=== PATIENT | female | born 1945 | race Caucasian/White ===

== ENCOUNTER 2017-08-23 18:14 | Emergency (ER) | payer MEDICARE, OTHER ==
[2017-08-23 20:10] LABS: ADD MAN DIFF? NO
[2017-08-23 20:30] LABS: ALANINE AMINOTRANSFERASE 21 IU/L (13-69); ALBUMIN/GLOBULIN RATIO 1.21; ALKALINE PHOSPHATASE 58 IU/L (42-121); ANION GAP 15 (8-16); ASPARTATE AMINO TRANSFERASE 18 IU/L (15-46); BLOOD UREA NITROGEN 32 mg/dl (7-20); CALCIUM 9.4 mg/dl (8.4-10.2); CARBON DIOXIDE 24 mmol/L (21-31); CHLORIDE 105 mmol/L (97-110); CREATININE 1.07 mg/dl (0.44-1.00); GLUCOSE 113 mg/dl (70-220); LIPASE 133 U/L (23-300); POTASSIUM 5.2 mmol/L (3.5-5.1); SODIUM 139 mmol/L (135-144); TOTAL PROTEIN 7.3 g/dl (6.1-8.1)
[2017-08-23] MEDS: SOD CHLORIDE 0.9% 500 ML IV ×2 (20:30→21:55)
[2017-08-23 20:32] LABS: ADD UMIC NO; UR ASCORBIC ACID NEGATIVE (NEGATIVE); UR BILIRUBIN (Dip) NEGATIVE (NEGATIVE); UR BLOOD (Dip) NEGATIVE (NEGATIVE); UR CLARITY CLEAR (CLEAR); UR COLOR YELLOW (YELLOW); UR GLUCOSE (Dip) NEGATIVE (NEGATIVE); UR KETONES (Dip) TRACE mg/dL (NEGATIVE); UR LEUKOCYTE ESTERASE (Dip) NEGATIVE Leu/ul (NEGATIVE); UR NITRITE (Dip) NEGATIVE (NEGATIVE); UR SPECIFIC GRAVITY (Dip) 1.019 (1.003-1.030); UR TOTAL PROTEIN (Dip) NEGATIVE (NEGATIVE); UR UROBILINOGEN (Dip) NEGATIVE (NEGATIVE)
[2017-08-23 21:10] LABS: BASOPHIL # 0.1 10^3/ul (0.0-0.1); BASOPHILS % 0.9 % (0.0-2.0); EOSINOPHILS # 0.2 10^3/ul (0.0-0.5); EOSINOPHILS % 2.7 % (0.0-7.0); HEMATOCRIT 34.5 % (37.0-47.0); HEMOGLOBIN 11.1 g/dl (12.0-16.0); LYMPHOCYTES # 2.4 10^3/ul (0.8-2.9); LYMPHOCYTES % 36.3 % (15.0-51.0); MEAN CORPUSCULAR HEMOGLOBIN 29.1 pg (29.0-33.0); MEAN CORPUSCULAR HGB CONC 32.2 g/dl (32.0-37.0); MEAN CORPUSCULAR VOLUME 90.6 fl (82.0-101.0); MEAN PLATELET VOLUME 10.5 fl (7.4-10.4); MONOCYTE # 0.5 10^3/ul (0.3-0.9); MONOCYTES % 7.5 % (0.0-11.0); NEUTROPHIL # 3.4 10^3/ul (1.6-7.5); NEUTROPHILS % 52.4 % (39.0-77.0); PLATELET COUNT 253 10^3/UL (140-415); RED BLOOD COUNT 3.81 10^6/ul (4.20-5.40); RED CELL DISTRIBUTION WIDTH 13.3 % (11.5-14.5)
[2017-08-23 21:10] LABS: WHITE BLOOD COUNT 6.6 10^3/ul (4.8-10.8)
[2017-08-23] MEDS: DICYCLOMINE 20 MG INJ IM (21:34)
[2017-08-23] MEDS: morphine 4 MG/ML VIAL IV (22:35)
[2017-08-23] MEDS: metroNIDAZOLE 500 MG TAB PO (22:36)
[2017-08-23] MEDS: CIPROFLOXACIN 500 MG TAB PO (22:36)
== END 2017-08-23 23:45 | disposition home or self-care (01) ==
LOC: E/R 18:14
DX: K57.32 Diverticulitis of large intestine without perforation or abscess without bleeding (principal); R39.2 Extrarenal uremia; I10 Essential (primary) hypertension
CPT/HCPCS: 36415; 74176; 80053; 81003; 83690; 85025; 96361; 96372; 96374; 99285-25

== ENCOUNTER 2017-09-11 09:56 | Inpatient (IN) | payer MEDICARE, OTHER ==
[2017-09-11] MEDS: SOD CHLORIDE 0.9% 1,000 ML IV (10:33)
[2017-09-11 10:39] LABS: ADD MAN DIFF? NO
[2017-09-11 10:41] LABS: BASOPHIL # 0.1 10^3/ul (0.0-0.1); BASOPHILS % 1.2 % (0.0-2.0); EOSINOPHILS # 0.3 10^3/ul (0.0-0.5); EOSINOPHILS % 6.6 % (0.0-7.0); HEMATOCRIT 35.4 % (37.0-47.0); HEMOGLOBIN 11.7 g/dl (12.0-16.0); LYMPHOCYTES # 1.7 10^3/ul (0.8-2.9); LYMPHOCYTES % 41.2 % (15.0-51.0); MEAN CORPUSCULAR HEMOGLOBIN 28.6 pg (29.0-33.0); MEAN CORPUSCULAR HGB CONC 33.1 g/dl (32.0-37.0); MEAN CORPUSCULAR VOLUME 86.6 fl (82.0-101.0); MEAN PLATELET VOLUME 9.8 fl (7.4-10.4); MONOCYTE # 0.3 10^3/ul (0.3-0.9); MONOCYTES % 7.3 % (0.0-11.0); NEUTROPHIL # 1.8 10^3/ul (1.6-7.5); NEUTROPHILS % 43.2 % (39.0-77.0); PLATELET COUNT 229 10^3/UL (140-415); RED BLOOD COUNT 4.09 10^6/ul (4.20-5.40); RED CELL DISTRIBUTION WIDTH 13.7 % (11.5-14.5)
[2017-09-11 10:41] LABS: WHITE BLOOD COUNT 4.2 10^3/ul (4.8-10.8)
[2017-09-11 10:57] LABS: ALANINE AMINOTRANSFERASE 19 IU/L (13-69); ALBUMIN 4.1 g/dl (3.3-4.9); ALKALINE PHOSPHATASE 56 IU/L (42-121); ANION GAP 14 (8-16); ASPARTATE AMINO TRANSFERASE 19 IU/L (15-46); BILIRUBIN,INDIRECT 0.1 mg/dl (0-1.1); BILIRUBIN,TOTAL 0.1 mg/dl (0.2-1.3); BLOOD UREA NITROGEN 24 mg/dl (7-20); CALCIUM 9.5 mg/dl (8.4-10.2); CARBON DIOXIDE 28 mmol/L (21-31); CHLORIDE 104 mmol/L (97-110); CREATININE 0.98 mg/dl (0.44-1.00); GLUCOSE 108 mg/dl (70-220); LIPASE 101 U/L (23-300); SODIUM 142 mmol/L (135-144); TOTAL PROTEIN 7.5 g/dl (6.1-8.1)
[2017-09-11 10:59] LABS: ADD UMIC YES; UR ASCORBIC ACID NEGATIVE (NEGATIVE); UR BACTERIA FEW /HPF (NONE SEEN); UR BILIRUBIN (Dip) NEGATIVE (NEGATIVE); UR BLOOD (Dip) 1+ mg/dL (NEGATIVE); UR CLARITY SLIGHTLY CLOUDY (CLEAR); UR COLOR YELLOW (YELLOW); UR GLUCOSE (Dip) NEGATIVE (NEGATIVE); UR KETONES (Dip) NEGATIVE (NEGATIVE); UR LEUKOCYTE ESTERASE (Dip) 2+ Leu/ul (NEGATIVE); UR MUCUS MANY /HPF (NONE SEEN); UR NITRITE (Dip) NEGATIVE (NEGATIVE); UR RBC 7 /HPF (0-5); UR SPECIFIC GRAVITY (Dip) 1.024 (1.003-1.030); UR SQUAMOUS EPITHELIAL CELL FEW /HPF (FEW); UR TOTAL PROTEIN (Dip) 2+ mg/dl (NEGATIVE); UR UROBILINOGEN (Dip) 1+ mg/dL (NEGATIVE); UR WBC 13 /HPF (0-5)
[2017-09-11] MEDS: SOD CHLORIDE 0.9% 100 ML (12:03)
[2017-09-11] MEDS: IOHEXOL 300MG/ML 150 ML BTL (12:03)
[2017-09-11] MEDS: KETOROLAC 15 MG INJ IV (13:41)
[2017-09-11] MEDS: PIPER-TAZO 3.375 GM IV (PMX) 100 ML IVPB ×2 (13:41→20:07)
[2017-09-11] MEDS ORDERED: ONDANSETRON 4 MG INJ IV (14:00)
[2017-09-11] MEDS ORDERED: ACETAMINOPHEN 325 MG TAB PO (14:00)
[2017-09-11] MEDS: LOSARTAN 50 MG TAB PO (18:14)
[2017-09-11] MEDS: AMLODIPINE 5 MG TAB PO (18:14)
[2017-09-11] MEDS: DEXTROSE 5%-0.45% NACL 1,000 ML IV (18:55)
[2017-09-11] MEDS: DIVALPROEX (EC) 500 MG TAB PO (20:07)
[2017-09-12] MEDS: PANTOPRAZOLE (EC) 40 MG TAB PO (05:24)
[2017-09-12] MEDS: PIPER-TAZO 3.375 GM IV (PMX) 100 ML IVPB ×3 (05:24→12:20)
[2017-09-12 06:03] LABS: ADD MAN DIFF? NO
[2017-09-12 06:07] LABS: BASOPHIL # 0.1 10^3/ul (0.0-0.1)
[2017-09-12 06:18] LABS: EOSINOPHILS # 0.3 10^3/ul (0.0-0.5); EOSINOPHILS % 6.2 % (0.0-7.0); HEMATOCRIT 29.4 % (37.0-47.0); HEMOGLOBIN 9.9 g/dl (12.0-16.0); LYMPHOCYTES # 2.3 10^3/ul (0.8-2.9); LYMPHOCYTES % 43.7 % (15.0-51.0); MEAN CORPUSCULAR HEMOGLOBIN 29.3 pg (29.0-33.0); MEAN CORPUSCULAR HGB CONC 33.7 g/dl (32.0-37.0); MEAN PLATELET VOLUME 10.3 fl (7.4-10.4); MONOCYTE # 0.4 10^3/ul (0.3-0.9); MONOCYTES % 7.6 % (0.0-11.0); NEUTROPHIL # 2.1 10^3/ul (1.6-7.5); NEUTROPHILS % 41.3 % (39.0-77.0); PLATELET COUNT 180 10^3/UL (140-415); RED BLOOD COUNT 3.38 10^6/ul (4.20-5.40)
[2017-09-12 06:18] LABS: WHITE BLOOD COUNT 5.2 10^3/ul (4.8-10.8)
[2017-09-12 06:57] LABS: ALANINE AMINOTRANSFERASE 15 IU/L (13-69); ALBUMIN/GLOBULIN RATIO 0.93; ALKALINE PHOSPHATASE 40 IU/L (42-121); ANION GAP 10 (8-16); ASPARTATE AMINO TRANSFERASE 16 IU/L (15-46); BILIRUBIN,INDIRECT 0.1 mg/dl (0-1.1); BILIRUBIN,TOTAL 0.1 mg/dl (0.2-1.3); BLOOD UREA NITROGEN 17 mg/dl (7-20); CALCIUM 8.8 mg/dl (8.4-10.2); CARBON DIOXIDE 26 mmol/L (21-31); CHLORIDE 106 mmol/L (97-110); CREATININE 0.88 mg/dl (0.44-1.00); GLUCOSE 128 mg/dl (70-220); POTASSIUM 4.1 mmol/L (3.5-5.1); SODIUM 138 mmol/L (135-144); TOTAL PROTEIN 6.2 g/dl (6.1-8.1)
[2017-09-12] MEDS: DEXTROSE 5%-0.45% NACL 1,000 ML IV ×2 (07:20→09:16)
[2017-09-12] MEDS: AMLODIPINE 5 MG TAB PO ×2 (09:00→11:23)
[2017-09-12] MEDS: LOSARTAN 50 MG TAB PO ×2 (09:00→11:23)
[2017-09-12] MEDS: DIVALPROEX (EC) 500 MG TAB PO ×2 (09:04→12:41)
[2017-09-12] MEDS: DOCUSATE SODIUM 100 MG CAP PO (09:04)
== END 2017-09-12 16:48 | disposition home or self-care (01) | DRG 392 ==
LOC: E/R 09:56 → PP2 16:06
DX: K57.92 Diverticulitis of intestine, part unspecified, without perforation or abscess without bleeding (principal); G40.909 Epilepsy, unspecified, not intractable, without status epilepticus; I10 Essential (primary) hypertension; E78.5 Hyperlipidemia, unspecified
CPT/HCPCS: 36415; 74177; 80053; 81001; 83690; 84443; 85025; 87081; 87086; 93005; 96374; 96375; 99285-25

== ENCOUNTER 2017-10-16 19:42 | Emergency (ER) | payer MEDICARE, OTHER ==
[2017-10-16 20:17] LABS: ADD MAN DIFF? NO
[2017-10-16 20:19] LABS: BASOPHILS % 0.7 % (0.0-2.0); EOSINOPHILS # 0.2 10^3/ul (0.0-0.5); HEMATOCRIT 35.7 % (37.0-47.0); HEMOGLOBIN 11.9 g/dl (12.0-16.0); LYMPHOCYTES % 34.2 % (15.0-51.0); MEAN CORPUSCULAR HEMOGLOBIN 28.6 pg (29.0-33.0); MEAN CORPUSCULAR HGB CONC 33.3 g/dl (32.0-37.0); MEAN CORPUSCULAR VOLUME 85.8 fl (82.0-101.0); MEAN PLATELET VOLUME 9.5 fl (7.4-10.4); MONOCYTE # 0.6 10^3/ul (0.3-0.9); MONOCYTES % 10.1 % (0.0-11.0); NEUTROPHIL # 3.1 10^3/ul (1.6-7.5); NEUTROPHILS % 51.7 % (39.0-77.0); PLATELET COUNT 215 10^3/UL (140-415); RED BLOOD COUNT 4.16 10^6/ul (4.20-5.40); RED CELL DISTRIBUTION WIDTH 14.2 % (11.5-14.5)
[2017-10-16 20:40] LABS: ANION GAP 17 (8-16); BLOOD UREA NITROGEN 31 mg/dl (7-20); CALCIUM 9.4 mg/dl (8.4-10.2); CARBON DIOXIDE 27 mmol/L (21-31); CHLORIDE 105 mmol/L (97-110); CREATININE 1.33 mg/dl (0.44-1.00); GLUCOSE 123 mg/dl (70-220); POTASSIUM 4.3 mmol/L (3.5-5.1); SODIUM 145 mmol/L (135-144)
[2017-10-16] MEDS: SOD CHLORIDE 0.9% 500 ML IV (20:46)
[2017-10-16] MEDS: KETOROLAC 15 MG INJ IV (20:46)
[2017-10-16] MEDS: DICYCLOMINE 20 MG INJ IM (20:47)
== END 2017-10-16 22:16 | disposition home or self-care (01) ==
LOC: E/R 19:42
DX: R10.84 Generalized abdominal pain (principal); I10 Essential (primary) hypertension
CPT/HCPCS: 36415; 74019; 80048; 85025; 96372; 96374; 99284-25

== ENCOUNTER 2017-10-19 15:30 | Emergency (ER) | payer MEDICARE, OTHER ==
[2017-10-19] MEDS: SOD CHLORIDE 0.9% 1,000 ML IV (16:18)
[2017-10-19] MEDS: morphine 4 MG/ML VIAL IV (16:18)
[2017-10-19] MEDS: ONDANSETRON 4 MG INJ IV ×2 (16:18→18:38)
[2017-10-19 16:43] LABS: ADD MAN DIFF? NO
[2017-10-19 16:45] LABS: BASOPHILS % 0.7 % (0.0-2.0); EOSINOPHILS # 0.1 10^3/ul (0.0-0.5); EOSINOPHILS % 2.4 % (0.0-7.0); HEMATOCRIT 33.2 % (37.0-47.0); LYMPHOCYTES # 1.6 10^3/ul (0.8-2.9); LYMPHOCYTES % 29.7 % (15.0-51.0); MEAN CORPUSCULAR HEMOGLOBIN 28.7 pg (29.0-33.0); MEAN CORPUSCULAR HGB CONC 33.1 g/dl (32.0-37.0); MEAN CORPUSCULAR VOLUME 86.7 fl (82.0-101.0); MEAN PLATELET VOLUME 10.1 fl (7.4-10.4); MONOCYTE # 0.5 10^3/ul (0.3-0.9); MONOCYTES % 9.4 % (0.0-11.0); NEUTROPHIL # 3.1 10^3/ul (1.6-7.5); NEUTROPHILS % 57.4 % (39.0-77.0); PLATELET COUNT 209 10^3/UL (140-415); RED BLOOD COUNT 3.83 10^6/ul (4.20-5.40); RED CELL DISTRIBUTION WIDTH 14.3 % (11.5-14.5)
[2017-10-19 16:45] LABS: WHITE BLOOD COUNT 5.5 10^3/ul (4.8-10.8)
[2017-10-19 17:00] LABS: INR 0.91; PROTIME 12.3 Sec (11.9-14.9)
[2017-10-19 17:01] LABS: PARTIAL THROMBOPLASTIN TIME 42.1 Sec (25.0-35.0)
[2017-10-19 17:05] LABS: ALANINE AMINOTRANSFERASE 9 IU/L (13-69); ALBUMIN 3.9 g/dl (3.3-4.9); ALBUMIN/GLOBULIN RATIO 1.14; ALKALINE PHOSPHATASE 46 IU/L (42-121); AMYLASE 50 U/L (11-123); ANION GAP 18 (8-16); ASPARTATE AMINO TRANSFERASE 18 IU/L (15-46); BLOOD UREA NITROGEN 20 mg/dl (7-20); CALCIUM 9.2 mg/dl (8.4-10.2); CARBON DIOXIDE 29 mmol/L (21-31); CHLORIDE 104 mmol/L (97-110); CREATININE 0.96 mg/dl (0.44-1.00); GLUCOSE 92 mg/dl (70-220); LIPASE 66 U/L (23-300); POTASSIUM 4.4 mmol/L (3.5-5.1); SODIUM 147 mmol/L (135-144); TOTAL PROTEIN 7.3 g/dl (6.1-8.1)
[2017-10-19 17:15] LABS: ADD UMIC YES; UR ASCORBIC ACID NEGATIVE (NEGATIVE); UR BILIRUBIN (Dip) NEGATIVE (NEGATIVE); UR BLOOD (Dip) NEGATIVE (NEGATIVE); UR CLARITY SLIGHTLY CLOUDY (CLEAR); UR COLOR YELLOW (YELLOW); UR GLUCOSE (Dip) NEGATIVE (NEGATIVE); UR KETONES (Dip) TRACE mg/dL (NEGATIVE); UR LEUKOCYTE ESTERASE (Dip) TRACE Leu/ul (NEGATIVE); UR MUCUS MANY /HPF (NONE SEEN); UR NITRITE (Dip) NEGATIVE (NEGATIVE); UR RBC 2 /HPF (0-5); UR SPECIFIC GRAVITY (Dip) 1.024 (1.003-1.030); UR TOTAL PROTEIN (Dip) 2+ mg/dl (NEGATIVE); UR UROBILINOGEN (Dip) 2+ mg/dL (NEGATIVE); UR WBC 5 /HPF (0-5)
[2017-10-19 17:17] LABS: TROPONIN-I < 0.012 ng/ml (0.00-0.12)
[2017-10-19] MEDS: HYDROmorphONE 0.5 MG/0.5 ML SYG IV (18:39)
[2017-10-19] MEDS: KETOROLAC 30 MG INJ IV (18:39)
== END 2017-10-19 19:09 | disposition home or self-care (01) ==
LOC: E/R 15:30
DX: K57.90 Diverticulosis of intestine, part unspecified, without perforation or abscess without bleeding (principal); I10 Essential (primary) hypertension
CPT/HCPCS: 80053; 81001; 82150; 83690; 84484; 85025; 85610; 85730; 87086; 93005; 96374; 96375; 96376; 99284-25

== ENCOUNTER 2017-10-20 20:50 | Emergency (ER) | payer MEDICARE, OTHER ==
[2017-10-20] MEDS: ONDANSETRON 4 MG INJ IV (22:04)
[2017-10-20] MEDS: morphine 4 MG/ML VIAL IV (22:07)
[2017-10-20 22:09] LABS: ADD MAN DIFF? NO
[2017-10-20 22:11] LABS: BASOPHILS % 0.6 % (0.0-2.0); EOSINOPHILS # 0.2 10^3/ul (0.0-0.5); EOSINOPHILS % 3.3 % (0.0-7.0); HEMATOCRIT 33.7 % (37.0-47.0); HEMOGLOBIN 10.9 g/dl (12.0-16.0); LYMPHOCYTES # 1.9 10^3/ul (0.8-2.9); LYMPHOCYTES % 38.8 % (15.0-51.0); MEAN CORPUSCULAR HEMOGLOBIN 28.3 pg (29.0-33.0); MEAN CORPUSCULAR HGB CONC 32.3 g/dl (32.0-37.0); MEAN CORPUSCULAR VOLUME 87.5 fl (82.0-101.0); MEAN PLATELET VOLUME 10.4 fl (7.4-10.4); MONOCYTE # 0.4 10^3/ul (0.3-0.9); NEUTROPHIL # 2.4 10^3/ul (1.6-7.5); NEUTROPHILS % 48.5 % (39.0-77.0); PLATELET COUNT 229 10^3/UL (140-415); RED BLOOD COUNT 3.85 10^6/ul (4.20-5.40); RED CELL DISTRIBUTION WIDTH 14.3 % (11.5-14.5)
[2017-10-20 22:11] LABS: WHITE BLOOD COUNT 4.9 10^3/ul (4.8-10.8)
[2017-10-20 22:46] LABS: ALANINE AMINOTRANSFERASE 18 IU/L (13-69); ALBUMIN 3.8 g/dl (3.3-4.9); ALBUMIN/GLOBULIN RATIO 1.08; ALKALINE PHOSPHATASE 101 IU/L (42-121); ANION GAP 11 (8-16); ASPARTATE AMINO TRANSFERASE 25 IU/L (15-46); BILIRUBIN,INDIRECT 0.1 mg/dl (0-1.1); BILIRUBIN,TOTAL 0.1 mg/dl (0.2-1.3); BLOOD UREA NITROGEN 25 mg/dl (7-20); CALCIUM 9.1 mg/dl (8.4-10.2); CARBON DIOXIDE 29 mmol/L (21-31); CHLORIDE 106 mmol/L (97-110); CREATININE 1.03 mg/dl (0.44-1.00); GLUCOSE 98 mg/dl (70-220); LIPASE 120 U/L (23-300); POTASSIUM 4.2 mmol/L (3.5-5.1); SODIUM 142 mmol/L (135-144); TOTAL PROTEIN 7.3 g/dl (6.1-8.1)
[2017-10-20 22:58] LABS: TROPONIN-I < 0.012 ng/ml (0.00-0.12)
== END 2017-10-20 23:50 | disposition home or self-care (01) ==
LOC: E/R 20:50
DX: R10.84 Generalized abdominal pain (principal); I10 Essential (primary) hypertension
CPT/HCPCS: 36415; 74176; 80053; 83690; 84484; 85025; 93005; 96374; 96375; 99285-25

== ENCOUNTER 2017-10-22 13:31 | Emergency (ER) | payer MEDICARE, OTHER ==
[2017-10-22] MEDS: metroNIDAZOLE 500 MG TAB PO (14:18)
[2017-10-22] MEDS: CIPROFLOXACIN 500 MG TAB PO (14:18)
[2017-10-22] MEDS: HYDROCODONE/APAP (10/325) TAB PO (14:19)
== END 2017-10-22 15:32 | disposition home or self-care (01) ==
LOC: E/R 13:31
DX: K57.92 Diverticulitis of intestine, part unspecified, without perforation or abscess without bleeding (principal)
CPT/HCPCS: 99284

== ENCOUNTER 2017-12-11 14:33 | Emergency (ER) | payer MEDICARE, OTHER ==
[2017-12-11] MEDS: morphine 2 MG INJ IV (17:35)
[2017-12-11] MEDS: FAMOTIDINE 20 MG TAB PO (17:35)
[2017-12-11] MEDS: ONDANSETRON 4 MG INJ IV (17:35)
[2017-12-11] MEDS: SOD CHLORIDE 0.9% 1,000 ML IV (17:35)
[2017-12-11 17:53] LABS: ADD MAN DIFF? NO
[2017-12-11 17:59] LABS: WHITE BLOOD COUNT 5.1 10^3/ul (4.8-10.8)
[2017-12-11 17:59] LABS: BASOPHILS % 0.8 % (0.0-2.0); EOSINOPHILS # 0.2 10^3/ul (0.0-0.5); EOSINOPHILS % 2.9 % (0.0-7.0); HEMATOCRIT 36.1 % (37.0-47.0); HEMOGLOBIN 11.7 g/dl (12.0-16.0); LYMPHOCYTES % 39.5 % (15.0-51.0); MEAN CORPUSCULAR HEMOGLOBIN 28.5 pg (29.0-33.0); MEAN CORPUSCULAR HGB CONC 32.4 g/dl (32.0-37.0); MEAN PLATELET VOLUME 10.4 fl (7.4-10.4); MONOCYTE # 0.4 10^3/ul (0.3-0.9); MONOCYTES % 8.4 % (0.0-11.0); NEUTROPHIL # 2.5 10^3/ul (1.6-7.5); NEUTROPHILS % 48.2 % (39.0-77.0); PLATELET COUNT 220 10^3/UL (140-415); RED CELL DISTRIBUTION WIDTH 14.2 % (11.5-14.5)
[2017-12-11 18:21] LABS: ALANINE AMINOTRANSFERASE 9 IU/L (13-69); ALBUMIN 3.7 g/dl (3.3-4.9); ALBUMIN/GLOBULIN RATIO 1.02; ALKALINE PHOSPHATASE 52 IU/L (42-121); ANION GAP 13 (8-16); ASPARTATE AMINO TRANSFERASE 25 IU/L (15-46); BLOOD UREA NITROGEN 35 mg/dl (7-20); CALCIUM 9.4 mg/dl (8.4-10.2); CARBON DIOXIDE 28 mmol/L (21-31); CHLORIDE 106 mmol/L (97-110); CREATININE 0.99 mg/dl (0.44-1.00); GLUCOSE 93 mg/dl (70-220); LIPASE 142 U/L (23-300); POTASSIUM 5.1 mmol/L (3.5-5.1); SODIUM 142 mmol/L (135-144); TOTAL PROTEIN 7.3 g/dl (6.1-8.1)
[2017-12-11 18:34] LABS: TROPONIN-I < 0.012 ng/ml (0.00-0.12)
[2017-12-11 18:38] LABS: URINE BLOOD (Dip) POC Negative (NEGATIVE); URINE GLUCOSE (Dip) POC Negative (NEGATIVE); URINE KETONES (Dip) POC 1+ (NEGATIVE); URINE LEUKOCYTE EST (Dip) POC 1+ (NEGATIVE); URINE NITRITE (Dip) POC Negative (NEGATIVE); URINE TOTAL PROTEIN POC Trace (NEGATIVE)
[2017-12-11 18:38] LABS: URINE PH (Dip) POC 5.5 (5.0-8.5)
[2017-12-11] MEDS ORDERED: PROPOFOL 200 MG INJ IV (19:00)
== END 2017-12-11 20:48 | disposition home or self-care (01) ==
LOC: E/R 14:33
DX: R10.13 Epigastric pain (principal); D64.9 Anemia, unspecified; R11.0 Nausea; I10 Essential (primary) hypertension; R40.2142 Coma scale, eyes open, spontaneous, at arrival to emergency department; R40.2252 Coma scale, best verbal response, oriented, at arrival to emergency department; R40.2362 Coma scale, best motor response, obeys commands, at arrival to emergency department
CPT/HCPCS: 74176; 76705; 80053; 81003; 83690; 84484; 85025; 93005; 96374; 96375; 99285-25

== ENCOUNTER 2018-02-02 11:54 | Inpatient (IN) | payer MEDICARE, OTHER ==
[2018-02-01] MEDS: CEFAZOLIN 2 GM/50 ML (PMX) 50 ML IVPB (16:00)
[2018-02-01] MEDS: metroNIDAZOLE 500 MG/NS (PMX) 100 ML IVPB (16:20)
[~2018-02-02 11:54] MED LIST: ACETAMINOPHEN 1000 MG/100 ML IVPB; ALBUMIN HUMAN 5% 250 ML INJ; CA CHLORIDE 10% 10 ML SYRINGE; CEFAZOLIN 1 GM INJ; DEXAMETHASONE 4 MG/ML 1 ML INJ; ONDANSETRON 4 MG INJ; SUGAMMADEX SODIUM 200 MG/2 ML VIAL IV; metroNIDAZOLE 500 MG/100 ML NS IVPB
[2018-02-02] MEDS ORDERED: FENTAnyl 50 MCG/ML VIAL (14:10)
[2018-02-02] MEDS ORDERED: MIDAZOLAM 1 MG/ML 2 ML INJ ×2 (14:13→14:17)
[2018-02-02] MEDS ORDERED: ROCURONIUM 50 MG INJ (14:13)
[2018-02-02] MEDS ORDERED: LIDOCAINE 2% (SDV) 5 ML INJ (14:13)
[2018-02-02] MEDS ORDERED: PROPOFOL 20 ML (14:13)
[2018-02-02] MEDS ORDERED: SUCCINYLCHOLINE CHLORIDE 100 MG/5 ML SYG IV (14:13)
[2018-02-02] MEDS ORDERED: ONDANSETRON 4 MG INJ (14:15)
[2018-02-02] MEDS: LIDOCAINE 1% (MPF) 30 ML INJ (16:21)
[2018-02-02] MEDS: BUPIVACAINE 0.25%/EPI (SDV) 30 ML INJ (16:21)
[2018-02-02] MEDS ORDERED: EPHEDrine 50 MG INJ (16:25)
[2018-02-02] MEDS ORDERED: ROPIVACAINE 0.5 % 30 ML VIAL (19:59)
[2018-02-02] MEDS ORDERED: HYDROmorphONE 1 MG/5 ML IV SYRINGE IV ×3 (20:25→20:30)
[2018-02-02] MEDS ORDERED: ONDANSETRON 4 MG INJ IV ×2 (20:30→23:00)
[2018-02-02] MEDS ORDERED: ACETAMINOPHEN 1000MG/100ML IV 100 ML IVPB (20:30)
[2018-02-02] MEDS ORDERED: LORAZEPAM 2 MG INJ IV (20:30)
[2018-02-02] MEDS ORDERED: HALOPERIDOL 5 MG INJ IV (20:30)
[2018-02-02] MEDS ORDERED: hydrALAzine 20 MG INJ IV (20:30)
[2018-02-02] MEDS ORDERED: FENTAnyl 50 MCG/ML VIAL IV ×2 (20:30)
[2018-02-02] MEDS ORDERED: LABETALOL HCL 20MG INJ IV (20:30)
[2018-02-02] MEDS ORDERED: MIDAZOLAM 1 MG/ML 2 ML INJ IV (20:30)
[2018-02-02] MEDS ORDERED: IPRATROPIUM (NEB) 0.5 MG/2.5 ML AMP HHN (20:30)
[2018-02-02] MEDS ORDERED: PROCHLORPERAZINE 10 MG INJ IV (20:30)
[2018-02-02] MEDS ORDERED: KETOROLAC 30 MG INJ IV (20:30)
[2018-02-02] MEDS ORDERED: DIPHENHYDRAMINE 50 MG INJ IV (20:30)
[2018-02-02] MEDS: HYDROmorphONE 1 MG/5 ML IV SYRINGE IV ×2 (20:42→21:09)
[2018-02-02 20:57] LABS: ADD MAN DIFF? NO
[2018-02-02] MEDS: ACETAMINOPHEN 1000MG/100ML IV 100 ML IVPB (20:59)
[2018-02-02 21:02] LABS: WHITE BLOOD COUNT 7.4 10^3/ul (4.8-10.8)
[2018-02-02 21:02] LABS: BASOPHILS % 0.4 % (0.0-2.0); EOSINOPHILS % 0.1 % (0.0-7.0); HEMATOCRIT 29.9 % (37.0-47.0); HEMOGLOBIN 9.9 g/dl (12.0-16.0); LYMPHOCYTES # 1.5 10^3/ul (0.8-2.9); LYMPHOCYTES % 19.8 % (15.0-51.0); MEAN CORPUSCULAR HEMOGLOBIN 29.4 pg (29.0-33.0); MEAN CORPUSCULAR HGB CONC 33.1 g/dl (32.0-37.0); MEAN CORPUSCULAR VOLUME 88.7 fl (82.0-101.0); MEAN PLATELET VOLUME 10.8 fl (7.4-10.4); MONOCYTE # 0.4 10^3/ul (0.3-0.9); NEUTROPHIL # 5.5 10^3/ul (1.6-7.5); NEUTROPHILS % 74.3 % (39.0-77.0); RED BLOOD COUNT 3.37 10^6/ul (4.20-5.40); RED CELL DISTRIBUTION WIDTH 14.7 % (11.5-14.5)
[2018-02-02 21:16] LABS: LACTIC ACID 1.9 mmol/L (0.5-2.0)
[2018-02-02 21:17] LABS: ANION GAP 17 (8-16); BLOOD UREA NITROGEN 19 mg/dl (7-20); CALCIUM 10.1 mg/dl (8.4-10.2); CARBON DIOXIDE 23 mmol/L (21-31); CHLORIDE 106 mmol/L (97-110); CREATININE 0.74 mg/dl (0.44-1.00); GLUCOSE 143 mg/dl (70-220); SODIUM 142 mmol/L (135-144)
[2018-02-02 21:19] LABS: INR 1.12; PROTIME 14.6 Sec (11.9-14.9); PT RATIO 1.1
[2018-02-02 21:23] LABS: PLATELET COUNT 104 10^3/UL (140-415); POSITIVE DIFF @See below
[2018-02-02 21:25] LABS: HOLD TRANSMISSIONS 1
[2018-02-02] MEDS ORDERED: metroNIDAZOLE 500 MG/NS (PMX) 100 ML IVPB (23:00)
[2018-02-02] MEDS ORDERED: CEFAZOLIN 3 GM in SOD CHLORIDE 0.9% 100 ML IVPB (23:00)
[2018-02-02] MEDS: morphine 2 MG INJ IV (23:12)
[2018-02-02] MEDS: CEFAZOLIN 2 GM/50 ML (PMX) 50 ML IVPB (23:20)
[2018-02-02] MEDS: D5W-0.45 NACL + KCL 20 MEQ 1,000 ML IV (23:27)
[2018-02-02] MEDS: ONDANSETRON 4 MG INJ IV (23:53)
[2018-02-02] MEDS: metroNIDAZOLE 500 MG/NS (PMX) 100 ML IVPB (23:54)
[2018-02-03] MEDS: KETOROLAC 15 MG INJ IV ×2 (00:45→14:14)
[2018-02-03] MEDS: ACETAMINOPHEN 1000MG/100ML IV 100 ML IVPB ×4 (02:12→19:46)
[2018-02-03] MEDS: CEFAZOLIN 2 GM/50 ML (PMX) 50 ML IVPB ×2 (04:52→11:33)
[2018-02-03 05:09] LABS: WHITE BLOOD COUNT 1.8 10^3/ul (4.8-10.8)
[2018-02-03 05:09] LABS: ABNORMAL IP MESSAGE 1; HEMATOCRIT 32.3 % (37.0-47.0); HEMOGLOBIN 10.5 g/dl (12.0-16.0); MEAN CORPUSCULAR HEMOGLOBIN 28.5 pg (29.0-33.0); MEAN CORPUSCULAR HGB CONC 32.5 g/dl (32.0-37.0); MEAN CORPUSCULAR VOLUME 87.8 fl (82.0-101.0); MEAN PLATELET VOLUME 10.1 fl (7.4-10.4); PLATELET COUNT 152 10^3/UL (140-415); RED BLOOD COUNT 3.68 10^6/ul (4.20-5.40); RED CELL DISTRIBUTION WIDTH 14.6 % (11.5-14.5)
[2018-02-03 05:17] LABS: POSITIVE DIFF @See below
[2018-02-03 05:18] LABS: ADD MAN DIFF? YES
[2018-02-03 05:42] LABS: ALANINE AMINOTRANSFERASE 23 IU/L (13-69); ALBUMIN 3.9 g/dl (3.3-4.9); ALBUMIN/GLOBULIN RATIO 1.44; ALKALINE PHOSPHATASE 41 IU/L (42-121); ANION GAP 16 (8-16); ASPARTATE AMINO TRANSFERASE 52 IU/L (15-46); BILIRUBIN,INDIRECT 0.3 mg/dl (0-1.1); BILIRUBIN,TOTAL 0.3 mg/dl (0.2-1.3); BLOOD UREA NITROGEN 19 mg/dl (7-20); CALCIUM 9.6 mg/dl (8.4-10.2); CARBON DIOXIDE 24 mmol/L (21-31); CHLORIDE 105 mmol/L (97-110); CREATININE 0.71 mg/dl (0.44-1.00); GLUCOSE 172 mg/dl (70-220); SODIUM 141 mmol/L (135-144); TOTAL PROTEIN 6.6 g/dl (6.1-8.1)
[2018-02-03] MEDS: PANTOPRAZOLE 40 MG INJ IV (06:13)
[2018-02-03] MEDS: metroNIDAZOLE 500 MG/NS (PMX) 100 ML IVPB ×2 (06:13→14:14)
[2018-02-03] MEDS: ENOXAPARIN 40 MG/0.4 ML SYG SC (06:20)
[2018-02-03] MEDS: morphine 2 MG INJ IV ×3 (06:22→21:00)
[2018-02-03] MEDS: HYDROmorphONE 0.5 MG/0.5 ML SYG IV ×2 (09:43→17:49)
[2018-02-03] MEDS: ONDANSETRON 4 MG INJ IV (09:43)
[2018-02-03] MEDS: D5W-0.45 NACL + KCL 20 MEQ 1,000 ML IV ×2 (12:13→17:51)
[2018-02-03 13:04] LABS: BAND NEUTROPHILS #M 0.5 10^3/ul (0.0-0.6); BAND NEUTROPHILS % (M) 32 % (0-4); EOSINOPHILS % (M) 1 % (0-7); GIANT THROMBO% (M) 2 % (0-0); LYMPHOCYTES #M 0.2 10^3/ul (0.8-2.9); LYMPHOCYTES % (M) 16 % (15-51); METAMYELOCYTES %M 3 % (0-0); MONOCYTE #M 0.1 10^3/ul (0.3-0.9); MONOCYTES % (M) 8 % (0-11); MYELOCYTES % (M) 1 % (0-0); PLATELET ESTIMATE NORMAL; PLATELET MORPHOLOGY COMMENT @See below; POIKILOCYTOSIS 1+ (0-0); PROMYELOCYTES % (M) 2 % (0-0); REACTIVE LYMPHOCYTES% (M) 4 % (0-0); SEG NEUT #M 0.6 10^3/ul (1.6-7.5); SEGMENTED NEUTROPHILS (M) % 33 % (39-77); SMUDGE%M 60 % (0-0)
[2018-02-04] MEDS: KETOROLAC 15 MG INJ IV ×2 (00:02→15:52)
[2018-02-04] MEDS: HYDROmorphONE 0.5 MG/0.5 ML SYG IV ×4 (01:39→18:30)
[2018-02-04] MEDS: ACETAMINOPHEN 1000MG/100ML IV 100 ML IVPB ×4 (01:43→20:38)
[2018-02-04 05:26] LABS: WHITE BLOOD COUNT 2.5 10^3/ul (4.8-10.8)
[2018-02-04 05:26] LABS: ABNORMAL IP MESSAGE 1; HEMATOCRIT 29.7 % (37.0-47.0); HEMOGLOBIN 9.5 g/dl (12.0-16.0); MEAN CORPUSCULAR HEMOGLOBIN 28.4 pg (29.0-33.0); MEAN CORPUSCULAR VOLUME 88.9 fl (82.0-101.0); MEAN PLATELET VOLUME 10.4 fl (7.4-10.4); PLATELET COUNT 151 10^3/UL (140-415); RED BLOOD COUNT 3.34 10^6/ul (4.20-5.40); RED CELL DISTRIBUTION WIDTH 15.4 % (11.5-14.5)
[2018-02-04 05:44] LABS: POSITIVE DIFF @See below
[2018-02-04 05:45] LABS: ADD MAN DIFF? YES
[2018-02-04 05:54] LABS: ALANINE AMINOTRANSFERASE 23 IU/L (13-69); ALBUMIN/GLOBULIN RATIO 1.11; ALKALINE PHOSPHATASE 39 IU/L (42-121); ANION GAP 13 (8-16); ASPARTATE AMINO TRANSFERASE 36 IU/L (15-46); BILIRUBIN,INDIRECT 0.4 mg/dl (0-1.1); BILIRUBIN,TOTAL 0.4 mg/dl (0.2-1.3); BLOOD UREA NITROGEN 28 mg/dl (7-20); CALCIUM 8.6 mg/dl (8.4-10.2); CARBON DIOXIDE 24 mmol/L (21-31); CHLORIDE 106 mmol/L (97-110); CREATININE 1.53 mg/dl (0.44-1.00); GLUCOSE 120 mg/dl (70-220); POTASSIUM 4.6 mmol/L (3.5-5.1); SODIUM 138 mmol/L (135-144); TOTAL PROTEIN 5.7 g/dl (6.1-8.1)
[2018-02-04] MEDS: PANTOPRAZOLE 40 MG INJ IV (06:00)
[2018-02-04] MEDS: ENOXAPARIN 40 MG/0.4 ML SYG SC (06:06)
[2018-02-04] MEDS: D5W-0.45 NACL + KCL 20 MEQ 1,000 ML IV ×3 (07:31→20:39)
[2018-02-04 09:30] LABS: UR BACTERIA FEW /HPF (NONE SEEN); UR RBC 4 /HPF (0-5); UR WBC 6 /HPF (0-5)
[2018-02-04 09:36] LABS: ADD UMIC YES; UR ASCORBIC ACID NEGATIVE (NEGATIVE); UR BILIRUBIN (Dip) NEGATIVE (NEGATIVE); UR BLOOD (Dip) NEGATIVE (NEGATIVE); UR CLARITY CLEAR (CLEAR); UR COLOR YELLOW (YELLOW); UR GLUCOSE (Dip) NEGATIVE (NEGATIVE); UR KETONES (Dip) NEGATIVE (NEGATIVE); UR LEUKOCYTE ESTERASE (Dip) TRACE Leu/ul (NEGATIVE); UR NITRITE (Dip) NEGATIVE (NEGATIVE); UR SPECIFIC GRAVITY (Dip) 1.023 (1.003-1.030); UR TOTAL PROTEIN (Dip) NEGATIVE (NEGATIVE); UR UROBILINOGEN (Dip) NEGATIVE (NEGATIVE)
[2018-02-04 10:06] LABS: BAND NEUTROPHILS #M 1.1 10^3/ul (0.0-0.6); BAND NEUTROPHILS % (M) 44 % (0-4); EOSINOPHILS % (M) 1 % (0-7); GIANT THROMBO% (M) 2 % (0-0); LYMPHOCYTES #M 0.9 10^3/ul (0.8-2.9); LYMPHOCYTES % (M) 37 % (15-51); METAMYELOCYTES %M 3 % (0-0); MONOCYTE #M 0.1 10^3/ul (0.3-0.9); MONOCYTES % (M) 6 % (0-11); MYELOCYTES % (M) 1 % (0-0); PLATELET ESTIMATE NORMAL; SEG NEUT #M 0.2 10^3/ul (1.6-7.5); SEGMENTED NEUTROPHILS (M) % 8 % (39-77); SMUDGE%M 12 % (0-0)
[2018-02-04] MEDS: DIVALPROEX (ER) 500 MG TAB PO ×2 (14:13→21:55)
[2018-02-04] MEDS: traMADol 50 MG TAB PO (23:29)
[2018-02-05] MEDS: SOD CHLORIDE 0.9% 500 ML IV (01:25)
[2018-02-05] MEDS: ACETAMINOPHEN 1000MG/100ML IV 100 ML IVPB ×4 (02:34→20:33)
[2018-02-05 05:19] LABS: WHITE BLOOD COUNT 2.4 10^3/ul (4.8-10.8)
[2018-02-05 05:19] LABS: ABNORMAL IP MESSAGE 1; HEMOGLOBIN 9.2 g/dl (12.0-16.0); MEAN CORPUSCULAR HEMOGLOBIN 29.3 pg (29.0-33.0); MEAN CORPUSCULAR HGB CONC 32.9 g/dl (32.0-37.0); MEAN CORPUSCULAR VOLUME 89.2 fl (82.0-101.0); MEAN PLATELET VOLUME 10.1 fl (7.4-10.4); PLATELET COUNT 173 10^3/UL (140-415); RED BLOOD COUNT 3.14 10^6/ul (4.20-5.40); RED CELL DISTRIBUTION WIDTH 15.9 % (11.5-14.5)
[2018-02-05 05:37] LABS: ADD MAN DIFF? YES; POSITIVE DIFF @See below
[2018-02-05 05:41] LABS: ANION GAP 16 (8-16); BLOOD UREA NITROGEN 40 mg/dl (7-20); CALCIUM 8.1 mg/dl (8.4-10.2); CARBON DIOXIDE 21 mmol/L (21-31); CHLORIDE 102 mmol/L (97-110); CREATININE 2.11 mg/dl (0.44-1.00); GLUCOSE 123 mg/dl (70-220); POTASSIUM 4.8 mmol/L (3.5-5.1); SODIUM 134 mmol/L (135-144)
[2018-02-05] MEDS: ENOXAPARIN 40 MG/0.4 ML SYG SC (06:23)
[2018-02-05] MEDS: PANTOPRAZOLE 40 MG INJ IV (06:25)
[2018-02-05] MEDS: DIVALPROEX (ER) 500 MG TAB PO ×3 (06:26→22:10)
[2018-02-05] MEDS: traMADol 50 MG TAB PO ×3 (06:26→23:36)
[2018-02-05] MEDS: D5W-0.45 NACL + KCL 20 MEQ 1,000 ML IV (08:42)
[2018-02-05 09:25] LABS: BAND NEUTROPHILS #M 1.2 10^3/ul (0.0-0.6); BAND NEUTROPHILS % (M) 51 % (0-4); BASOPHILS % (M) 2 % (0-2); LYMPHOCYTES #M 0.4 10^3/ul (0.8-2.9); LYMPHOCYTES % (M) 18 % (15-51); MONOCYTE #M 0.3 10^3/ul (0.3-0.9); MONOCYTES % (M) 15 % (0-11); PLATELET ESTIMATE NORMAL; REACTIVE LYMPHOCYTES% (M) 4 % (0-0); SEG NEUT #M 0.3 10^3/ul (1.6-7.5); SEGMENTED NEUTROPHILS (M) % 10 % (39-77); SMUDGE%M 3 % (0-0)
[2018-02-05] MEDS: morphine 2 MG INJ IV (09:54)
[2018-02-05] MEDS ORDERED: IOHEXOL 14.3 MG(I)/ML (ADULT) BTL PO (11:30)
[2018-02-05] MEDS: HYDROmorphONE 0.5 MG/0.5 ML SYG IV (11:50)
[2018-02-05] MEDS: IOHEXOL 14.3 MG(I)/ML (ADULT) BTL PO (14:00)
[2018-02-05] MEDS: PIPER-TAZO 2.25 GM (PMX) 50 ML IVPB ×2 (14:03→22:10)
[2018-02-05] MEDS: SOD CHLORIDE 0.9% 1,000 ML IV (15:01)
[2018-02-05 15:53] LABS: ADD UMIC YES; UR ASCORBIC ACID NEGATIVE (NEGATIVE); UR BACTERIA FEW /HPF (NONE SEEN); UR BILIRUBIN (Dip) NEGATIVE (NEGATIVE); UR BLOOD (Dip) NEGATIVE (NEGATIVE); UR CLARITY SLIGHTLY CLOUDY (CLEAR); UR COLOR AMBER (YELLOW); UR GLUCOSE (Dip) NEGATIVE (NEGATIVE); UR KETONES (Dip) NEGATIVE (NEGATIVE); UR LEUKOCYTE ESTERASE (Dip) TRACE Leu/ul (NEGATIVE); UR NITRITE (Dip) NEGATIVE (NEGATIVE); UR RBC 0 /HPF (0-5); UR SPECIFIC GRAVITY (Dip) 1.021 (1.003-1.030); UR SQUAMOUS EPITHELIAL CELL FEW /HPF (FEW); UR TOTAL PROTEIN (Dip) NEGATIVE (NEGATIVE); UR UROBILINOGEN (Dip) NEGATIVE (NEGATIVE); UR WBC 5 /HPF (0-5)
[2018-02-05 16:08] LABS: INR 1.38; PROTIME 17.2 Sec (11.9-14.9); PT RATIO 1.3
[2018-02-05 16:10] LABS: CREATININE,URINE RANDOM 124.56 mg/dl (20-320)
[2018-02-05 16:15] LABS: SODIUM,URINE RANDOM < 13 mmol/L (30-90)
[2018-02-05 16:21] LABS: PARTIAL THROMBOPLASTIN TIME 84.6 Sec (25.0-35.0)
[2018-02-05 16:29] LABS: D-DIMER 3181.31 ng/ml (<460)
[2018-02-05 17:02] LABS: TOTAL IRON BINDING CAPACITY 228 ug/dl (241-421)
[2018-02-05 17:04] LABS: IRON < 10 ug/dl (35-150)
[2018-02-05] MEDS: ONDANSETRON 4 MG INJ IV (23:37)
[2018-02-06] MEDS: SOD CHLORIDE 0.9% 1,000 ML IV ×2 (00:05→05:23)
[2018-02-06] MEDS: ACETAMINOPHEN 1000MG/100ML IV 100 ML IVPB ×3 (02:25→13:17)
[2018-02-06] MEDS: SOD CHLORIDE 0.9% 500 ML IV ×2 (02:50→19:52)
[2018-02-06] MEDS: HYDROmorphONE 0.5 MG/0.5 ML SYG IV ×3 (03:39→17:17)
[2018-02-06 05:13] LABS: WHITE BLOOD COUNT 2.3 10^3/ul (4.8-10.8)
[2018-02-06 05:13] LABS: ABNORMAL IP MESSAGE 1; HEMATOCRIT 27.7 % (37.0-47.0); HEMOGLOBIN 8.9 g/dl (12.0-16.0); MEAN CORPUSCULAR HEMOGLOBIN 28.6 pg (29.0-33.0); MEAN CORPUSCULAR HGB CONC 32.1 g/dl (32.0-37.0); MEAN CORPUSCULAR VOLUME 89.1 fl (82.0-101.0); PLATELET COUNT 160 10^3/UL (140-415); RED BLOOD COUNT 3.11 10^6/ul (4.20-5.40); RED CELL DISTRIBUTION WIDTH 16.4 % (11.5-14.5)
[2018-02-06 05:22] LABS: ADD MAN DIFF? YES; POSITIVE DIFF @See below
[2018-02-06 05:30] LABS: LACTIC ACID 1.4 mmol/L (0.5-2.0); PHOSPHORUS 4.9 mg/dl (2.5-4.9)
[2018-02-06 05:31] LABS: ALANINE AMINOTRANSFERASE 25 IU/L (13-69); ALBUMIN 2.3 g/dl (3.3-4.9); ALBUMIN/GLOBULIN RATIO 0.88; ALKALINE PHOSPHATASE 54 IU/L (42-121); ANION GAP 14 (8-16); ASPARTATE AMINO TRANSFERASE 25 IU/L (15-46); BILIRUBIN,INDIRECT 0.3 mg/dl (0-1.1); BILIRUBIN,TOTAL 0.3 mg/dl (0.2-1.3); BLOOD UREA NITROGEN 45 mg/dl (7-20); CALCIUM 8.1 mg/dl (8.4-10.2); CARBON DIOXIDE 20 mmol/L (21-31); CHLORIDE 104 mmol/L (97-110); CREATININE 2.93 mg/dl (0.44-1.00); GLUCOSE 75 mg/dl (70-220); POTASSIUM 5.1 mmol/L (3.5-5.1); SODIUM 133 mmol/L (135-144); TOTAL PROTEIN 4.9 g/dl (6.1-8.1)
[2018-02-06 05:39] LABS: MAGNESIUM 0.9 mg/dl (1.7-2.5)
[2018-02-06] MEDS: DIVALPROEX (ER) 500 MG TAB PO ×3 (06:00→13:17)
[2018-02-06] MEDS: PANTOPRAZOLE 40 MG INJ IV (06:18)
[2018-02-06] MEDS: PIPER-TAZO 2.25 GM (PMX) 50 ML IVPB ×2 (06:19→13:25)
[2018-02-06] MEDS: MAG SULFATE 2GM IN 50 ML IVPB ×2 (07:34→19:52)
[2018-02-06] MEDS: ENOXAPARIN 30 MG/0.3 ML SYG SC (08:41)
[2018-02-06] MEDS: morphine LIQ (10 MG/5 ML) CUP PO (10:27)
[2018-02-06 10:29] LABS: BAND NEUTROPHILS #M 0.7 10^3/ul (0.0-0.6); BAND NEUTROPHILS % (M) 34 % (0-4); EOSINOPHILS % (M) 2 % (0-7); ERYTHROBLAST% (NRBC) (M) 2 % (0-0); GIANT THROMBO% (M) 7 % (0-0); LYMPHOCYTES #M 0.5 10^3/ul (0.8-2.9); LYMPHOCYTES % (M) 24 % (15-51); MONOCYTE #M 0.2 10^3/ul (0.3-0.9); MONOCYTES % (M) 9 % (0-11); PLATELET ESTIMATE NORMAL; POIKILOCYTOSIS 3+ (0-0); PROMYELOCYTES % (M) 2 % (0-0); REACTIVE LYMPHOCYTES% (M) 2 % (0-0); SEG NEUT #M 0.7 10^3/ul (1.6-7.5); SEGMENTED NEUTROPHILS (M) % 29 % (39-77); SMUDGE%M 15 % (0-0)
[2018-02-06] MEDS: DEXTROSE 5%-0.9% NACL 1,000 ML IV ×2 (10:30→19:00)
[2018-02-06] MEDS: traMADol 50 MG TAB PO (14:36)
[2018-02-06] MEDS: SOD FERRIC GLUC COMPLX 125 MG in SOD CHLORIDE 0.9% 100 ML IVPB (17:30)
[2018-02-06] MEDS: HYDROmorphONE 1 MG/ML SYG IV (18:49)
[2018-02-06] MEDS ORDERED: ROCURONIUM 50 MG INJ ×2 (20:00→20:46)
[2018-02-06] MEDS ORDERED: MIDAZOLAM 1 MG/ML 2 ML INJ (20:46)
[2018-02-06] MEDS ORDERED: DEXAMETHASONE 4 MG/ML 1 ML INJ (20:46)
[2018-02-06] MEDS ORDERED: CEFAZOLIN 1 GM INJ (20:46)
[2018-02-06] MEDS ORDERED: ONDANSETRON 4 MG INJ (20:46)
[2018-02-06] MEDS ORDERED: GLYCOPYRROLATE 0.4 MG INJ (20:46)
[2018-02-06] MEDS ORDERED: NEOSTIGMINE 3 MG/3 ML SYRINGE (20:46)
[2018-02-06] MEDS ORDERED: PROPOFOL 20 ML (20:46)
[2018-02-06] MEDS ORDERED: NORepinephrine 4 MG INJ (20:57)
[2018-02-06] MEDS ORDERED: PHENYLephrine (100 MCG/ML) 5ML SYG (21:10)
[2018-02-06] MEDS: BUPIVACAINE 0.5%/EPI (SDV) 30 ML INJ (22:40)
[2018-02-06] MEDS: LIDOCAINE 1% (MPF) 30 ML INJ (22:41)
[2018-02-06] MEDS: PIPER-TAZO 3.375 GM IV (PMX) 100 ML (22:42)
[2018-02-06] MEDS ORDERED: FENTAnyl 50 MCG/ML VIAL (23:44)
[2018-02-07] MEDS ORDERED: FENTAnyl 50 MCG/ML VIAL (00:29)
[2018-02-07] MEDS ORDERED: HYDROmorphONE 0.5 MG/0.5 ML SYG IV (00:30)
[2018-02-07] MEDS: ACETAMINOPHEN 1000MG/100ML IV 100 ML IVPB ×2 (02:00→02:29)
[2018-02-07 02:04] LABS: WHITE BLOOD COUNT 2.1 10^3/ul (4.8-10.8)
[2018-02-07 02:04] LABS: ABNORMAL IP MESSAGE 1; HEMATOCRIT 28.7 % (37.0-47.0); HEMOGLOBIN 9.3 g/dl (12.0-16.0); MEAN CORPUSCULAR HEMOGLOBIN 29.1 pg (29.0-33.0); MEAN CORPUSCULAR HGB CONC 32.4 g/dl (32.0-37.0); MEAN CORPUSCULAR VOLUME 89.7 fl (82.0-101.0); MEAN PLATELET VOLUME 9.3 fl (7.4-10.4); PLATELET COUNT 133 10^3/UL (140-415); RED CELL DISTRIBUTION WIDTH 16.5 % (11.5-14.5)
[2018-02-07 02:05] LABS: ADD MAN DIFF? YES; POSITIVE DIFF @See below
[2018-02-07 02:28] LABS: LACTIC ACID 1.3 mmol/L (0.5-2.0)
[2018-02-07 02:29] LABS: ALANINE AMINOTRANSFERASE 24 IU/L (13-69); ALKALINE PHOSPHATASE 56 IU/L (42-121); ANION GAP 15 (8-16); ASPARTATE AMINO TRANSFERASE 32 IU/L (15-46); BILIRUBIN,INDIRECT 0.2 mg/dl (0-1.1); BILIRUBIN,TOTAL 0.2 mg/dl (0.2-1.3); BLOOD UREA NITROGEN 46 mg/dl (7-20); CALCIUM 7.8 mg/dl (8.4-10.2); CARBON DIOXIDE 16 mmol/L (21-31); CHLORIDE 111 mmol/L (97-110); CREATININE 2.44 mg/dl (0.44-1.00); GLUCOSE 82 mg/dl (70-220); POTASSIUM 4.6 mmol/L (3.5-5.1); SODIUM 137 mmol/L (135-144); TOTAL PROTEIN 4.5 g/dl (6.1-8.1)
[2018-02-07] MEDS: PIPER-TAZO 2.25 GM (PMX) 50 ML IVPB ×4 (05:00→21:20)
[2018-02-07] MEDS: PANTOPRAZOLE 40 MG INJ IV (05:41)
[2018-02-07] MEDS: DIVALPROEX (ER) 500 MG TAB PO ×4 (05:41→22:00)
[2018-02-07] MEDS: PROPOFOL 100 ML IV ×2 (07:00→12:30)
[2018-02-07 07:28] LABS: Arterial Base Excess -10.2 mmol/L (-3.0-3); Arterial Blood Gas Oxygen Sat 97.5 mmHG (95.0-100.0); Arterial COHb 0.5 % (0.0-3.0); Arterial Fraction of Oxyhgb 96.9 % (93.0-99.0); Arterial HCO3 15.9 mmol/L (22.0-26.0); Arterial MetHb 0.1 % (0.0-1.5); Arterial pCO2 35.9 mmhg (35-45); Blood Gas PS 5; MODE VENT - AC; Site A-Line
[2018-02-07] MEDS: ENOXAPARIN 30 MG/0.3 ML SYG SC (08:14)
[2018-02-07 08:21] LABS: WHITE BLOOD COUNT 2.4 10^3/ul (4.8-10.8)
[2018-02-07 08:21] LABS: ABNORMAL IP MESSAGE 1; HEMATOCRIT 28.4 % (37.0-47.0); HEMOGLOBIN 9.2 g/dl (12.0-16.0); MEAN CORPUSCULAR HEMOGLOBIN 28.4 pg (29.0-33.0); MEAN CORPUSCULAR HGB CONC 32.4 g/dl (32.0-37.0); MEAN CORPUSCULAR VOLUME 87.7 fl (82.0-101.0); MEAN PLATELET VOLUME 10.3 fl (7.4-10.4); NUCLEATED RED BLOOD CELLS% 2.1 /100WBC (0.0-0.0); PLATELET COUNT 168 10^3/UL (140-415); RED BLOOD COUNT 3.24 10^6/ul (4.20-5.40); RED CELL DISTRIBUTION WIDTH 16.5 % (11.5-14.5)
[2018-02-07] MEDS ORDERED: NA BICARBONATE 8.4% 50 ML SYG (08:22)
[2018-02-07] MEDS: NA BICARBONATE 8.4% 50 ML SYG IV (08:25)
[2018-02-07] MEDS: NORepinephrine 8MG/250 ML (PMX 250 ML IV (08:30)
[2018-02-07 08:31] LABS: ADD MAN DIFF? YES; POSITIVE DIFF @See below
[2018-02-07] MEDS: SOD CHLORIDE 0.9% 500 ML IV (08:31)
[2018-02-07 08:42] LABS: LACTIC ACID 1.4 mmol/L (0.5-2.0); MAGNESIUM 2.1 mg/dl (1.7-2.5)
[2018-02-07 08:43] LABS: ALANINE AMINOTRANSFERASE 14 IU/L (13-69); ALBUMIN 2.1 g/dl (3.3-4.9); ALKALINE PHOSPHATASE 59 IU/L (42-121); ANION GAP 11 (8-16); ASPARTATE AMINO TRANSFERASE 31 IU/L (15-46); BILIRUBIN,INDIRECT 0.1 mg/dl (0-1.1); BILIRUBIN,TOTAL 0.1 mg/dl (0.2-1.3); BLOOD UREA NITROGEN 47 mg/dl (7-20); CALCIUM 8.2 mg/dl (8.4-10.2); CARBON DIOXIDE 17 mmol/L (21-31); CHLORIDE 111 mmol/L (97-110); GLUCOSE 67 mg/dl (70-220); POTASSIUM 4.5 mmol/L (3.5-5.1); SODIUM 134 mmol/L (135-144); TOTAL PROTEIN 4.7 g/dl (6.1-8.1)
[2018-02-07 08:50] LABS: MAGNESIUM 2.1 mg/dl (1.7-2.5)
[2018-02-07 08:54] LABS: CREATININE 2.36 mg/dl (0.44-1.00)
[2018-02-07] MEDS: AZTREONAM IV ×2 (09:01→21:20)
[2018-02-07] MEDS: SOD CHLORIDE 0.9% IV ×2 (09:01→21:20)
[2018-02-07] MEDS ORDERED: DEXTROSE 50% 50 ML SYRINGE (09:05)
[2018-02-07] MEDS: DEXTROSE 50% 50 ML SYRINGE IV (09:26)
[2018-02-07] MEDS: SODIUM BICARBONATE (IV ADD) 150 MEQ in DEXTROSE 5% 1,000 ML IV ×2 (09:27→21:57)
[2018-02-07 09:51] LABS: ANISOCYTOSIS 1+ (0-0); BAND NEUTROPHILS #M 0.3 10^3/ul (0.0-0.6); BAND NEUTROPHILS % (M) 14 % (0-4); BURR CELLS 1+ (0-0); ERYTHROBLAST% (NRBC) (M) 12 % (0-0); GIANT THROMBO% (M) 16 % (0-0); LYMPHOCYTES #M 0.6 10^3/ul (0.8-2.9); LYMPHOCYTES % (M) 25 % (15-51); MONOCYTE #M 0.2 10^3/ul (0.3-0.9); MONOCYTES % (M) 11 % (0-11); PLATELET ESTIMATE NORMAL; POIKILOCYTOSIS 1+ (0-0); REACTIVE LYMPHOCYTES% (M) 2 % (0-0); SEG NEUT #M 1.2 10^3/ul (1.6-7.5); SEGMENTED NEUTROPHILS (M) % 48 % (39-77); SMUDGE%M 62 % (0-0)
[2018-02-07] MEDS: MAG SULFATE 2GM IN 50 ML IVPB (10:40)
[2018-02-07] MEDS: HYDROmorphONE 1 MG/ML SYG IV ×4 (12:10→20:30)
[2018-02-07 13:26] LABS: AADO2 Arterial 75.8 mmHg (7.0-24.0); Arterial Base Excess -6.1 mmol/L (-3.0-3); Arterial Blood Gas Oxygen Sat 96.6 mmHG (95.0-100.0); Arterial COHb 0.5 % (0.0-3.0); Arterial Fraction of Oxyhgb 95.8 % (93.0-99.0); Arterial HCO3 19.2 mmol/L (22.0-26.0); Arterial MetHb 0.3 % (0.0-1.5); Arterial Total Hemglobin 9.3 g/dl (12.0-18.0); Arterial pCO2 37.2 mmhg (35-45); MODE VENT - AC; Site A-Line
[2018-02-07] MEDS: SOD CHLORIDE 0.9% 250 ML IV ×2 (14:05→15:59)
[2018-02-07] MEDS: FENTAnyl (DRIP) 1000 mcg/100mL 100 ML IV (15:56)
[2018-02-07] MEDS: LACTATED RINGER'S 500 ML IV (16:48)
[2018-02-07] MEDS: SOD FERRIC GLUC COMPLX 125 MG in SOD CHLORIDE 0.9% 100 ML IVPB (18:18)
[2018-02-08] MEDS: PROPOFOL 100 ML IV ×2 (00:30→10:21)
[2018-02-08] MEDS: HYDROmorphONE 1 MG/ML SYG IV ×2 (01:26→04:47)
[2018-02-08] MEDS: FENTAnyl (DRIP) 1000 mcg/100mL 100 ML IV ×3 (02:28→22:40)
[2018-02-08] MEDS: PIPER-TAZO 2.25 GM (PMX) 50 ML IVPB ×3 (05:22→21:46)
[2018-02-08] MEDS: PANTOPRAZOLE 40 MG INJ IV (05:22)
[2018-02-08] MEDS: DIVALPROEX (ER) 500 MG TAB PO ×2 (05:23→14:00)
[2018-02-08 05:36] LABS: WHITE BLOOD COUNT 6.7 10^3/ul (4.8-10.8)
[2018-02-08 05:36] LABS: ABNORMAL IP MESSAGE 1; HEMOGLOBIN 8.3 g/dl (12.0-16.0); MEAN CORPUSCULAR HEMOGLOBIN 28.6 pg (29.0-33.0); MEAN CORPUSCULAR HGB CONC 33.2 g/dl (32.0-37.0); MEAN CORPUSCULAR VOLUME 86.2 fl (82.0-101.0); MEAN PLATELET VOLUME 10.8 fl (7.4-10.4); PLATELET COUNT 153 10^3/UL (140-415); RED CELL DISTRIBUTION WIDTH 16.5 % (11.5-14.5)
[2018-02-08 05:42] LABS: ADD MAN DIFF? YES; POSITIVE DIFF @See below
[2018-02-08 06:04] LABS: ALANINE AMINOTRANSFERASE 17 IU/L (13-69); ALBUMIN 1.9 g/dl (3.3-4.9); ALBUMIN/GLOBULIN RATIO 0.79; ALKALINE PHOSPHATASE 56 IU/L (42-121); ANION GAP 10 (8-16); ASPARTATE AMINO TRANSFERASE 41 IU/L (15-46); BILIRUBIN,INDIRECT 0.1 mg/dl (0-1.1); BILIRUBIN,TOTAL 0.1 mg/dl (0.2-1.3); BLOOD UREA NITROGEN 47 mg/dl (7-20); CALCIUM 7.8 mg/dl (8.4-10.2); CARBON DIOXIDE 22 mmol/L (21-31); CHLORIDE 109 mmol/L (97-110); CREATININE 2.31 mg/dl (0.44-1.00); GLUCOSE 113 mg/dl (70-220); MAGNESIUM 2.3 mg/dl (1.7-2.5); PHOSPHORUS 4.3 mg/dl (2.5-4.9); POTASSIUM 3.9 mmol/L (3.5-5.1); SODIUM 137 mmol/L (135-144); TOTAL PROTEIN 4.3 g/dl (6.1-8.1)
[2018-02-08 06:59] LABS: BAND NEUTROPHILS #M 2.4 10^3/ul (0.0-0.6); BAND NEUTROPHILS % (M) 36 % (0-4); ERYTHROBLAST% (NRBC) (M) 8 % (0-0); LYMPHOCYTES #M 0.7 10^3/ul (0.8-2.9); LYMPHOCYTES % (M) 11 % (15-51); METAMYELOCYTES #M 0.6 10^3/ul (0.0-0.0); METAMYELOCYTES %M 9 % (0-0); MONOCYTE #M 0.9 10^3/ul (0.3-0.9); MONOCYTES % (M) 14 % (0-11); PLATELET ESTIMATE NORMAL; REACTIVE LYMPHOCYTES #M 0.2 10^3/ul (0.0-0.0); REACTIVE LYMPHOCYTES% (M) 4 % (0-0); SEG NEUT #M 1.9 10^3/ul (1.6-7.5); SEGMENTED NEUTROPHILS (M) % 26 % (39-77); SMUDGE%M 16 % (0-0)
[2018-02-08] MEDS: SODIUM BICARBONATE (IV ADD) 150 MEQ in DEXTROSE 5% 1,000 ML IV (07:34)
[2018-02-08] MEDS: morphine 2 MG INJ IV (09:16)
[2018-02-08] MEDS: AZTREONAM IV ×2 (09:22→21:46)
[2018-02-08] MEDS: SOD CHLORIDE 0.9% IV ×2 (09:22→21:46)
[2018-02-08 10:10] LABS: AADO2 Arterial 83.3 mmHg (7.0-24.0); Arterial Base Excess -1.8 mmol/L (-3.0-3); Arterial Blood Gas Oxygen Sat 95.4 mmHG (95.0-100.0); Arterial COHb 0.5 % (0.0-3.0); Arterial Fraction of Oxyhgb 94.8 % (93.0-99.0); Arterial HCO3 23.3 mmol/L (22.0-26.0); Arterial MetHb 0.1 % (0.0-1.5); Arterial Total Hemglobin 8.7 g/dl (12.0-18.0); Arterial pCO2 41.1 mmhg (35-45); MODE VENT - AC; Site A-Line
[2018-02-08] MEDS: ACETAMINOPHEN 1000MG/100ML IV 100 ML IVPB ×3 (11:09→23:16)
[2018-02-08] MEDS: DEXTROSE 5%-0.9% NACL 1,000 ML IV ×3 (11:09→21:47)
[2018-02-08] MEDS: morphine 4 MG/ML VIAL IV (11:22)
[2018-02-08] MEDS: FLUCONAZOLE 200 MG (PMX) 100 ML IVPB (11:31)
[2018-02-08] MEDS: MIDAZOLAM (DRIP) 50 mg/50 mL 50 ML IV (13:12)
[2018-02-08] MEDS ORDERED: ALBUMIN HUMAN 25% 100 ML (14:39)
[2018-02-08] MEDS: ALBUMIN HUMAN 25% 100 ML IV (15:20)
[2018-02-08 16:07] LABS: CREATININE,URINE RANDOM 101.27 mg/dl (20-320)
[2018-02-08 16:17] LABS: SODIUM,URINE RANDOM < 13 mmol/L (30-90)
[2018-02-08] MEDS: SOD FERRIC GLUC COMPLX 125 MG in SOD CHLORIDE 0.9% 100 ML IVPB (18:11)
[2018-02-08] MEDS: VALPROATE INJ 500 MG in SOD CHLORIDE 0.9% 50 ML IVPB (21:47)
[2018-02-09] MEDS: PROPOFOL 100 ML IV ×3 (00:13→20:03)
[2018-02-09] MEDS: ALBUMIN HUMAN 25% 100 ML IV ×2 (00:13→08:23)
[2018-02-09 04:54] LABS: WHITE BLOOD COUNT 7.7 10^3/ul (4.8-10.8)
[2018-02-09 04:54] LABS: ABNORMAL IP MESSAGE 1; HEMATOCRIT 19.5 % (37.0-47.0); MEAN CORPUSCULAR HEMOGLOBIN 28.5 pg (29.0-33.0); MEAN CORPUSCULAR HGB CONC 33.3 g/dl (32.0-37.0); MEAN CORPUSCULAR VOLUME 85.5 fl (82.0-101.0); MEAN PLATELET VOLUME 10.4 fl (7.4-10.4); PLATELET COUNT 102 10^3/UL (140-415); RED BLOOD COUNT 2.28 10^6/ul (4.20-5.40); RED CELL DISTRIBUTION WIDTH 16.5 % (11.5-14.5)
[2018-02-09 05:28] LABS: POSITIVE DIFF @See below
[2018-02-09 05:32] LABS: HEMOGLOBIN 6.5 g/dl (12.0-16.0)
[2018-02-09 05:33] LABS: ADD MAN DIFF? YES; ALANINE AMINOTRANSFERASE 19 IU/L (13-69); ALBUMIN 2.1 g/dl (3.3-4.9); ALKALINE PHOSPHATASE 48 IU/L (42-121); ANION GAP 9 (8-16); ASPARTATE AMINO TRANSFERASE 34 IU/L (15-46); BILIRUBIN,INDIRECT 0.3 mg/dl (0-1.1); BILIRUBIN,TOTAL 0.3 mg/dl (0.2-1.3); BLOOD UREA NITROGEN 43 mg/dl (7-20); CALCIUM 8.1 mg/dl (8.4-10.2); CARBON DIOXIDE 26 mmol/L (21-31); CHLORIDE 109 mmol/L (97-110); CREATININE 1.47 mg/dl (0.44-1.00); GLUCOSE 113 mg/dl (70-220); MAGNESIUM 2.3 mg/dl (1.7-2.5); POTASSIUM 3.2 mmol/L (3.5-5.1); SODIUM 141 mmol/L (135-144); TOTAL PROTEIN 4.2 g/dl (6.1-8.1)
[2018-02-09] MEDS: PIPER-TAZO 2.25 GM (PMX) 50 ML IVPB ×3 (05:35→21:39)
[2018-02-09] MEDS: PANTOPRAZOLE 40 MG INJ IV (05:35)
[2018-02-09] MEDS: ACETAMINOPHEN 1000MG/100ML IV 100 ML IVPB ×4 (05:35→23:11)
[2018-02-09] MEDS: MIDAZOLAM (DRIP) 50 mg/50 mL 50 ML IV (05:40)
[2018-02-09] MEDS: VALPROATE INJ 500 MG in SOD CHLORIDE 0.9% 50 ML IVPB ×3 (05:42→21:38)
[2018-02-09 06:16] LABS: WHITE BLOOD COUNT 8.2 10^3/ul (4.8-10.8)
[2018-02-09 06:16] LABS: ABNORMAL IP MESSAGE 1; HEMATOCRIT 20.1 % (37.0-47.0); MEAN CORPUSCULAR HEMOGLOBIN 29.5 pg (29.0-33.0); MEAN CORPUSCULAR HGB CONC 34.3 g/dl (32.0-37.0); MEAN CORPUSCULAR VOLUME 85.9 fl (82.0-101.0); MEAN PLATELET VOLUME 9.9 fl (7.4-10.4); PLATELET COUNT 103 10^3/UL (140-415); RED BLOOD COUNT 2.34 10^6/ul (4.20-5.40); RED CELL DISTRIBUTION WIDTH 16.2 % (11.5-14.5)
[2018-02-09 06:25] LABS: INR 2.19; PROTIME 24.9 Sec (11.9-14.9); PT RATIO 1.9
[2018-02-09 06:36] LABS: POSITIVE DIFF @See below
[2018-02-09 06:38] LABS: ADD MAN DIFF? YES; HEMOGLOBIN 6.9 g/dl (12.0-16.0)
[2018-02-09 06:44] LABS: PARTIAL THROMBOPLASTIN TIME 80.2 Sec (25.0-35.0)
[2018-02-09 08:16] LABS: AADO2 Arterial 51.4 mmHg (7.0-24.0); Arterial Blood Gas Oxygen Sat 97.4 mmHG (95.0-100.0); Arterial COHb 0.8 % (0.0-3.0); Arterial Fraction of Oxyhgb 96.3 % (93.0-99.0); Arterial HCO3 22.2 mmol/L (22.0-26.0); Arterial MetHb 0.3 % (0.0-1.5); Arterial Total Hemglobin 8.3 g/dl (12.0-18.0); Arterial pCO2 35.4 mmhg (35-45); MODE VENT - AC; Site A-Line
[2018-02-09] MEDS: POTASSIUM CHLORIDE 50 ML IVPB (08:22)
[2018-02-09] MEDS: SOD CHLORIDE 0.9% 250 ML IV* (08:30)
[2018-02-09] MEDS: SOD CHLORIDE 0.9% IV ×2 (09:44→21:39)
[2018-02-09] MEDS: AZTREONAM IV ×2 (09:44→21:39)
[2018-02-09 09:52] LABS: ANISOCYTOSIS 1+ (0-0); BAND NEUTROPHILS #M 1.6 10^3/ul (0.0-0.6); BAND NEUTROPHILS % (M) 20 % (0-4); BASOPHIL #M 0.3 10^3/ul (0.0-0.0); BASOPHILS % (M) 4 % (0-2); EOSINOPHILS % (M) 3 % (0-7); ERYTHROBLAST% (NRBC) (M) 1 % (0-0); GIANT THROMBO% (M) 3 % (0-0); LYMPHOCYTES #M 1.1 10^3/ul (0.8-2.9); LYMPHOCYTES % (M) 14 % (15-51); MONOCYTE #M 0.4 10^3/ul (0.3-0.9); MONOCYTES % (M) 5 % (0-11); PLATELET ESTIMATE DECREASED; REACTIVE LYMPHOCYTES% (M) 1 % (0-0); SEG NEUT #M 4.5 10^3/ul (1.6-7.5); SEGMENTED NEUTROPHILS (M) % 53 % (39-77); SMUDGE%M 159 % (0-0); SPHEROCYTES 1+ (0-0)
[2018-02-09 09:55] LABS: BAND NEUTROPHILS #M 1.6 10^3/ul (0.0-0.6); BAND NEUTROPHILS % (M) 22 % (0-4); BASOPHIL #M 0.2 10^3/ul (0.0-0.0); BASOPHILS % (M) 3 % (0-2); EOSINOPHILS % (M) 3 % (0-7); ERYTHROBLAST% (NRBC) (M) 1 % (0-0); HYPOCHROMASIA 1+ (0-0); LYMPHOCYTES #M 0.5 10^3/ul (0.8-2.9); LYMPHOCYTES % (M) 7 % (15-51); METAMYELOCYTES %M 1 % (0-0); MONOCYTE #M 0.6 10^3/ul (0.3-0.9); MONOCYTES % (M) 8 % (0-11); MYELOCYTES % (M) 1 % (0-0); PLATELET ESTIMATE DECREASED; REACTIVE LYMPHOCYTES #M 0.1 10^3/ul (0.0-0.0); REACTIVE LYMPHOCYTES% (M) 2 % (0-0); SEG NEUT #M 4.2 10^3/ul (1.6-7.5); SEGMENTED NEUTROPHILS (M) % 53 % (39-77); SMUDGE%M 30 % (0-0); TARGET CELLS 1+ (0-0)
[2018-02-09 11:28] LABS: LACTIC ACID 2.7 mmol/L (0.5-2.0)
[2018-02-09 11:50] LABS: IMMEDIATE SPIN CROSSMATCH 1 4
[2018-02-09] MEDS: POTASSIUM CHLORIDE 100 ML IVPB (12:21)
[2018-02-09] MEDS: FLUCONAZOLE 200 MG (PMX) 100 ML IVPB (13:15)
[2018-02-09] MEDS: SOD FERRIC GLUC COMPLX 125 MG in SOD CHLORIDE 0.9% 100 ML IVPB (17:31)
[2018-02-09] MEDS: DEXTROSE 5%-0.9% NACL 1,000 ML IV (17:32)
[2018-02-09] MEDS: FENTAnyl (DRIP) 1000 mcg/100mL 100 ML IV (17:34)
[2018-02-09] MEDS: EPOETIN 10000 UNITS/ML (NON ESRD/NON ONCOLOGY) SC (18:39)
[2018-02-10] MEDS: DEXTROSE 5%-0.9% NACL 1,000 ML IV ×3 (02:47→17:35)
[2018-02-10] MEDS: FENTAnyl (DRIP) 1000 mcg/100mL 100 ML IV (03:29)
[2018-02-10 04:54] LABS: ABNORMAL IP MESSAGE 1; HEMATOCRIT 24.7 % (37.0-47.0); HEMOGLOBIN 8.5 g/dl (12.0-16.0); MEAN CORPUSCULAR HEMOGLOBIN 28.2 pg (29.0-33.0); MEAN CORPUSCULAR HGB CONC 34.4 g/dl (32.0-37.0); MEAN CORPUSCULAR VOLUME 82.1 fl (82.0-101.0); MEAN PLATELET VOLUME 10.1 fl (7.4-10.4); NUCLEATED RED BLOOD CELLS% 0.2 /100WBC (0.0-0.0); PLATELET COUNT 87 10^3/UL (140-415); RED BLOOD COUNT 3.01 10^6/ul (4.20-5.40); RED CELL DISTRIBUTION WIDTH 17.2 % (11.5-14.5); RETICULOCYTE COUNT # 0.011 X10^6 (0.020-0.110); RETICULOCYTE COUNT % 0.4 % (0.5-1.5); RETICULOCYTE RBC 3.01
[2018-02-10 04:54] LABS: WHITE BLOOD COUNT 9.2 10^3/ul (4.8-10.8)
[2018-02-10 05:10] LABS: ADD MAN DIFF? YES
[2018-02-10 05:14] LABS: ALANINE AMINOTRANSFERASE 20 IU/L (13-69); ALBUMIN 2.3 g/dl (3.3-4.9); ALBUMIN/GLOBULIN RATIO 0.92; ALKALINE PHOSPHATASE 46 IU/L (42-121); ANION GAP 15 (8-16); ASPARTATE AMINO TRANSFERASE 24 IU/L (15-46); BILIRUBIN,INDIRECT 0.5 mg/dl (0-1.1); BILIRUBIN,TOTAL 0.5 mg/dl (0.2-1.3); BLOOD UREA NITROGEN 45 mg/dl (7-20); CALCIUM 8.4 mg/dl (8.4-10.2); CARBON DIOXIDE 20 mmol/L (21-31); CHLORIDE 111 mmol/L (97-110); CREATININE 1.35 mg/dl (0.44-1.00); GLUCOSE 89 mg/dl (70-220); POTASSIUM 3.8 mmol/L (3.5-5.1); SODIUM 142 mmol/L (135-144); TOTAL PROTEIN 4.8 g/dl (6.1-8.1)
[2018-02-10 05:15] LABS: INR 2.29; PROTIME 25.8 Sec (11.9-14.9)
[2018-02-10 05:15] LABS: MAGNESIUM 2.3 mg/dl (1.7-2.5)
[2018-02-10] MEDS: PANTOPRAZOLE 40 MG INJ IV (05:16)
[2018-02-10] MEDS: PIPER-TAZO 2.25 GM (PMX) 50 ML IVPB ×3 (05:17→21:48)
[2018-02-10] MEDS: VALPROATE INJ 500 MG in SOD CHLORIDE 0.9% 50 ML IVPB ×3 (05:17→21:48)
[2018-02-10] MEDS: ACETAMINOPHEN 1000MG/100ML IV 100 ML IVPB ×4 (05:17→23:04)
[2018-02-10 05:18] LABS: VALPROATE 53 ug/ml (50-100)
[2018-02-10 06:03] LABS: PARTIAL THROMBOPLASTIN TIME 72.2 Sec (25.0-35.0)
[2018-02-10 08:37] LABS: AADO2 Arterial 50.3 mmHg (7.0-24.0); Allen Test ACCEPTAB; Arterial Base Excess -3.9 mmol/L (-3.0-3); Arterial Blood Gas Oxygen Sat 97.6 mmHG (95.0-100.0); Arterial COHb 0.6 % (0.0-3.0); Arterial Fraction of Oxyhgb 96.7 % (93.0-99.0); Arterial HCO3 20.3 mmol/L (22.0-26.0); Arterial MetHb 0.3 % (0.0-1.5); Arterial Total Hemglobin 9.3 g/dl (12.0-18.0); Arterial pCO2 33.5 mmhg (35-45); MODE VENT - AC; Site Right Radial
[2018-02-10] MEDS: SOD CHLORIDE 0.9% IV ×2 (09:16→21:19)
[2018-02-10] MEDS: AZTREONAM IV ×2 (09:16→21:19)
[2018-02-10 09:58] LABS: ANISOCYTOSIS 1+ (0-0); BAND NEUTROPHILS #M 1.1 10^3/ul (0.0-0.6); BAND NEUTROPHILS % (M) 12 % (0-4); BURR CELLS 1+ (0-0); EOSINOPHILS % (M) 1 % (0-7); ERYTHROBLAST% (NRBC) (M) 1 % (0-0); LYMPHOCYTES #M 0.8 10^3/ul (0.8-2.9); LYMPHOCYTES % (M) 9 % (15-51); METAMYELOCYTES %M 1 % (0-0); MONOCYTE #M 0.5 10^3/ul (0.3-0.9); MONOCYTES % (M) 6 % (0-11); MYELOCYTES % (M) 1 % (0-0); PLASMAC%(M) 1 % (0); PLATELET ESTIMATE DECREASED; POIKILOCYTOSIS 1+ (0-0); POLYCHROMASIA 1+ (0-0); SEG NEUT #M 6.4 10^3/ul (1.6-7.5); SEGMENTED NEUTROPHILS (M) % 69 % (39-77); SMUDGE%M 15 % (0-0); TARGET CELLS 1+ (0-0)
[2018-02-10 12:27] LABS: 50/50 PTT 1 HOUR 40.5 Sec; 50/50 PTT IMMED 39.7 Sec
[2018-02-10 12:30] LABS: PARTIAL THROMBOPLASTIN TIME 72.2 Sec (25.0-35.0)
[2018-02-10] MEDS: PROPOFOL 100 ML IV (12:30)
[2018-02-10] MEDS: FLUCONAZOLE 200 MG (PMX) 100 ML IVPB (12:44)
[2018-02-10 15:04] LABS: LACTIC ACID 2.2 mmol/L (0.5-2.0)
[2018-02-10] MEDS: SOD FERRIC GLUC COMPLX 125 MG in SOD CHLORIDE 0.9% 100 ML IVPB (17:34)
[2018-02-10] MEDS: morphine 4 MG/ML VIAL IV (19:27)
[2018-02-11] MEDS: PROPOFOL 100 ML IV ×2 (00:30→11:40)
[2018-02-11 05:19] LABS: ABNORMAL IP MESSAGE 1; HEMATOCRIT 26.2 % (37.0-47.0); HEMOGLOBIN 8.7 g/dl (12.0-16.0); MEAN CORPUSCULAR HEMOGLOBIN 28.1 pg (29.0-33.0); MEAN CORPUSCULAR HGB CONC 33.2 g/dl (32.0-37.0); MEAN CORPUSCULAR VOLUME 84.5 fl (82.0-101.0); NUCLEATED RED BLOOD CELLS% 0.4 /100WBC (0.0-0.0); PLATELET COUNT 86 10^3/UL (140-415); RED CELL DISTRIBUTION WIDTH 18.2 % (11.5-14.5)
[2018-02-11 05:19] LABS: WHITE BLOOD COUNT 7.8 10^3/ul (4.8-10.8)
[2018-02-11 05:20] LABS: POSITIVE DIFF @See below
[2018-02-11 05:21] LABS: ADD MAN DIFF? YES
[2018-02-11 06:14] LABS: ALANINE AMINOTRANSFERASE 17 IU/L (13-69); ALBUMIN 2.2 g/dl (3.3-4.9); ALBUMIN/GLOBULIN RATIO 0.84; ALKALINE PHOSPHATASE 60 IU/L (42-121); ANION GAP 15 (8-16); ASPARTATE AMINO TRANSFERASE 25 IU/L (15-46); BILIRUBIN,INDIRECT 0.3 mg/dl (0-1.1); BILIRUBIN,TOTAL 0.3 mg/dl (0.2-1.3); BLOOD UREA NITROGEN 43 mg/dl (7-20); CALCIUM 8.4 mg/dl (8.4-10.2); CARBON DIOXIDE 20 mmol/L (21-31); CHLORIDE 113 mmol/L (97-110); CREATININE 1.14 mg/dl (0.44-1.00); GLUCOSE 92 mg/dl (70-220); POTASSIUM 3.7 mmol/L (3.5-5.1); SODIUM 144 mmol/L (135-144); TOTAL PROTEIN 4.8 g/dl (6.1-8.1)
[2018-02-11] MEDS: ACETAMINOPHEN 1000MG/100ML IV 100 ML IVPB ×3 (06:21→17:56)
[2018-02-11] MEDS: PANTOPRAZOLE 40 MG INJ IV (06:21)
[2018-02-11] MEDS: VALPROATE INJ 500 MG in SOD CHLORIDE 0.9% 50 ML IVPB ×3 (06:22→22:54)
[2018-02-11] MEDS: PIPER-TAZO 2.25 GM (PMX) 50 ML IVPB ×3 (06:22→21:49)
[2018-02-11 07:40] LABS: ANISOCYTOSIS 1+ (0-0); BAND NEUTROPHILS % (M) 13 % (0-4); BURR CELLS 1+ (0-0); EOSINOPHILS % (M) 2 % (0-7); GIANT THROMBO% (M) 9 % (0-0); LYMPHOCYTES #M 1.1 10^3/ul (0.8-2.9); LYMPHOCYTES % (M) 15 % (15-51); METAMYELOCYTES #M 0.3 10^3/ul (0.0-0.0); METAMYELOCYTES %M 4 % (0-0); MONOCYTE #M 0.1 10^3/ul (0.3-0.9); MONOCYTES % (M) 2 % (0-11); MYELOCYTES % (M) 1 % (0-0); OVALOCYTES 1+ (0-0); PLASMAC%(M) 1 % (0); PLATELET MORPHOLOGY COMMENT @See below; POIKILOCYTOSIS 2+ (0-0); SEG NEUT #M 4.9 10^3/ul (1.6-7.5); SEGMENTED NEUTROPHILS (M) % 62 % (39-77); SMUDGE%M 6 % (0-0); SPHEROCYTES 1+ (0-0); TARGET CELLS 1+ (0-0)
[2018-02-11 08:46] LABS: AADO2 Arterial 74.1 mmHg (7.0-24.0); Arterial Base Excess -6.4 mmol/L (-3.0-3); Arterial COHb 0.6 % (0.0-3.0); Arterial Fraction of Oxyhgb 96.3 % (93.0-99.0); Arterial HCO3 18.1 mmol/L (22.0-26.0); Arterial MetHb 0.1 % (0.0-1.5); Arterial Total Hemglobin 9.1 g/dl (12.0-18.0); Arterial pCO2 31.9 mmhg (35-45); MODE VENT - AC; Site A-Line
[2018-02-11] MEDS: SOD CHLORIDE 0.9% IV ×2 (09:06→20:01)
[2018-02-11] MEDS: AZTREONAM IV ×2 (09:06→20:01)
[2018-02-11] MEDS: PHYTONADIONE 10 MG in DEXTROSE 5% 50 ML IVPB ×2 (09:41→21:14)
[2018-02-11] MEDS: DEXTROSE 5%-0.9% NACL 1,000 ML IV ×3 (09:41→22:53)
[2018-02-11] MEDS: FLUCONAZOLE 200 MG (PMX) 100 ML IVPB (12:16)
[2018-02-11] MEDS: FENTAnyl (DRIP) 1000 mcg/100mL 100 ML IV (15:26)
[2018-02-12] MEDS: ACETAMINOPHEN 1000MG/100ML IV 100 ML IVPB ×5 (00:02→23:13)
[2018-02-12] MEDS: PROPOFOL 100 ML IV ×2 (00:30→12:30)
[2018-02-12] MEDS: PANTOPRAZOLE 40 MG INJ IV (05:14)
[2018-02-12] MEDS: PIPER-TAZO 2.25 GM (PMX) 50 ML IVPB ×3 (05:14→21:22)
[2018-02-12 05:39] LABS: ABNORMAL IP MESSAGE 1; HEMATOCRIT 27.3 % (37.0-47.0); MEAN CORPUSCULAR HEMOGLOBIN 28.8 pg (29.0-33.0); MEAN CORPUSCULAR VOLUME 87.2 fl (82.0-101.0); MEAN PLATELET VOLUME 11.7 fl (7.4-10.4); NUCLEATED RED BLOOD CELLS% 0.4 /100WBC (0.0-0.0); PLATELET COUNT 114 10^3/UL (140-415); RED BLOOD COUNT 3.13 10^6/ul (4.20-5.40); RED CELL DISTRIBUTION WIDTH 18.7 % (11.5-14.5)
[2018-02-12 05:39] LABS: WHITE BLOOD COUNT 7.4 10^3/ul (4.8-10.8)
[2018-02-12 05:42] LABS: POSITIVE DIFF @See below
[2018-02-12 05:43] LABS: ADD MAN DIFF? YES
[2018-02-12] MEDS: VALPROATE INJ 500 MG in SOD CHLORIDE 0.9% 50 ML IVPB ×3 (05:44→22:04)
[2018-02-12 06:06] LABS: VALPROATE 29 ug/ml (50-100)
[2018-02-12 06:06] LABS: ANION GAP 9 (8-16); BLOOD UREA NITROGEN 40 mg/dl (7-20); CALCIUM 8.5 mg/dl (8.4-10.2); CARBON DIOXIDE 22 mmol/L (21-31); CHLORIDE 118 mmol/L (97-110); CREATININE 0.97 mg/dl (0.44-1.00); GLUCOSE 83 mg/dl (70-220); POTASSIUM 3.8 mmol/L (3.5-5.1); SODIUM 145 mmol/L (135-144)
[2018-02-12 07:59] LABS: ANISOCYTOSIS 1+ (0-0); BAND NEUTROPHILS #M 1.7 10^3/ul (0.0-0.6); BAND NEUTROPHILS % (M) 24 % (0-4); BASOPHILS % (M) 1 % (0-2); BURR CELLS 1+ (0-0); GIANT THROMBO% (M) 2 % (0-0); LYMPHOCYTES #M 0.5 10^3/ul (0.8-2.9); LYMPHOCYTES % (M) 8 % (15-51); METAMYELOCYTES %M 1 % (0-0); MONOCYTE #M 0.5 10^3/ul (0.3-0.9); MONOCYTES % (M) 7 % (0-11); MYELOCYTES #M 0.1 10^3/ul (0.0-0.0); MYELOCYTES % (M) 2 % (0-0); PLATELET ESTIMATE DECREASED; POIKILOCYTOSIS 2+ (0-0); REACTIVE LYMPHOCYTES #M 0.1 10^3/ul (0.0-0.0); REACTIVE LYMPHOCYTES% (M) 2 % (0-0); SEG NEUT #M 4.2 10^3/ul (1.6-7.5); SEGMENTED NEUTROPHILS (M) % 55 % (39-77); SMUDGE%M 8 % (0-0); TARGET CELLS 1+ (0-0)
[2018-02-12] MEDS ORDERED: TPN 1,000 ML IV (08:31)
[2018-02-12 08:59] LABS: AADO2 Arterial 61.5 mmHg (7.0-24.0); Arterial Base Excess -5.9 mmol/L (-3.0-3); Arterial Blood Gas Oxygen Sat 97.5 mmHG (95.0-100.0); Arterial COHb 0.4 % (0.0-3.0); Arterial HCO3 18.9 mmol/L (22.0-26.0); Arterial MetHb 0.1 % (0.0-1.5); Arterial Total Hemglobin 10.2 g/dl (12.0-18.0); Arterial pCO2 34.4 mmhg (35-45); MODE VENT - AC; Site A-Line
[2018-02-12] MEDS: ACCU-CHEK XX ×4 (09:00→21:00)
[2018-02-12 09:06] LABS: INR 1.12; PROTIME 14.6 Sec (11.9-14.9); PT RATIO 1.1
[2018-02-12 09:07] LABS: PARTIAL THROMBOPLASTIN TIME 47.1 Sec (25.0-35.0)
[2018-02-12] MEDS: morphine 2 MG INJ IV ×2 (09:44→15:04)
[2018-02-12] MEDS: SOD CHLORIDE 0.9% IV ×2 (09:51→20:05)
[2018-02-12] MEDS: AZTREONAM IV ×2 (09:51→20:05)
[2018-02-12] MEDS: PHYTONADIONE 10 MG in DEXTROSE 5% 50 ML IVPB (09:53)
[2018-02-12 11:52] LABS: LACTIC ACID 1.8 mmol/L (0.5-2.0)
[2018-02-12] MEDS: FLUCONAZOLE 200 MG (PMX) 100 ML IVPB (13:05)
[2018-02-12 14:20] LABS: PREALBUMIN 10.1 mg/dl (17.6-36.0)
[2018-02-12] MEDS: FENTAnyl (DRIP) 1000 mcg/100mL 100 ML IV (14:24)
[2018-02-12] MEDS: TPN 1,000 ML IV (16:51)
[2018-02-12] MEDS: EPOETIN 10000 UNITS/ML (NON ESRD/NON ONCOLOGY) SC (16:56)
[2018-02-12] MEDS: DEXTROSE 5%-0.9% NACL 1,000 ML IV (20:04)
[2018-02-12 23:22] LABS: ERYTHROPOIETIN 58.3 mIU/mL (2.6-18.5)
[2018-02-13] MEDS: PROPOFOL 100 ML IV ×2 (00:30→12:12)
[2018-02-13] MEDS: ACCU-CHEK XX ×4 (00:42→17:50)
[2018-02-13] MEDS: FENTAnyl (DRIP) 1000 mcg/100mL 100 ML IV ×4 (04:34→22:51)
[2018-02-13] MEDS: ACETAMINOPHEN 1000MG/100ML IV 100 ML IVPB ×4 (04:37→22:31)
[2018-02-13] MEDS: PANTOPRAZOLE 40 MG INJ IV (05:05)
[2018-02-13] MEDS: PIPER-TAZO 2.25 GM (PMX) 50 ML IVPB ×3 (05:06→21:30)
[2018-02-13 05:47] LABS: ABNORMAL IP MESSAGE 1; HEMATOCRIT 27.3 % (37.0-47.0); HEMOGLOBIN 8.9 g/dl (12.0-16.0); MEAN CORPUSCULAR HGB CONC 32.6 g/dl (32.0-37.0); MEAN CORPUSCULAR VOLUME 88.9 fl (82.0-101.0); MEAN PLATELET VOLUME 11.2 fl (7.4-10.4); NUCLEATED RED BLOOD CELLS% 0.6 /100WBC (0.0-0.0); PLATELET COUNT 156 10^3/UL (140-415); RED BLOOD COUNT 3.07 10^6/ul (4.20-5.40); RED CELL DISTRIBUTION WIDTH 19.1 % (11.5-14.5)
[2018-02-13 05:47] LABS: WHITE BLOOD COUNT 6.4 10^3/ul (4.8-10.8)
[2018-02-13] MEDS: VALPROATE INJ 500 MG in SOD CHLORIDE 0.9% 50 ML IVPB ×3 (05:53→21:30)
[2018-02-13] MEDS: DEXTROSE 5%-0.9% NACL 1,000 ML IV ×2 (06:12→20:02)
[2018-02-13 06:33] LABS: TRIGLYCERIDES 147 mg/dl (0-149)
[2018-02-13 06:40] LABS: ANION GAP 10 (8-16); BLOOD UREA NITROGEN 34 mg/dl (7-20); CALCIUM 8.6 mg/dl (8.4-10.2); CARBON DIOXIDE 23 mmol/L (21-31); CHLORIDE 119 mmol/L (97-110); CREATININE 0.82 mg/dl (0.44-1.00); GLUCOSE 110 mg/dl (70-220); MAGNESIUM 2.1 mg/dl (1.7-2.5); PHOSPHORUS 3.6 mg/dl (2.5-4.9); SODIUM 148 mmol/L (135-144)
[2018-02-13 07:05] LABS: POSITIVE DIFF @See below
[2018-02-13 07:06] LABS: ADD MAN DIFF? YES
[2018-02-13 07:34] LABS: AADO2 Arterial 60.3 mmHg (7.0-24.0); Arterial Blood Gas Oxygen Sat 97.4 mmHG (95.0-100.0); Arterial COHb 0.8 % (0.0-3.0); Arterial Fraction of Oxyhgb 96.3 % (93.0-99.0); Arterial HCO3 21.4 mmol/L (22.0-26.0); Arterial MetHb 0.3 % (0.0-1.5); Arterial Total Hemglobin 8.9 g/dl (12.0-18.0); Arterial pCO2 40.2 mmhg (35-45); MODE VENT - AC; Site Right Brachial
[2018-02-13] MEDS: SOD CHLORIDE 0.9% IV ×2 (08:00→20:34)
[2018-02-13] MEDS: AZTREONAM IV ×2 (08:00→20:34)
[2018-02-13] MEDS: FUROSEMIDE 40 MG INJ IV ×2 (08:36→17:50)
[2018-02-13] MEDS: ALBUMIN HUMAN 25% 100 ML IV ×2 (08:38→15:58)
[2018-02-13 09:50] LABS: ANISOCYTOSIS 1+ (0-0); BAND NEUTROPHILS #M 1.2 10^3/ul (0.0-0.6); BAND NEUTROPHILS % (M) 19 % (0-4); EOSINOPHILS % (M) 1 % (0-7); ERYTHROBLAST% (NRBC) (M) 1 % (0-0); GIANT THROMBO% (M) 2 % (0-0); HYPOCHROMASIA 2+ (0-0); LYMPHOCYTES % (M) 17 % (15-51); METAMYELOCYTES #M 0.3 10^3/ul (0.0-0.0); METAMYELOCYTES %M 6 % (0-0); MONOCYTE #M 0.3 10^3/ul (0.3-0.9); MONOCYTES % (M) 5 % (0-11); MYELOCYTES % (M) 1 % (0-0); PLATELET ESTIMATE DECREASED; POIKILOCYTOSIS 1+ (0-0); POLYCHROMASIA 1+ (0-0); REACTIVE LYMPHOCYTES #M 0.1 10^3/ul (0.0-0.0); REACTIVE LYMPHOCYTES% (M) 2 % (0-0); SEG NEUT #M 3.3 10^3/ul (1.6-7.5); SEGMENTED NEUTROPHILS (M) % 50 % (39-77); SMUDGE%M 27 % (0-0)
[2018-02-13] MEDS: FLUCONAZOLE 200 MG (PMX) 100 ML IVPB (11:01)
[2018-02-13] MEDS: TPN 1,000 ML IV (12:00)
[2018-02-13] MEDS: DEXMEDETOMIDINE HCL 200 MCG in SOD CHLORIDE 0.9% 48 ML IV ×3 (14:14→21:33)
[2018-02-14] MEDS: ALBUMIN HUMAN 25% 100 ML IV (00:19)
[2018-02-14] MEDS: PROPOFOL 100 ML IV (00:30)
[2018-02-14] MEDS: ACCU-CHEK XX ×5 (00:40→23:39)
[2018-02-14] MEDS: ACETAMINOPHEN 1000MG/100ML IV 100 ML IVPB ×4 (05:20→22:37)
[2018-02-14] MEDS: PANTOPRAZOLE 40 MG INJ IV (05:24)
[2018-02-14] MEDS: VALPROATE INJ 500 MG in SOD CHLORIDE 0.9% 50 ML IVPB ×3 (05:24→21:30)
[2018-02-14] MEDS: PIPER-TAZO 2.25 GM (PMX) 50 ML IVPB ×3 (05:30→21:31)
[2018-02-14 05:42] LABS: ANION GAP 15 (8-16); BLOOD UREA NITROGEN 32 mg/dl (7-20); CALCIUM 8.6 mg/dl (8.4-10.2); CARBON DIOXIDE 23 mmol/L (21-31); CHLORIDE 115 mmol/L (97-110); CREATININE 0.71 mg/dl (0.44-1.00); GLUCOSE 100 mg/dl (70-220); MAGNESIUM 1.7 mg/dl (1.7-2.5); PHOSPHORUS 3.2 mg/dl (2.5-4.9); SODIUM 149 mmol/L (135-144)
[2018-02-14] MEDS: FUROSEMIDE 40 MG INJ IV (06:22)
[2018-02-14] MEDS: DEXMEDETOMIDINE HCL 200 MCG in SOD CHLORIDE 0.9% 48 ML IV ×2 (06:23→17:19)
[2018-02-14] MEDS: TPN 1,000 ML IV (07:02)
[2018-02-14] MEDS: FENTAnyl (DRIP) 1000 mcg/100mL 100 ML IV ×2 (08:18→22:03)
[2018-02-14] MEDS: SOD CHLORIDE 0.9% IV ×2 (08:57→20:58)
[2018-02-14] MEDS: AZTREONAM IV ×2 (08:57→20:58)
[2018-02-14] MEDS: DEXTROSE 5%-0.9% NACL 1,000 ML IV (13:31)
[2018-02-14] MEDS: FLUCONAZOLE 200 MG (PMX) 100 ML IVPB (13:34)
[2018-02-14] MEDS: EPOETIN 10000 UNITS/ML (NON ESRD/NON ONCOLOGY) SC (17:24)
[2018-02-14] MEDS ORDERED: oxyCODONE 5 MG TAB (18:46)
[2018-02-14] MEDS ORDERED: NORepinephrine 8MG/250 ML (PMX 250 ML (18:47)
[2018-02-15] MEDS: DEXMEDETOMIDINE HCL 200 MCG in SOD CHLORIDE 0.9% 48 ML IV ×3 (02:37→18:18)
[2018-02-15] MEDS: TPN 1,000 ML IV ×2 (02:38→21:34)
[2018-02-15] MEDS: DEXTROSE 5%-0.9% NACL 1,000 ML IV ×2 (03:00→17:44)
[2018-02-15] MEDS: ACETAMINOPHEN 1000MG/100ML IV 100 ML IVPB ×4 (04:32→23:40)
[2018-02-15] MEDS: VALPROATE INJ 500 MG in SOD CHLORIDE 0.9% 50 ML IVPB ×3 (05:00→22:17)
[2018-02-15] MEDS: PANTOPRAZOLE 40 MG INJ IV (05:00)
[2018-02-15] MEDS: FENTAnyl (DRIP) 1000 mcg/100mL 100 ML IV ×2 (05:15→19:48)
[2018-02-15] MEDS: ACCU-CHEK XX ×3 (05:31→18:00)
[2018-02-15] MEDS: PIPER-TAZO 2.25 GM (PMX) 50 ML IVPB ×3 (05:31→22:17)
[2018-02-15 05:47] LABS: ABNORMAL IP MESSAGE 1; HEMATOCRIT 23.5 % (37.0-47.0); HEMOGLOBIN 7.3 g/dl (12.0-16.0); MEAN CORPUSCULAR HEMOGLOBIN 28.2 pg (29.0-33.0); MEAN CORPUSCULAR HGB CONC 31.1 g/dl (32.0-37.0); MEAN CORPUSCULAR VOLUME 90.7 fl (82.0-101.0); MEAN PLATELET VOLUME 11.4 fl (7.4-10.4); NUCLEATED RED BLOOD CELLS% 0.7 /100WBC (0.0-0.0); PLATELET COUNT 189 10^3/UL (140-415); RED BLOOD COUNT 2.59 10^6/ul (4.20-5.40); RED CELL DISTRIBUTION WIDTH 19.9 % (11.5-14.5)
[2018-02-15 05:47] LABS: WHITE BLOOD COUNT 6.1 10^3/ul (4.8-10.8)
[2018-02-15 05:58] LABS: ADD MAN DIFF? YES; POSITIVE DIFF @See below
[2018-02-15 06:04] LABS: PHOSPHORUS 3.3 mg/dl (2.5-4.9)
[2018-02-15 06:04] LABS: MAGNESIUM 1.6 mg/dl (1.7-2.5)
[2018-02-15 06:22] LABS: ALANINE AMINOTRANSFERASE 14 IU/L (13-69); ALBUMIN 2.5 g/dl (3.3-4.9); ALBUMIN/GLOBULIN RATIO 0.86; ALKALINE PHOSPHATASE 163 IU/L (42-121); ANION GAP 11 (8-16); ASPARTATE AMINO TRANSFERASE 27 IU/L (15-46); BILIRUBIN,INDIRECT 0.2 mg/dl (0-1.1); BILIRUBIN,TOTAL 0.2 mg/dl (0.2-1.3); BLOOD UREA NITROGEN 34 mg/dl (7-20); CALCIUM 8.7 mg/dl (8.4-10.2); CARBON DIOXIDE 23 mmol/L (21-31); CHLORIDE 117 mmol/L (97-110); CREATININE 0.72 mg/dl (0.44-1.00); GLUCOSE 111 mg/dl (70-220); POTASSIUM 4.1 mmol/L (3.5-5.1); SODIUM 147 mmol/L (135-144); TOTAL PROTEIN 5.4 g/dl (6.1-8.1)
[2018-02-15 07:11] LABS: BAND NEUTROPHILS % (M) 17 % (0-4); EOSINOPHILS % (M) 1 % (0-7); ERYTHROBLAST% (NRBC) (M) 2 % (0-0); HYPOCHROMASIA 1+ (0-0); LYMPHOCYTES #M 1.4 10^3/ul (0.8-2.9); LYMPHOCYTES % (M) 24 % (15-51); MONOCYTE #M 0.4 10^3/ul (0.3-0.9); MONOCYTES % (M) 8 % (0-11); MYELOCYTES % (M) 1 % (0-0); PLATELET ESTIMATE NORMAL; SEG NEUT #M 3.1 10^3/ul (1.6-7.5); SEGMENTED NEUTROPHILS (M) % 49 % (39-77); SMUDGE%M 9 % (0-0)
[2018-02-15] MEDS: MAGNESIUM SULFATE 1 GM/D5W 100 ML IVPB (09:33)
[2018-02-15] MEDS: AZTREONAM IV ×2 (11:59→21:23)
[2018-02-15] MEDS: SOD CHLORIDE 0.9% IV ×2 (11:59→21:23)
[2018-02-15] MEDS: FLUCONAZOLE 200 MG (PMX) 100 ML IVPB (12:23)
[2018-02-15 18:03] LABS: IMMEDIATE SPIN CROSSMATCH 1 1
[2018-02-16] MEDS: DEXMEDETOMIDINE HCL 200 MCG in SOD CHLORIDE 0.9% 48 ML IV ×4 (03:31→22:19)
[2018-02-16] MEDS: DEXTROSE 5%-0.9% NACL 1,000 ML IV ×3 (04:21→20:00)
[2018-02-16] MEDS: FENTAnyl (DRIP) 1000 mcg/100mL 100 ML IV ×3 (05:05→22:27)
[2018-02-16 05:42] LABS: ABNORMAL IP MESSAGE 1; HEMATOCRIT 25.8 % (37.0-47.0); HEMOGLOBIN 8.2 g/dl (12.0-16.0); MEAN CORPUSCULAR HGB CONC 31.8 g/dl (32.0-37.0); MEAN CORPUSCULAR VOLUME 91.2 fl (82.0-101.0); NUCLEATED RED BLOOD CELLS% 0.3 /100WBC (0.0-0.0); PLATELET COUNT 238 10^3/UL (140-415); RED BLOOD COUNT 2.83 10^6/ul (4.20-5.40); RED CELL DISTRIBUTION WIDTH 18.8 % (11.5-14.5)
[2018-02-16 05:42] LABS: WHITE BLOOD COUNT 6.4 10^3/ul (4.8-10.8)
[2018-02-16] MEDS: ACETAMINOPHEN 1000MG/100ML IV 100 ML IVPB ×4 (05:46→22:19)
[2018-02-16] MEDS: PANTOPRAZOLE 40 MG INJ IV (05:46)
[2018-02-16] MEDS: PIPER-TAZO 2.25 GM (PMX) 50 ML IVPB ×3 (05:47→21:16)
[2018-02-16] MEDS: VALPROATE INJ 500 MG in SOD CHLORIDE 0.9% 50 ML IVPB ×3 (05:47→21:15)
[2018-02-16 05:55] LABS: ADD MAN DIFF? YES; POSITIVE DIFF @See below
[2018-02-16] MEDS: ACCU-CHEK XX ×5 (06:00→23:33)
[2018-02-16 06:20] LABS: PHOSPHORUS 3.3 mg/dl (2.5-4.9)
[2018-02-16 06:20] LABS: MAGNESIUM 1.8 mg/dl (1.7-2.5)
[2018-02-16 06:26] LABS: ANION GAP 10 (8-16); BLOOD UREA NITROGEN 33 mg/dl (7-20); CALCIUM 8.8 mg/dl (8.4-10.2); CARBON DIOXIDE 22 mmol/L (21-31); CHLORIDE 116 mmol/L (97-110); CREATININE 0.64 mg/dl (0.44-1.00); GLUCOSE 122 mg/dl (70-220); POTASSIUM 4.2 mmol/L (3.5-5.1); SODIUM 144 mmol/L (135-144)
[2018-02-16 07:38] LABS: BAND NEUTROPHILS #M 0.7 10^3/ul (0.0-0.6); BAND NEUTROPHILS % (M) 12 % (0-4); BASOPHILS % (M) 1 % (0-2); EOSINOPHILS % (M) 1 % (0-7); ERYTHROBLAST% (NRBC) (M) 1 % (0-0); GIANT THROMBO% (M) 1 % (0-0); LYMPHOCYTES % (M) 16 % (15-51); MONOCYTE #M 0.1 10^3/ul (0.3-0.9); MONOCYTES % (M) 2 % (0-11); PLATELET ESTIMATE NORMAL; POLYCHROMASIA 1+ (0-0); REACTIVE LYMPHOCYTES% (M) 1 % (0-0); SEG NEUT #M 4.3 10^3/ul (1.6-7.5); SEGMENTED NEUTROPHILS (M) % 67 % (39-77); SMUDGE%M 11 % (0-0)
[2018-02-16] MEDS: ALBUMIN HUMAN 25% 50 ML IV ×3 (08:27→23:23)
[2018-02-16] MEDS: FUROSEMIDE 40 MG INJ IV (08:28)
[2018-02-16] MEDS: AZTREONAM IV ×2 (10:45→21:16)
[2018-02-16] MEDS: SOD CHLORIDE 0.9% IV ×2 (10:45→21:16)
[2018-02-16] MEDS: MAGNESIUM SULFATE 2 GM/50 ML 50 ML IVPB (10:45)
[2018-02-16] MEDS: FLUCONAZOLE 200 MG (PMX) 100 ML IVPB (12:15)
[2018-02-16] MEDS: morphine 2 MG INJ IV (12:15)
[2018-02-16] MEDS: EPOETIN 10000 UNITS/ML (NON ESRD/NON ONCOLOGY) SC (17:25)
[2018-02-16] MEDS: TPN 1,000 ML IV (18:16)
[2018-02-17] MEDS: morphine 2 MG INJ IV ×3 (03:55→14:36)
[2018-02-17] MEDS: DEXMEDETOMIDINE HCL 200 MCG in SOD CHLORIDE 0.9% 48 ML IV ×5 (04:57→23:29)
[2018-02-17] MEDS: ACETAMINOPHEN 1000MG/100ML IV 100 ML IVPB ×4 (04:57→22:08)
[2018-02-17] MEDS: VALPROATE INJ 500 MG in SOD CHLORIDE 0.9% 50 ML IVPB ×3 (05:09→21:01)
[2018-02-17] MEDS: PIPER-TAZO 2.25 GM (PMX) 50 ML IVPB ×3 (05:09→21:01)
[2018-02-17] MEDS: PANTOPRAZOLE 40 MG INJ IV (05:09)
[2018-02-17] MEDS: ACCU-CHEK XX ×4 (05:09→23:29)
[2018-02-17 05:49] LABS: WHITE BLOOD COUNT 6.6 10^3/ul (4.8-10.8)
[2018-02-17 05:49] LABS: ABNORMAL IP MESSAGE 1; HEMATOCRIT 25.3 % (37.0-47.0); HEMOGLOBIN 8.2 g/dl (12.0-16.0); MEAN CORPUSCULAR HEMOGLOBIN 29.6 pg (29.0-33.0); MEAN CORPUSCULAR HGB CONC 32.4 g/dl (32.0-37.0); MEAN CORPUSCULAR VOLUME 91.3 fl (82.0-101.0); MEAN PLATELET VOLUME 11.3 fl (7.4-10.4); NUCLEATED RED BLOOD CELLS% 0.5 /100WBC (0.0-0.0); PLATELET COUNT 305 10^3/UL (140-415); RED BLOOD COUNT 2.77 10^6/ul (4.20-5.40); RED CELL DISTRIBUTION WIDTH 18.7 % (11.5-14.5)
[2018-02-17 05:55] LABS: ADD MAN DIFF? YES; POSITIVE DIFF @See below
[2018-02-17 06:08] LABS: ALANINE AMINOTRANSFERASE 9 IU/L (13-69); ALBUMIN 2.7 g/dl (3.3-4.9); ALKALINE PHOSPHATASE 194 IU/L (42-121); ASPARTATE AMINO TRANSFERASE 21 IU/L (15-46); BILIRUBIN,INDIRECT 0.3 mg/dl (0-1.1); BILIRUBIN,TOTAL 0.3 mg/dl (0.2-1.3)
[2018-02-17 06:24] LABS: B-TYPE NATRIURETIC PEPTIDE 1990 PG/ML (0-125)
[2018-02-17 06:30] LABS: PHOSPHORUS 3.5 mg/dl (2.5-4.9)
[2018-02-17 06:30] LABS: AMYLASE 34 U/L (11-123); LIPASE 148 U/L (23-300)
[2018-02-17 06:40] LABS: ALANINE AMINOTRANSFERASE 12 IU/L (13-69); ALBUMIN 2.7 g/dl (3.3-4.9); ALBUMIN/GLOBULIN RATIO 0.81; ALKALINE PHOSPHATASE 195 IU/L (42-121); ANION GAP 11 (8-16); ASPARTATE AMINO TRANSFERASE 26 IU/L (15-46); BILIRUBIN,INDIRECT 0.3 mg/dl (0-1.1); BILIRUBIN,TOTAL 0.3 mg/dl (0.2-1.3); BLOOD UREA NITROGEN 28 mg/dl (7-20); CALCIUM 8.8 mg/dl (8.4-10.2); CARBON DIOXIDE 24 mmol/L (21-31); CHLORIDE 115 mmol/L (97-110); CREATININE 0.67 mg/dl (0.44-1.00); GLUCOSE 124 mg/dl (70-220); POTASSIUM 4.1 mmol/L (3.5-5.1); SODIUM 146 mmol/L (135-144)
[2018-02-17 08:09] LABS: ANISOCYTOSIS 1+ (0-0); BAND NEUTROPHILS #M 1.5 10^3/ul (0.0-0.6); BAND NEUTROPHILS % (M) 24 % (0-4); EOSINOPHILS % (M) 2 % (0-7); HYPOCHROMASIA 1+ (0-0); LYMPHOCYTES #M 0.9 10^3/ul (0.8-2.9); LYMPHOCYTES % (M) 15 % (15-51); PLATELET ESTIMATE NORMAL; POIKILOCYTOSIS 1+ (0-0); POLYCHROMASIA 3+ (0-0); REACTIVE LYMPHOCYTES #M 0.1 10^3/ul (0.0-0.0); REACTIVE LYMPHOCYTES% (M) 2 % (0-0); SEG NEUT #M 3.9 10^3/ul (1.6-7.5); SEGMENTED NEUTROPHILS (M) % 57 % (39-77); SMUDGE%M 6 % (0-0)
[2018-02-17] MEDS: AZTREONAM IV ×2 (09:18→20:45)
[2018-02-17] MEDS: FUROSEMIDE 40 MG INJ IV (09:18)
[2018-02-17] MEDS: SOD CHLORIDE 0.9% IV ×2 (09:18→20:45)
[2018-02-17] MEDS: DEXTROSE 5%-0.9% NACL 1,000 ML IV (11:04)
[2018-02-17] MEDS ORDERED: FUROSEMIDE 20 MG INJ IV (13:00)
[2018-02-17] MEDS: FLUCONAZOLE 200 MG (PMX) 100 ML IVPB (14:07)
[2018-02-17] MEDS: POTASSIUM CHLORIDE 50 ML IVPB (14:17)
[2018-02-17] MEDS: TPN 1,000 ML IV (14:37)
[2018-02-17] MEDS: FENTAnyl (DRIP) 1000 mcg/100mL 100 ML IV (18:25)
[2018-02-18] MEDS: DEXMEDETOMIDINE HCL 200 MCG in SOD CHLORIDE 0.9% 48 ML IV ×4 (04:23→23:13)
[2018-02-18] MEDS: ACETAMINOPHEN 1000MG/100ML IV 100 ML IVPB ×4 (04:24→23:05)
[2018-02-18] MEDS: morphine 2 MG INJ IV ×2 (04:24→13:03)
[2018-02-18] MEDS: PIPER-TAZO 2.25 GM (PMX) 50 ML IVPB ×3 (05:08→22:23)
[2018-02-18] MEDS: VALPROATE INJ 500 MG in SOD CHLORIDE 0.9% 50 ML IVPB ×3 (05:09→21:05)
[2018-02-18] MEDS: PANTOPRAZOLE 40 MG INJ IV (05:09)
[2018-02-18] MEDS: ACCU-CHEK XX ×3 (05:09→17:13)
[2018-02-18 05:10] LABS: ADD MAN DIFF? NO
[2018-02-18 05:32] LABS: BASOPHILS % 0.7 % (0.0-2.0); EOSINOPHILS # 0.1 10^3/ul (0.0-0.5); EOSINOPHILS % 2.1 % (0.0-7.0); HEMATOCRIT 23.7 % (37.0-47.0); HEMOGLOBIN 7.6 g/dl (12.0-16.0); LYMPHOCYTES # 1.1 10^3/ul (0.8-2.9); LYMPHOCYTES % 20.9 % (15.0-51.0); MEAN CORPUSCULAR HEMOGLOBIN 29.2 pg (29.0-33.0); MEAN CORPUSCULAR HGB CONC 32.1 g/dl (32.0-37.0); MEAN CORPUSCULAR VOLUME 91.2 fl (82.0-101.0); MEAN PLATELET VOLUME 11.3 fl (7.4-10.4); MONOCYTE # 0.4 10^3/ul (0.3-0.9); MONOCYTES % 7.8 % (0.0-11.0); NEUTROPHIL # 3.5 10^3/ul (1.6-7.5); NEUTROPHILS % 64.8 % (39.0-77.0); NUCLEATED RED BLOOD CELLS% 0.4 /100WBC (0.0-0.0); PLATELET COUNT 358 10^3/UL (140-415); RED CELL DISTRIBUTION WIDTH 19.3 % (11.5-14.5)
[2018-02-18 05:32] LABS: WHITE BLOOD COUNT 5.4 10^3/ul (4.8-10.8)
[2018-02-18 05:53] LABS: B-TYPE NATRIURETIC PEPTIDE 1490 PG/ML (0-125)
[2018-02-18 06:05] LABS: PHOSPHORUS 3.3 mg/dl (2.5-4.9)
[2018-02-18 06:05] LABS: MAGNESIUM 1.9 mg/dl (1.7-2.5)
[2018-02-18 06:09] LABS: ANION GAP 8 (8-16); BLOOD UREA NITROGEN 26 mg/dl (7-20); CALCIUM 8.6 mg/dl (8.4-10.2); CARBON DIOXIDE 26 mmol/L (21-31); CHLORIDE 117 mmol/L (97-110); GLUCOSE 113 mg/dl (70-220); POTASSIUM 4.2 mmol/L (3.5-5.1); SODIUM 147 mmol/L (135-144)
[2018-02-18] MEDS: FENTAnyl (DRIP) 1000 mcg/100mL 100 ML IV ×2 (06:56→09:05)
[2018-02-18 07:11] LABS: FREE T4 (FREE THYROXINE) 0.62 ng/dl (0.78-2.44)
[2018-02-18] MEDS: AZTREONAM IV ×2 (09:02→20:32)
[2018-02-18] MEDS: SOD CHLORIDE 0.9% IV ×2 (09:02→20:32)
[2018-02-18] MEDS: FUROSEMIDE 40 MG INJ IV (09:03)
[2018-02-18] MEDS: TPN 1,000 ML IV (09:52)
[2018-02-18] MEDS: DEXTROSE 5%-0.9% NACL 1,000 ML IV ×2 (09:52→21:05)
[2018-02-18] MEDS: FLUCONAZOLE 200 MG (PMX) 100 ML IVPB (11:52)
[2018-02-18] MEDS ORDERED: ENOXAPARIN 60 MG/0.6 ML SYG SC (20:00)
[2018-02-19] MEDS: ACCU-CHEK XX ×5 (00:06→23:55)
[2018-02-19] MEDS: DEXMEDETOMIDINE HCL 200 MCG in SOD CHLORIDE 0.9% 48 ML IV ×2 (02:51→05:29)
[2018-02-19] MEDS: ACETAMINOPHEN 1000MG/100ML IV 100 ML IVPB ×4 (05:27→23:43)
[2018-02-19] MEDS: PANTOPRAZOLE 40 MG INJ IV (05:27)
[2018-02-19] MEDS: FENTAnyl (DRIP) 1000 mcg/100mL 100 ML IV ×2 (05:28→21:29)
[2018-02-19] MEDS: PIPER-TAZO 2.25 GM (PMX) 50 ML IVPB ×2 (05:31→13:35)
[2018-02-19] MEDS: TPN 1,000 ML IV (05:31)
[2018-02-19 06:01] LABS: ADD MAN DIFF? NO
[2018-02-19 06:04] LABS: WHITE BLOOD COUNT 5.5 10^3/ul (4.8-10.8)
[2018-02-19 06:04] LABS: BASOPHILS % 0.5 % (0.0-2.0); EOSINOPHILS # 0.1 10^3/ul (0.0-0.5); EOSINOPHILS % 2.6 % (0.0-7.0); HEMATOCRIT 24.9 % (37.0-47.0); HEMOGLOBIN 7.9 g/dl (12.0-16.0); LYMPHOCYTES # 1.2 10^3/ul (0.8-2.9); LYMPHOCYTES % 21.4 % (15.0-51.0); MEAN CORPUSCULAR HEMOGLOBIN 29.5 pg (29.0-33.0); MEAN CORPUSCULAR HGB CONC 31.7 g/dl (32.0-37.0); MEAN CORPUSCULAR VOLUME 92.9 fl (82.0-101.0); MEAN PLATELET VOLUME 11.2 fl (7.4-10.4); MONOCYTE # 0.5 10^3/ul (0.3-0.9); MONOCYTES % 8.8 % (0.0-11.0); NEUTROPHIL # 3.5 10^3/ul (1.6-7.5); NEUTROPHILS % 63.4 % (39.0-77.0); PLATELET COUNT 430 10^3/UL (140-415); RED BLOOD COUNT 2.68 10^6/ul (4.20-5.40); RED CELL DISTRIBUTION WIDTH 18.6 % (11.5-14.5)
[2018-02-19] MEDS: VALPROATE INJ 500 MG in SOD CHLORIDE 0.9% 50 ML IVPB ×3 (06:12→21:18)
[2018-02-19 06:31] LABS: ALANINE AMINOTRANSFERASE 8 IU/L (13-69); ALBUMIN 2.4 g/dl (3.3-4.9); ALBUMIN/GLOBULIN RATIO 0.68; ALKALINE PHOSPHATASE 231 IU/L (42-121); ANION GAP 10 (8-16); ASPARTATE AMINO TRANSFERASE 18 IU/L (15-46); BILIRUBIN,INDIRECT 0.2 mg/dl (0-1.1); BILIRUBIN,TOTAL 0.2 mg/dl (0.2-1.3); BLOOD UREA NITROGEN 24 mg/dl (7-20); CALCIUM 8.3 mg/dl (8.4-10.2); CARBON DIOXIDE 25 mmol/L (21-31); CHLORIDE 114 mmol/L (97-110); GLUCOSE 117 mg/dl (70-220); POTASSIUM 4.1 mmol/L (3.5-5.1); SODIUM 145 mmol/L (135-144); TOTAL PROTEIN 5.9 g/dl (6.1-8.1)
[2018-02-19 06:59] LABS: PREALBUMIN 11.6 mg/dl (17.6-36.0)
[2018-02-19] MEDS: FUROSEMIDE 40 MG INJ IV (08:24)
[2018-02-19] MEDS: AZTREONAM IV (08:24)
[2018-02-19] MEDS: DEXTROSE 5%-0.9% NACL 1,000 ML IV ×2 (08:24→21:22)
[2018-02-19] MEDS: SOD CHLORIDE 0.9% IV (08:24)
[2018-02-19] MEDS: PROPOFOL 100 ML IV ×3 (08:37→23:43)
[2018-02-19] MEDS: ENOXAPARIN 30 MG/0.3 ML SYG SC (08:38)
[2018-02-19] MEDS: FLUCONAZOLE 200 MG (PMX) 100 ML IVPB (13:35)
[2018-02-19] MEDS: EPOETIN 10000 UNITS/ML (NON ESRD/NON ONCOLOGY) SC (17:36)
[2018-02-20] MEDS: TPN 1,000 ML IV (04:53)
[2018-02-20] MEDS: ACETAMINOPHEN 1000MG/100ML IV 100 ML IVPB ×3 (05:24→17:14)
[2018-02-20] MEDS: PANTOPRAZOLE 40 MG INJ IV (05:39)
[2018-02-20] MEDS: VALPROATE INJ 500 MG in SOD CHLORIDE 0.9% 50 ML IVPB ×3 (05:40→21:08)
[2018-02-20] MEDS: ACCU-CHEK XX ×3 (05:40→17:21)
[2018-02-20] MEDS: FUROSEMIDE 40 MG INJ IV (09:21)
[2018-02-20 09:25] LABS: ADD MAN DIFF? NO; BASOPHIL # 0.1 10^3/ul (0.0-0.1); BASOPHILS % 0.8 % (0.0-2.0); EOSINOPHILS # 0.2 10^3/ul (0.0-0.5); EOSINOPHILS % 2.3 % (0.0-7.0); LYMPHOCYTES # 1.2 10^3/ul (0.8-2.9); LYMPHOCYTES % 19.3 % (15.0-51.0); MEAN CORPUSCULAR HEMOGLOBIN 28.5 pg (29.0-33.0); MEAN CORPUSCULAR HGB CONC 30.8 g/dl (32.0-37.0); MEAN CORPUSCULAR VOLUME 92.5 fl (82.0-101.0); MEAN PLATELET VOLUME 10.9 fl (7.4-10.4); MONOCYTE # 0.6 10^3/ul (0.3-0.9); MONOCYTES % 9.3 % (0.0-11.0); NEUTROPHIL # 4.3 10^3/ul (1.6-7.5); NEUTROPHILS % 66.4 % (39.0-77.0); PLATELET COUNT 509 10^3/UL (140-415); RED BLOOD COUNT 2.81 10^6/ul (4.20-5.40); RED CELL DISTRIBUTION WIDTH 18.6 % (11.5-14.5)
[2018-02-20 09:25] LABS: WHITE BLOOD COUNT 6.4 10^3/ul (4.8-10.8)
[2018-02-20] MEDS: ENOXAPARIN 30 MG/0.3 ML SYG SC (09:28)
[2018-02-20] MEDS: PROPOFOL 100 ML IV ×4 (09:29→20:00)
[2018-02-20 09:44] LABS: PHOSPHORUS 3.8 mg/dl (2.5-4.9)
[2018-02-20 09:44] LABS: MAGNESIUM 1.7 mg/dl (1.7-2.5)
[2018-02-20 09:56] LABS: ANION GAP 7 (8-16); BLOOD UREA NITROGEN 20 mg/dl (7-20); CALCIUM 8.4 mg/dl (8.4-10.2); CARBON DIOXIDE 26 mmol/L (21-31); CHLORIDE 115 mmol/L (97-110); CREATININE 0.59 mg/dl (0.44-1.00); GLUCOSE 90 mg/dl (70-220); POTASSIUM 4.1 mmol/L (3.5-5.1); SODIUM 144 mmol/L (135-144)
[2018-02-20] MEDS: DEXTROSE 5%-0.9% NACL 1,000 ML IV ×2 (11:37→17:47)
[2018-02-20] MEDS: FLUCONAZOLE 200 MG (PMX) 100 ML IVPB (12:01)
[2018-02-20] MEDS ORDERED: PENDING SANTYL ORDER FOR WOUND CARE XX (14:00)
[2018-02-20] MEDS: MAGNESIUM SULFATE 2 GM/50 ML 50 ML IVPB (17:47)
[2018-02-20] MEDS: FENTAnyl (DRIP) 1000 mcg/100mL 100 ML IV (18:22)
[2018-02-21] MEDS: TPN 1,000 ML IV ×2 (00:40→19:09)
[2018-02-21] MEDS: ACETAMINOPHEN 1000MG/100ML IV 100 ML IVPB ×4 (01:06→17:00)
[2018-02-21] MEDS: ACCU-CHEK XX ×5 (01:06→23:34)
[2018-02-21] MEDS: PROPOFOL 100 ML IV ×3 (03:21→21:28)
[2018-02-21 04:58] LABS: ADD MAN DIFF? NO
[2018-02-21 05:02] LABS: WHITE BLOOD COUNT 6.4 10^3/ul (4.8-10.8)
[2018-02-21 05:02] LABS: BASOPHIL # 0.1 10^3/ul (0.0-0.1); BASOPHILS % 0.9 % (0.0-2.0); EOSINOPHILS # 0.2 10^3/ul (0.0-0.5); EOSINOPHILS % 2.3 % (0.0-7.0); HEMATOCRIT 26.9 % (37.0-47.0); HEMOGLOBIN 8.4 g/dl (12.0-16.0); LYMPHOCYTES # 1.3 10^3/ul (0.8-2.9); LYMPHOCYTES % 19.8 % (15.0-51.0); MEAN CORPUSCULAR HEMOGLOBIN 29.1 pg (29.0-33.0); MEAN CORPUSCULAR HGB CONC 31.2 g/dl (32.0-37.0); MEAN CORPUSCULAR VOLUME 93.1 fl (82.0-101.0); MEAN PLATELET VOLUME 10.3 fl (7.4-10.4); MONOCYTE # 0.5 10^3/ul (0.3-0.9); MONOCYTES % 7.5 % (0.0-11.0); NEUTROPHIL # 4.3 10^3/ul (1.6-7.5); NEUTROPHILS % 67.8 % (39.0-77.0); PLATELET COUNT 583 10^3/UL (140-415); RED BLOOD COUNT 2.89 10^6/ul (4.20-5.40); RED CELL DISTRIBUTION WIDTH 18.4 % (11.5-14.5)
[2018-02-21 05:23] LABS: ANION GAP 9 (8-16); BLOOD UREA NITROGEN 17 mg/dl (7-20); CALCIUM 8.3 mg/dl (8.4-10.2); CARBON DIOXIDE 26 mmol/L (21-31); CHLORIDE 111 mmol/L (97-110); CREATININE 0.55 mg/dl (0.44-1.00); GLUCOSE 94 mg/dl (70-220); POTASSIUM 4.2 mmol/L (3.5-5.1); SODIUM 142 mmol/L (135-144)
[2018-02-21] MEDS: PANTOPRAZOLE 40 MG INJ IV (05:30)
[2018-02-21] MEDS: VALPROATE INJ 500 MG in SOD CHLORIDE 0.9% 50 ML IVPB ×3 (05:48→21:28)
[2018-02-21] MEDS: GENTAMICIN 0.1% 15 GM OINT TOP ×2 (09:26→20:40)
[2018-02-21] MEDS: FUROSEMIDE 40 MG INJ IV (09:27)
[2018-02-21] MEDS: ENOXAPARIN 30 MG/0.3 ML SYG SC (09:30)
[2018-02-21] MEDS: DEXTROSE 5%-0.9% NACL 1,000 ML IV (11:07)
[2018-02-21] MEDS: LIDOCAINE 1% (MPF) 5 ML VIAL SC (13:56)
[2018-02-21] MEDS: FLUCONAZOLE 200 MG (PMX) 100 ML IVPB (14:54)
[2018-02-21] MEDS: EPOETIN 10000 UNITS/ML (NON ESRD/NON ONCOLOGY) SC (17:48)
[2018-02-21] MEDS: FENTAnyl (DRIP) 1000 mcg/100mL 100 ML IV (21:49)
[2018-02-21] MEDS ORDERED: ATROPINE 1 MG/10 ML SYRINGE (21:55)
[2018-02-22] MEDS: DEXTROSE 5%-0.9% NACL 1,000 ML IV ×2 (03:19→04:53)
[2018-02-22] MEDS: PROPOFOL 100 ML IV ×3 (04:53→20:01)
[2018-02-22 05:23] LABS: ANION GAP 8 (8-16); BLOOD UREA NITROGEN 14 mg/dl (7-20); CALCIUM 8.2 mg/dl (8.4-10.2); CARBON DIOXIDE 29 mmol/L (21-31); CHLORIDE 110 mmol/L (97-110); CREATININE 0.59 mg/dl (0.44-1.00); GLUCOSE 92 mg/dl (70-220); MAGNESIUM 1.8 mg/dl (1.7-2.5); PHOSPHORUS 3.8 mg/dl (2.5-4.9); SODIUM 143 mmol/L (135-144)
[2018-02-22] MEDS: PANTOPRAZOLE 40 MG INJ IV (05:55)
[2018-02-22] MEDS: VALPROATE INJ 500 MG in SOD CHLORIDE 0.9% 50 ML IVPB ×3 (05:56→20:55)
[2018-02-22] MEDS: ACCU-CHEK XX ×3 (05:58→18:29)
[2018-02-22 08:48] LABS: ADD MAN DIFF? NO
[2018-02-22 08:50] LABS: WHITE BLOOD COUNT 6.3 10^3/ul (4.8-10.8)
[2018-02-22 08:50] LABS: BASOPHILS % 0.6 % (0.0-2.0); EOSINOPHILS # 0.1 10^3/ul (0.0-0.5); EOSINOPHILS % 1.9 % (0.0-7.0); HEMATOCRIT 25.9 % (37.0-47.0); LYMPHOCYTES # 1.2 10^3/ul (0.8-2.9); LYMPHOCYTES % 19.6 % (15.0-51.0); MEAN CORPUSCULAR HEMOGLOBIN 29.2 pg (29.0-33.0); MEAN CORPUSCULAR HGB CONC 30.9 g/dl (32.0-37.0); MEAN CORPUSCULAR VOLUME 94.5 fl (82.0-101.0); MEAN PLATELET VOLUME 10.2 fl (7.4-10.4); MONOCYTE # 0.4 10^3/ul (0.3-0.9); MONOCYTES % 5.9 % (0.0-11.0); NEUTROPHIL # 4.5 10^3/ul (1.6-7.5); NEUTROPHILS % 70.7 % (39.0-77.0); PLATELET COUNT 563 10^3/UL (140-415); RED BLOOD COUNT 2.74 10^6/ul (4.20-5.40); RED CELL DISTRIBUTION WIDTH 18.2 % (11.5-14.5)
[2018-02-22] MEDS: GENTAMICIN 0.1% 15 GM OINT TOP ×2 (09:14→20:55)
[2018-02-22] MEDS: FUROSEMIDE 40 MG INJ IV (09:14)
[2018-02-22] MEDS: ENOXAPARIN 30 MG/0.3 ML SYG SC (09:15)
[2018-02-22] MEDS: FLUCONAZOLE 200 MG (PMX) 100 ML IVPB (12:47)
[2018-02-22 13:46] LABS: BAND NEUTROPHILS #M 0.1 10^3/ul (0.0-0.6); BAND NEUTROPHILS % (M) 3 % (0-4); BASOPHIL #M 0.1 10^3/ul (0.0-0.0); BASOPHILS % (M) 2 % (0-2); EOSINOPHILS % (M) 3 % (0-7); GIANT THROMBO% (M) 1 % (0-0); LYMPHOCYTES #M 1.3 10^3/ul (0.8-2.9); LYMPHOCYTES % (M) 22 % (15-51); MONOCYTE #M 0.1 10^3/ul (0.3-0.9); MONOCYTES % (M) 3 % (0-11); PLATELET ESTIMATE INCREASED; REACTIVE LYMPHOCYTES #M 0.3 10^3/ul (0.0-0.0); REACTIVE LYMPHOCYTES% (M) 6 % (0-0); SEG NEUT #M 3.8 10^3/ul (1.6-7.5); SEGMENTED NEUTROPHILS (M) % 61 % (39-77); SMUDGE%M 7 % (0-0)
[2018-02-22 13:48] LABS: SEGMENTED NEUTROPHILS (M) % 67 % (39-77)
[2018-02-22 13:48] LABS: ANISOCYTOSIS 1+ (0-0); BAND NEUTROPHILS % (M) 4 % (0-4); EOSINOPHILS % (M) 2 % (0-7); LYMPHOCYTES % (M) 22 % (15-51); MYELOCYTES % (M) 1 % (0-0); PLATELET ESTIMATE INCREASED; REACTIVE LYMPHOCYTES% (M) 4 % (0-0); SMUDGE%M 13 % (0-0)
[2018-02-22] MEDS: MAGNESIUM SULFATE 2 GM/50 ML 50 ML IVPB (15:16)
[2018-02-22] MEDS: TPN 1,000 ML IV (16:36)
[2018-02-22] MEDS ORDERED: ROCURONIUM 50 MG INJ ×2 (22:33→23:21)
[2018-02-22] MEDS ORDERED: FENTAnyl 50 MCG/ML VIAL (22:49)
[2018-02-22] MEDS ORDERED: MIDAZOLAM 1 MG/ML 2 ML INJ (22:49)
[2018-02-22] MEDS ORDERED: PHENYLephrine (100 MCG/ML) 5ML SYG (22:53)
[2018-02-22] MEDS ORDERED: EPHEDrine SULFATE 50 MG/5 ML SYG IV (23:00)
[2018-02-22] MEDS ORDERED: ALBUMIN HUMAN 5% 250 ML IV (23:00)
[2018-02-22] MEDS ORDERED: ONDANSETRON 4 MG INJ IV (23:00)
[2018-02-22] MEDS ORDERED: HYDROmorphONE 0.5 MG/0.5 ML SYG IV ×2 (23:00)
[2018-02-22] MEDS ORDERED: LABETALOL HCL 20MG INJ IV (23:00)
[2018-02-22] MEDS ORDERED: hydrALAzine 20 MG INJ IV (23:00)
[2018-02-22] MEDS: LIDOCAINE 1.5%/EPI MPF (SDV) 30 ML VIAL INJ (23:00)
[2018-02-22] MEDS ORDERED: FENTAnyl 50 MCG/ML VIAL IV ×2 (23:00)
[2018-02-23] MEDS: FENTAnyl (DRIP) 1000 mcg/100mL 100 ML IV (02:26)
[2018-02-23 04:57] LABS: ADD MAN DIFF? NO
[2018-02-23 05:00] LABS: WHITE BLOOD COUNT 6.5 10^3/ul (4.8-10.8)
[2018-02-23 05:00] LABS: BASOPHILS % 0.6 % (0.0-2.0); EOSINOPHILS # 0.1 10^3/ul (0.0-0.5); HEMATOCRIT 25.7 % (37.0-47.0); LYMPHOCYTES # 0.9 10^3/ul (0.8-2.9); LYMPHOCYTES % 14.4 % (15.0-51.0); MEAN CORPUSCULAR HEMOGLOBIN 28.7 pg (29.0-33.0); MEAN CORPUSCULAR HGB CONC 31.1 g/dl (32.0-37.0); MEAN CORPUSCULAR VOLUME 92.1 fl (82.0-101.0); MEAN PLATELET VOLUME 10.2 fl (7.4-10.4); MONOCYTE # 0.5 10^3/ul (0.3-0.9); MONOCYTES % 8.1 % (0.0-11.0); NEUTROPHIL # 4.8 10^3/ul (1.6-7.5); NEUTROPHILS % 73.4 % (39.0-77.0); PLATELET COUNT 544 10^3/UL (140-415); RED BLOOD COUNT 2.79 10^6/ul (4.20-5.40)
[2018-02-23 05:34] LABS: ANION GAP 8 (8-16); BLOOD UREA NITROGEN 14 mg/dl (7-20); CALCIUM 8.1 mg/dl (8.4-10.2); CARBON DIOXIDE 28 mmol/L (21-31); CHLORIDE 109 mmol/L (97-110); CREATININE 0.52 mg/dl (0.44-1.00); GLUCOSE 116 mg/dl (70-220); PHOSPHORUS 4.1 mg/dl (2.5-4.9); SODIUM 141 mmol/L (135-144)
[2018-02-23] MEDS: DEXTROSE 5%-0.9% NACL 1,000 ML IV (05:35)
[2018-02-23] MEDS: PANTOPRAZOLE 40 MG INJ IV (05:39)
[2018-02-23] MEDS: VALPROATE INJ 500 MG in SOD CHLORIDE 0.9% 50 ML IVPB ×3 (05:39→22:33)
[2018-02-23] MEDS: ACCU-CHEK XX ×5 (05:40→23:40)
[2018-02-23 05:48] LABS: TRIGLYCERIDES 261 mg/dl (0-149)
[2018-02-23] MEDS: PROPOFOL 100 ML IV ×3 (08:05→22:45)
[2018-02-23] MEDS: FUROSEMIDE 40 MG INJ IV (09:05)
[2018-02-23] MEDS: GENTAMICIN 0.1% 15 GM OINT TOP ×2 (09:05→20:34)
[2018-02-23] MEDS: ENOXAPARIN 30 MG/0.3 ML SYG SC ×2 (09:06→20:36)
[2018-02-23] MEDS: FLUCONAZOLE 200 MG (PMX) 100 ML IVPB (13:02)
[2018-02-23] MEDS: TPN 1,000 ML IV (13:02)
[2018-02-23] MEDS: FAT EMULSION 20% 250 ML IV (15:46)
[2018-02-23] MEDS: EPOETIN 10000 UNITS/ML (NON ESRD/NON ONCOLOGY) SC (15:47)
[2018-02-24] MEDS: FENTAnyl (DRIP) 1000 mcg/100mL 100 ML IV (01:02)
[2018-02-24] MEDS: DEXTROSE 5%-0.9% NACL 1,000 ML IV ×3 (05:20→22:00)
[2018-02-24] MEDS: VALPROATE INJ 500 MG in SOD CHLORIDE 0.9% 50 ML IVPB ×3 (05:35→22:50)
[2018-02-24] MEDS: PANTOPRAZOLE 40 MG INJ IV (05:35)
[2018-02-24] MEDS: ACCU-CHEK XX ×4 (05:44→23:47)
[2018-02-24 05:57] LABS: ANION GAP 8 (8-16); BLOOD UREA NITROGEN 12 mg/dl (7-20); CALCIUM 8.2 mg/dl (8.4-10.2); CARBON DIOXIDE 30 mmol/L (21-31); CHLORIDE 104 mmol/L (97-110); CREATININE 0.62 mg/dl (0.44-1.00); GLUCOSE 135 mg/dl (70-220); MAGNESIUM 1.8 mg/dl (1.7-2.5); PHOSPHORUS 3.5 mg/dl (2.5-4.9); POTASSIUM 3.5 mmol/L (3.5-5.1); SODIUM 138 mmol/L (135-144)
[2018-02-24] MEDS: TPN 1,000 ML IV (08:09)
[2018-02-24] MEDS: ENOXAPARIN 30 MG/0.3 ML SYG SC ×2 (08:10→20:54)
[2018-02-24] MEDS: GENTAMICIN 0.1% 15 GM OINT TOP ×2 (08:14→20:52)
[2018-02-24] MEDS: FUROSEMIDE 40 MG INJ IV (08:18)
[2018-02-24] MEDS: PROPOFOL 100 ML IV ×3 (08:58→22:51)
[2018-02-24] MEDS: FLUCONAZOLE 200 MG (PMX) 100 ML IVPB (12:26)
[2018-02-25] MEDS: FENTAnyl (DRIP) 1000 mcg/100mL 100 ML IV (00:35)
[2018-02-25] MEDS: PROPOFOL 100 ML IV ×3 (04:19→21:16)
[2018-02-25] MEDS: IOHEXOL 14.3 MG(I)/ML (ADULT) BTL PO (04:27)
[2018-02-25 05:25] LABS: ADD MAN DIFF? NO
[2018-02-25 05:26] LABS: WHITE BLOOD COUNT 6.7 10^3/ul (4.8-10.8)
[2018-02-25 05:26] LABS: BASOPHILS % 0.4 % (0.0-2.0); EOSINOPHILS # 0.2 10^3/ul (0.0-0.5); HEMATOCRIT 24.9 % (37.0-47.0); HEMOGLOBIN 7.8 g/dl (12.0-16.0); LYMPHOCYTES # 1.1 10^3/ul (0.8-2.9); LYMPHOCYTES % 16.5 % (15.0-51.0); MEAN CORPUSCULAR HEMOGLOBIN 29.5 pg (29.0-33.0); MEAN CORPUSCULAR HGB CONC 31.3 g/dl (32.0-37.0); MEAN CORPUSCULAR VOLUME 94.3 fl (82.0-101.0); MONOCYTE # 0.8 10^3/ul (0.3-0.9); MONOCYTES % 12.6 % (0.0-11.0); NEUTROPHIL # 4.2 10^3/ul (1.6-7.5); NEUTROPHILS % 63.5 % (39.0-77.0); PLATELET COUNT 413 10^3/UL (140-415); RED BLOOD COUNT 2.64 10^6/ul (4.20-5.40); RED CELL DISTRIBUTION WIDTH 17.7 % (11.5-14.5)
[2018-02-25] MEDS: VALPROATE INJ 500 MG in SOD CHLORIDE 0.9% 50 ML IVPB ×3 (06:10→21:11)
[2018-02-25] MEDS: PANTOPRAZOLE 40 MG INJ IV (06:10)
[2018-02-25] MEDS: TPN 1,000 ML IV (06:10)
[2018-02-25] MEDS: DEXTROSE 5%-0.9% NACL 1,000 ML IV (06:11)
[2018-02-25 06:14] LABS: ANION GAP 6 (8-16); BLOOD UREA NITROGEN 11 mg/dl (7-20); CALCIUM 8.4 mg/dl (8.4-10.2); CARBON DIOXIDE 32 mmol/L (21-31); CHLORIDE 106 mmol/L (97-110); CREATININE 0.63 mg/dl (0.44-1.00); GLUCOSE 178 mg/dl (70-220); PHOSPHORUS 3.7 mg/dl (2.5-4.9); POTASSIUM 3.2 mmol/L (3.5-5.1); SODIUM 141 mmol/L (135-144)
[2018-02-25] MEDS: ACCU-CHEK XX ×3 (06:31→18:04)
[2018-02-25] MEDS: FUROSEMIDE 40 MG INJ IV (08:09)
[2018-02-25] MEDS: GENTAMICIN 0.1% 15 GM OINT TOP ×2 (08:10→21:13)
[2018-02-25] MEDS: ENOXAPARIN 30 MG/0.3 ML SYG SC ×2 (08:11→21:13)
[2018-02-25] MEDS: IOHEXOL 300MG/ML 150 ML BTL (10:07)
[2018-02-25] MEDS: SOD CHLORIDE 0.9% 100 ML (10:08)
[2018-02-25] MEDS: POTASSIUM CHLORIDE 100 ML IVPB ×2 (10:42→12:21)
[2018-02-25] MEDS: FLUCONAZOLE 200 MG (PMX) 100 ML IVPB (12:21)
[2018-02-25] MEDS: morphine 2 MG INJ IV (21:12)
[2018-02-26] MEDS: TPN 1,000 ML IV ×2 (01:44→19:51)
[2018-02-26] MEDS: PROPOFOL 100 ML IV ×5 (01:48→19:51)
[2018-02-26 05:12] LABS: ADD MAN DIFF? NO
[2018-02-26 05:18] LABS: WHITE BLOOD COUNT 8.3 10^3/ul (4.8-10.8)
[2018-02-26 05:19] LABS: BASOPHILS % 0.5 % (0.0-2.0); EOSINOPHILS # 0.4 10^3/ul (0.0-0.5); HEMATOCRIT 24.8 % (37.0-47.0); HEMOGLOBIN 7.9 g/dl (12.0-16.0); LYMPHOCYTES # 1.2 10^3/ul (0.8-2.9); LYMPHOCYTES % 14.9 % (15.0-51.0); MEAN CORPUSCULAR HEMOGLOBIN 30.2 pg (29.0-33.0); MEAN CORPUSCULAR HGB CONC 31.9 g/dl (32.0-37.0); MEAN CORPUSCULAR VOLUME 94.7 fl (82.0-101.0); MEAN PLATELET VOLUME 10.7 fl (7.4-10.4); MONOCYTE # 1.2 10^3/ul (0.3-0.9); MONOCYTES % 14.5 % (0.0-11.0); NEUTROPHILS % 60.3 % (39.0-77.0); PLATELET COUNT 403 10^3/UL (140-415); RED BLOOD COUNT 2.62 10^6/ul (4.20-5.40); RED CELL DISTRIBUTION WIDTH 17.8 % (11.5-14.5)
[2018-02-26 06:01] LABS: ANION GAP 12 (8-16); BLOOD UREA NITROGEN 8 mg/dl (7-20); CALCIUM 7.7 mg/dl (8.4-10.2); CARBON DIOXIDE 28 mmol/L (21-31); CHLORIDE 102 mmol/L (97-110); CREATININE 0.55 mg/dl (0.44-1.00); MAGNESIUM 1.7 mg/dl (1.7-2.5); POTASSIUM 3.1 mmol/L (3.5-5.1); SODIUM 139 mmol/L (135-144)
[2018-02-26 06:06] LABS: GLUCOSE 469 mg/dl (70-220)
[2018-02-26] MEDS: ACCU-CHEK XX ×4 (06:36→17:11)
[2018-02-26] MEDS: VALPROATE INJ 500 MG in SOD CHLORIDE 0.9% 50 ML IVPB ×3 (06:36→21:01)
[2018-02-26] MEDS: PANTOPRAZOLE 40 MG INJ IV (06:36)
[2018-02-26] MEDS: DEXTROSE 5%-0.9% NACL 1,000 ML IV (06:36)
[2018-02-26 06:54] LABS: PHOSPHORUS 3.4 mg/dl (2.5-4.9)
[2018-02-26] MEDS: GENTAMICIN 0.1% 15 GM OINT TOP ×2 (09:00→21:01)
[2018-02-26] MEDS: FUROSEMIDE 40 MG INJ IV (10:21)
[2018-02-26] MEDS: ENOXAPARIN 30 MG/0.3 ML SYG SC ×2 (10:22→21:04)
[2018-02-26] MEDS: POTASSIUM CHLORIDE 50 ML IVPB ×3 (10:32→13:54)
[2018-02-26] MEDS: LIDOCAINE 1% (MDV) 10 ML INJ (12:44)
[2018-02-26] MEDS: FLUCONAZOLE 200 MG (PMX) 100 ML IVPB (13:54)
[2018-02-26] MEDS: FAT EMULSION 20% 250 ML IV (16:03)
[2018-02-26] MEDS: EPOETIN 10000 UNITS/ML (NON ESRD/NON ONCOLOGY) SC (16:04)
[2018-02-26] MEDS: MAGNESIUM SULFATE 2 GM/50 ML 50 ML IVPB (17:03)
[2018-02-27] MEDS: PROPOFOL 100 ML IV ×4 (02:47→18:35)
[2018-02-27] MEDS: PANTOPRAZOLE 40 MG INJ IV (05:05)
[2018-02-27] MEDS: ACCU-CHEK XX ×4 (05:06→18:05)
[2018-02-27] MEDS: VALPROATE INJ 500 MG in SOD CHLORIDE 0.9% 50 ML IVPB ×3 (05:06→21:28)
[2018-02-27 06:11] LABS: ADD MAN DIFF? NO
[2018-02-27 06:25] LABS: ABNORMAL IP MESSAGE 1; BASOPHILS % 0.3 % (0.0-2.0); EOSINOPHILS # 0.4 10^3/ul (0.0-0.5); EOSINOPHILS % 5.8 % (0.0-7.0); HEMATOCRIT 23.5 % (37.0-47.0); HEMOGLOBIN 7.1 g/dl (12.0-16.0); LYMPHOCYTES # 1.3 10^3/ul (0.8-2.9); MEAN CORPUSCULAR HEMOGLOBIN 28.5 pg (29.0-33.0); MEAN CORPUSCULAR HGB CONC 30.2 g/dl (32.0-37.0); MEAN CORPUSCULAR VOLUME 94.4 fl (82.0-101.0); MEAN PLATELET VOLUME 10.2 fl (7.4-10.4); MONOCYTES % 14.9 % (0.0-11.0); NEUTROPHIL # 3.5 10^3/ul (1.6-7.5); NEUTROPHILS % 52.6 % (39.0-77.0); PLATELET COUNT 372 10^3/UL (140-415); RED BLOOD COUNT 2.49 10^6/ul (4.20-5.40); RED CELL DISTRIBUTION WIDTH 18.6 % (11.5-14.5)
[2018-02-27 06:25] LABS: WHITE BLOOD COUNT 6.6 10^3/ul (4.8-10.8)
[2018-02-27 06:41] LABS: ANION GAP 8 (8-16); BLOOD UREA NITROGEN 9 mg/dl (7-20); CALCIUM 8.5 mg/dl (8.4-10.2); CARBON DIOXIDE 32 mmol/L (21-31); CHLORIDE 107 mmol/L (97-110); CREATININE 0.63 mg/dl (0.44-1.00); GLUCOSE 210 mg/dl (70-220); MAGNESIUM 2.1 mg/dl (1.7-2.5); POTASSIUM 3.8 mmol/L (3.5-5.1); SODIUM 143 mmol/L (135-144)
[2018-02-27 06:43] LABS: POSITIVE DIFF @See below
[2018-02-27 06:50] LABS: VALPROATE 45 ug/ml (50-100)
[2018-02-27 06:51] LABS: PREALBUMIN 8.5 mg/dl (17.6-36.0)
[2018-02-27 07:21] LABS: PHOSPHORUS 4.1 mg/dl (2.5-4.9)
[2018-02-27] MEDS: GENTAMICIN 0.1% 15 GM OINT TOP ×2 (08:00→20:30)
[2018-02-27] MEDS: FUROSEMIDE 40 MG INJ IV (08:00)
[2018-02-27] MEDS: ENOXAPARIN 30 MG/0.3 ML SYG SC ×2 (08:02→20:31)
[2018-02-27] MEDS: LEVOFLOXACIN 500MG/D5W (PMX) 100 ML IVPB (10:11)
[2018-02-27] MEDS: ALBUMIN HUMAN 25% 100 ML IV ×2 (11:43→18:29)
[2018-02-27] MEDS: PIPER-TAZO 3.375 GM IV (PMX) 100 ML IVPB ×2 (12:26→18:05)
[2018-02-27] MEDS: TPN 1,000 ML IV (17:10)
[2018-02-28] MEDS: PIPER-TAZO 3.375 GM IV (PMX) 100 ML IVPB ×4 (00:40→17:54)
[2018-02-28] MEDS: ACCU-CHEK XX ×4 (00:40→17:54)
[2018-02-28] MEDS: ALBUMIN HUMAN 25% 100 ML IV (02:43)
[2018-02-28] MEDS: PROPOFOL 100 ML IV (03:31)
[2018-02-28] MEDS: TPN 1,000 ML IV (04:26)
[2018-02-28] MEDS: VALPROATE INJ 500 MG in SOD CHLORIDE 0.9% 50 ML IVPB ×3 (05:18→22:00)
[2018-02-28] MEDS: PANTOPRAZOLE 40 MG INJ IV (05:18)
[2018-02-28 05:35] LABS: ABNORMAL IP MESSAGE 1; HEMATOCRIT 20.1 % (37.0-47.0); MEAN CORPUSCULAR HEMOGLOBIN 29.1 pg (29.0-33.0); MEAN CORPUSCULAR HGB CONC 30.8 g/dl (32.0-37.0); MEAN CORPUSCULAR VOLUME 94.4 fl (82.0-101.0); PLATELET COUNT 309 10^3/UL (140-415); RED BLOOD COUNT 2.13 10^6/ul (4.20-5.40); RED CELL DISTRIBUTION WIDTH 18.5 % (11.5-14.5)
[2018-02-28 05:35] LABS: WHITE BLOOD COUNT 5.2 10^3/ul (4.8-10.8)
[2018-02-28 05:42] LABS: POSITIVE DIFF @See below
[2018-02-28 05:45] LABS: ADD MAN DIFF? YES; HEMOGLOBIN 6.2 g/dl (12.0-16.0)
[2018-02-28 06:17] LABS: PHOSPHORUS 4.4 mg/dl (2.5-4.9)
[2018-02-28 06:17] LABS: ANION GAP 8 (8-16); BLOOD UREA NITROGEN 10 mg/dl (7-20); CARBON DIOXIDE 33 mmol/L (21-31); CHLORIDE 103 mmol/L (97-110); CREATININE 0.81 mg/dl (0.44-1.00); GLUCOSE 131 mg/dl (70-220); POTASSIUM 3.8 mmol/L (3.5-5.1); SODIUM 140 mmol/L (135-144)
[2018-02-28] MEDS: LEVOFLOXACIN 250MG/D5W (PMX) 50 ML IVPB (09:13)
[2018-02-28] MEDS: ENOXAPARIN 30 MG/0.3 ML SYG SC ×2 (09:14→22:01)
[2018-02-28] MEDS: GENTAMICIN 0.1% 15 GM OINT TOP ×2 (09:14→22:00)
[2018-02-28] MEDS: LORAZEPAM 2 MG INJ IV ×3 (09:20→14:31)
[2018-02-28 09:23] LABS: ANISOCYTOSIS 1+ (0-0); BAND NEUTROPHILS #M 1.3 10^3/ul (0.0-0.6); BAND NEUTROPHILS % (M) 26 % (0-4); BASOPHILS % (M) 1 % (0-2); EOSINOPHILS % (M) 3 % (0-7); HYPOCHROMASIA 1+ (0-0); LYMPHOCYTES #M 0.6 10^3/ul (0.8-2.9); LYMPHOCYTES % (M) 12 % (15-51); MICROCYTOSIS 1+ (0-0); MONOCYTE #M 0.8 10^3/ul (0.3-0.9); MONOCYTES % (M) 16 % (0-11); MYELOCYTES #M 0.1 10^3/ul (0.0-0.0); MYELOCYTES % (M) 3 % (0-0); PLATELET ESTIMATE NORMAL; POLYCHROMASIA 2+ (0-0); SEG NEUT #M 2.1 10^3/ul (1.6-7.5); SEGMENTED NEUTROPHILS (M) % 39 % (39-77); SMUDGE%M 9 % (0-0)
[2018-02-28 10:46] LABS: IMMEDIATE SPIN CROSSMATCH 1 2
[2018-02-28] MEDS: FAT EMULSION 20% 250 ML IV (16:36)
[2018-02-28] MEDS: EPOETIN 10000 UNITS/ML (NON ESRD/NON ONCOLOGY) SC (16:37)
[2018-03-01] MEDS: ACCU-CHEK XX ×5 (00:37→23:18)
[2018-03-01] MEDS: PIPER-TAZO 3.375 GM IV (PMX) 100 ML IVPB ×5 (00:37→23:15)
[2018-03-01] MEDS: PANTOPRAZOLE 40 MG INJ IV (05:24)
[2018-03-01] MEDS: VALPROATE INJ 500 MG in SOD CHLORIDE 0.9% 50 ML IVPB ×3 (05:24→23:14)
[2018-03-01] MEDS: TPN 1,000 ML IV (05:24)
[2018-03-01 05:33] LABS: WHITE BLOOD COUNT 5.7 10^3/ul (4.8-10.8)
[2018-03-01 05:33] LABS: ABNORMAL IP MESSAGE 1; HEMATOCRIT 25.1 % (37.0-47.0); HEMOGLOBIN 8.1 g/dl (12.0-16.0); MEAN CORPUSCULAR HEMOGLOBIN 30.5 pg (29.0-33.0); MEAN CORPUSCULAR HGB CONC 32.3 g/dl (32.0-37.0); MEAN CORPUSCULAR VOLUME 94.4 fl (82.0-101.0); MEAN PLATELET VOLUME 10.3 fl (7.4-10.4); PLATELET COUNT 252 10^3/UL (140-415); RED BLOOD COUNT 2.66 10^6/ul (4.20-5.40); RED CELL DISTRIBUTION WIDTH 17.7 % (11.5-14.5)
[2018-03-01 05:35] LABS: ADD MAN DIFF? YES; POSITIVE DIFF @See below
[2018-03-01] MEDS: morphine 2 MG INJ IV (05:47)
[2018-03-01 05:51] LABS: INR 1.19; PROTIME 15.3 Sec (11.9-14.9); PT RATIO 1.2
[2018-03-01 05:57] LABS: ALBUMIN 2.5 g/dl (3.3-4.9); ALBUMIN/GLOBULIN RATIO 0.69; ALKALINE PHOSPHATASE 84 IU/L (42-121); ANION GAP 8 (8-16); ASPARTATE AMINO TRANSFERASE 13 IU/L (15-46); BILIRUBIN,INDIRECT 0.2 mg/dl (0-1.1); BILIRUBIN,TOTAL 0.2 mg/dl (0.2-1.3); BLOOD UREA NITROGEN 14 mg/dl (7-20); CALCIUM 8.7 mg/dl (8.4-10.2); CARBON DIOXIDE 29 mmol/L (21-31); CHLORIDE 107 mmol/L (97-110); CREATININE 0.85 mg/dl (0.44-1.00); GLUCOSE 159 mg/dl (70-220); POTASSIUM 4.2 mmol/L (3.5-5.1); SODIUM 140 mmol/L (135-144); TOTAL PROTEIN 6.1 g/dl (6.1-8.1)
[2018-03-01 05:59] LABS: ALANINE AMINOTRANSFERASE < 6 IU/L (13-69)
[2018-03-01 06:27] LABS: PHOSPHORUS 4.1 mg/dl (2.5-4.9)
[2018-03-01 06:27] LABS: MAGNESIUM 2.1 mg/dl (1.7-2.5)
[2018-03-01 07:10] LABS: ANISOCYTOSIS 1+ (0-0); BAND NEUTROPHILS #M 1.8 10^3/ul (0.0-0.6); BAND NEUTROPHILS % (M) 32 % (0-4); EOSINOPHILS % (M) 8 % (0-7); ERYTHROBLAST% (NRBC) (M) 1 % (0-0); LYMPHOCYTES #M 0.5 10^3/ul (0.8-2.9); LYMPHOCYTES % (M) 10 % (15-51); METAMYELOCYTES %M 1 % (0-0); MONOCYTE #M 0.4 10^3/ul (0.3-0.9); MONOCYTES % (M) 8 % (0-11); MYELOCYTES #M 0.1 10^3/ul (0.0-0.0); MYELOCYTES % (M) 3 % (0-0); PLATELET ESTIMATE NORMAL; POLYCHROMASIA 1+ (0-0); SEG NEUT #M 2.3 10^3/ul (1.6-7.5); SEGMENTED NEUTROPHILS (M) % 38 % (39-77); SMUDGE%M 13 % (0-0)
[2018-03-01] MEDS: PROPOFOL 100 ML IV ×2 (07:34→20:00)
[2018-03-01] MEDS: GENTAMICIN 0.1% 15 GM OINT TOP ×2 (08:35→23:14)
[2018-03-01] MEDS: LORAZEPAM 2 MG INJ IV ×3 (08:36→23:14)
[2018-03-01] MEDS: LEVOFLOXACIN 250MG/D5W (PMX) 50 ML IVPB (08:36)
[2018-03-01] MEDS: ENOXAPARIN 30 MG/0.3 ML SYG SC ×2 (08:36→23:15)
[2018-03-01] MEDS: SODIUM HYPOCHLORITE (1/40) 1 APPLIC BTL IRR (12:50)
[2018-03-02] MEDS: TPN 1,000 ML IV ×2 (03:37→23:39)
[2018-03-02 05:26] LABS: ANION GAP 8 (8-16); BLOOD UREA NITROGEN 17 mg/dl (7-20); CALCIUM 8.5 mg/dl (8.4-10.2); CARBON DIOXIDE 26 mmol/L (21-31); CHLORIDE 108 mmol/L (97-110); MAGNESIUM 2.3 mg/dl (1.7-2.5); PHOSPHORUS 4.8 mg/dl (2.5-4.9); SODIUM 135 mmol/L (135-144)
[2018-03-02 05:31] LABS: POTASSIUM 6.8 mmol/L (3.5-5.1)
[2018-03-02 05:32] LABS: GLUCOSE 477 mg/dl (70-220)
[2018-03-02] MEDS: PIPER-TAZO 3.375 GM IV (PMX) 100 ML IVPB ×3 (05:34→17:50)
[2018-03-02] MEDS: PANTOPRAZOLE 40 MG INJ IV (05:34)
[2018-03-02] MEDS: VALPROATE INJ 500 MG in SOD CHLORIDE 0.9% 50 ML IVPB ×3 (05:35→21:18)
[2018-03-02] MEDS: ACCU-CHEK XX ×3 (05:44→18:07)
[2018-03-02 06:34] LABS: ANION GAP 9 (8-16); BLOOD UREA NITROGEN 18 mg/dl (7-20); CALCIUM 8.9 mg/dl (8.4-10.2); CARBON DIOXIDE 27 mmol/L (21-31); CHLORIDE 108 mmol/L (97-110); CREATININE 0.85 mg/dl (0.44-1.00); GLUCOSE 138 mg/dl (70-220); POTASSIUM 4.8 mmol/L (3.5-5.1); SODIUM 139 mmol/L (135-144)
[2018-03-02] MEDS: PROPOFOL 100 ML IV ×2 (08:00→19:47)
[2018-03-02] MEDS: SODIUM HYPOCHLORITE (1/40) 1 APPLIC BTL IRR (09:56)
[2018-03-02] MEDS: LEVOFLOXACIN 250MG/D5W (PMX) 50 ML IVPB (09:56)
[2018-03-02] MEDS: GENTAMICIN 0.1% 15 GM OINT TOP ×2 (09:57→20:44)
[2018-03-02] MEDS: ENOXAPARIN 30 MG/0.3 ML SYG SC ×2 (09:59→20:45)
[2018-03-02] MEDS: FAT EMULSION 20% 250 ML IV (17:07)
[2018-03-02] MEDS: EPOETIN 10000 UNITS/ML (NON ESRD/NON ONCOLOGY) SC (17:09)
[2018-03-03] MEDS: ACCU-CHEK XX ×4 (00:17→21:36)
[2018-03-03] MEDS: PIPER-TAZO 3.375 GM IV (PMX) 100 ML IVPB ×5 (00:17→23:34)
[2018-03-03 05:04] LABS: WHITE BLOOD COUNT 5.2 10^3/ul (4.8-10.8)
[2018-03-03 05:04] LABS: ABNORMAL IP MESSAGE 1; HEMATOCRIT 28.3 % (37.0-47.0); HEMOGLOBIN 8.8 g/dl (12.0-16.0); MEAN CORPUSCULAR HEMOGLOBIN 29.3 pg (29.0-33.0); MEAN CORPUSCULAR HGB CONC 31.1 g/dl (32.0-37.0); MEAN CORPUSCULAR VOLUME 94.3 fl (82.0-101.0); MEAN PLATELET VOLUME 10.2 fl (7.4-10.4); PLATELET COUNT 284 10^3/UL (140-415); RED CELL DISTRIBUTION WIDTH 17.2 % (11.5-14.5)
[2018-03-03 05:05] LABS: ADD MAN DIFF? YES; POSITIVE DIFF @See below
[2018-03-03 05:25] LABS: ANION GAP 11 (8-16); BLOOD UREA NITROGEN 19 mg/dl (7-20); CARBON DIOXIDE 28 mmol/L (21-31); CHLORIDE 105 mmol/L (97-110); CREATININE 0.82 mg/dl (0.44-1.00); GLUCOSE 156 mg/dl (70-220); MAGNESIUM 2.1 mg/dl (1.7-2.5); POTASSIUM 4.7 mmol/L (3.5-5.1); SODIUM 139 mmol/L (135-144)
[2018-03-03] MEDS: PANTOPRAZOLE 40 MG INJ IV (05:50)
[2018-03-03] MEDS: VALPROATE INJ 500 MG in SOD CHLORIDE 0.9% 50 ML IVPB ×3 (06:25→21:36)
[2018-03-03] MEDS: PROPOFOL 100 ML IV ×2 (07:11→19:25)
[2018-03-03 07:53] LABS: ANISOCYTOSIS 1+ (0-0); BAND NEUTROPHILS #M 0.6 10^3/ul (0.0-0.6); BAND NEUTROPHILS % (M) 12 % (0-4); BASOPHILS % (M) 1 % (0-2); EOSINOPHILS % (M) 11 % (0-7); GIANT THROMBO% (M) 1 % (0-0); LYMPHOCYTES % (M) 20 % (15-51); METAMYELOCYTES #M 0.4 10^3/ul (0.0-0.0); METAMYELOCYTES %M 8 % (0-0); MONOCYTE #M 0.2 10^3/ul (0.3-0.9); MONOCYTES % (M) 4 % (0-11); MYELOCYTES #M 0.1 10^3/ul (0.0-0.0); MYELOCYTES % (M) 3 % (0-0); PLATELET ESTIMATE NORMAL; POLYCHROMASIA 2+ (0-0); PROMYELOCYTES % (M) 1 % (0-0); SEG NEUT #M 2.1 10^3/ul (1.6-7.5); SEGMENTED NEUTROPHILS (M) % 40 % (39-77)
[2018-03-03 08:07] LABS: PHOSPHORUS 4.1 mg/dl (2.5-4.9)
[2018-03-03] MEDS: SODIUM HYPOCHLORITE (1/40) 1 APPLIC BTL IRR ×2 (08:36→18:06)
[2018-03-03] MEDS: GENTAMICIN 0.1% 15 GM OINT TOP ×2 (08:36→21:36)
[2018-03-03] MEDS: LEVOFLOXACIN 250MG/D5W (PMX) 50 ML IVPB (08:48)
[2018-03-03] MEDS: LORAZEPAM 2 MG INJ IV ×3 (08:48→23:33)
[2018-03-03] MEDS: ENOXAPARIN 30 MG/0.3 ML SYG SC ×2 (08:48→21:35)
[2018-03-03] MEDS: FENTAnyl (DRIP) 1000 mcg/100mL 100 ML IV ×2 (09:38→21:35)
[2018-03-03] MEDS: TPN 1,000 ML IV (15:24)
[2018-03-04 02:44] LABS: ANION GAP 10 (8-16); BLOOD UREA NITROGEN 21 mg/dl (7-20); CALCIUM 9.1 mg/dl (8.4-10.2); CARBON DIOXIDE 26 mmol/L (21-31); CHLORIDE 106 mmol/L (97-110); GLUCOSE 133 mg/dl (70-220); POTASSIUM 4.8 mmol/L (3.5-5.1); SODIUM 137 mmol/L (135-144)
[2018-03-04] MEDS: PANTOPRAZOLE 40 MG INJ IV (05:48)
[2018-03-04] MEDS: PIPER-TAZO 3.375 GM IV (PMX) 100 ML IVPB ×3 (05:49→17:45)
[2018-03-04 05:53] LABS: ADD MAN DIFF? NO
[2018-03-04 05:59] LABS: WHITE BLOOD COUNT 11.2 10^3/ul (4.8-10.8)
[2018-03-04 05:59] LABS: ABNORMAL IP MESSAGE 1; BASOPHIL # 0.2 10^3/ul (0.0-0.1); BASOPHILS % 1.3 % (0.0-2.0); EOSINOPHILS # 0.8 10^3/ul (0.0-0.5); HEMATOCRIT 31.4 % (37.0-47.0); HEMOGLOBIN 9.6 g/dl (12.0-16.0); LYMPHOCYTES % 17.7 % (15.0-51.0); MEAN CORPUSCULAR HEMOGLOBIN 28.9 pg (29.0-33.0); MEAN CORPUSCULAR HGB CONC 30.6 g/dl (32.0-37.0); MEAN CORPUSCULAR VOLUME 94.6 fl (82.0-101.0); MEAN PLATELET VOLUME 10.5 fl (7.4-10.4); MONOCYTE # 1.5 10^3/ul (0.3-0.9); NEUTROPHILS % 53.4 % (39.0-77.0); NUCLEATED RED BLOOD CELLS% 0.4 /100WBC (0.0-0.0); PLATELET COUNT 465 10^3/UL (140-415); RED BLOOD COUNT 3.32 10^6/ul (4.20-5.40); RED CELL DISTRIBUTION WIDTH 17.3 % (11.5-14.5)
[2018-03-04 06:02] LABS: POSITIVE DIFF @See below
[2018-03-04 06:16] LABS: ANION GAP 10 (8-16); BLOOD UREA NITROGEN 22 mg/dl (7-20); CALCIUM 8.9 mg/dl (8.4-10.2); CARBON DIOXIDE 25 mmol/L (21-31); CHLORIDE 107 mmol/L (97-110); CREATININE 0.85 mg/dl (0.44-1.00); GLUCOSE 158 mg/dl (70-220); POTASSIUM 4.6 mmol/L (3.5-5.1); SODIUM 137 mmol/L (135-144)
[2018-03-04] MEDS: VALPROATE INJ 500 MG in SOD CHLORIDE 0.9% 50 ML IVPB ×3 (06:32→21:39)
[2018-03-04] MEDS: PROPOFOL 100 ML IV ×2 (07:36→20:00)
[2018-03-04] MEDS: SODIUM HYPOCHLORITE (1/40) 1 APPLIC BTL IRR (08:05)
[2018-03-04] MEDS: GENTAMICIN 0.1% 15 GM OINT TOP ×2 (08:05→21:35)
[2018-03-04] MEDS: ACCU-CHEK XX ×2 (08:05→21:35)
[2018-03-04] MEDS: ENOXAPARIN 30 MG/0.3 ML SYG SC ×2 (08:07→21:38)
[2018-03-04 08:42] LABS: ANISOCYTOSIS 1+ (0-0); BAND NEUTROPHILS #M 1.5 10^3/ul (0.0-0.6); BAND NEUTROPHILS % (M) 14 % (0-4); EOSINOPHILS % (M) 4 % (0-7); GIANT THROMBO% (M) 1 % (0-0); LYMPHOCYTES #M 1.4 10^3/ul (0.8-2.9); LYMPHOCYTES % (M) 13 % (15-51); MONOCYTE #M 1.2 10^3/ul (0.3-0.9); MONOCYTES % (M) 11 % (0-11); MYELOCYTES #M 0.4 10^3/ul (0.0-0.0); MYELOCYTES % (M) 4 % (0-0); PLATELET ESTIMATE INCREASED; POIKILOCYTOSIS 1+ (0-0); POLYCHROMASIA 1+ (0-0); SEG NEUT #M 6.2 10^3/ul (1.6-7.5); SEGMENTED NEUTROPHILS (M) % 54 % (39-77)
[2018-03-04] MEDS: LEVOFLOXACIN 250MG/D5W (PMX) 50 ML IVPB (08:46)
[2018-03-04] MEDS: LEVALBUTEROL (HFA) 15 GM INHALER INH ×3 (09:30→23:34)
[2018-03-04] MEDS: TPN 1,000 ML IV (11:09)
[2018-03-04] MEDS: FENTAnyl (DRIP) 1000 mcg/100mL 100 ML IV (17:52)
[2018-03-05] MEDS: PIPER-TAZO 3.375 GM IV (PMX) 100 ML IVPB ×5 (00:22→23:32)
[2018-03-05] MEDS: PANTOPRAZOLE 40 MG INJ IV (05:25)
[2018-03-05] MEDS: VALPROATE INJ 500 MG in SOD CHLORIDE 0.9% 50 ML IVPB ×3 (05:25→21:24)
[2018-03-05 06:39] LABS: ANION GAP 11 (8-16); BLOOD UREA NITROGEN 22 mg/dl (7-20); CALCIUM 8.7 mg/dl (8.4-10.2); CARBON DIOXIDE 25 mmol/L (21-31); CHLORIDE 106 mmol/L (97-110); CREATININE 0.76 mg/dl (0.44-1.00); GLUCOSE 147 mg/dl (70-220); MAGNESIUM 1.9 mg/dl (1.7-2.5); PHOSPHORUS 4.1 mg/dl (2.5-4.9); POTASSIUM 4.7 mmol/L (3.5-5.1); SODIUM 137 mmol/L (135-144)
[2018-03-05 07:14] LABS: ADD MAN DIFF? NO
[2018-03-05 07:15] LABS: ABNORMAL IP MESSAGE 1; BASOPHIL # 0.1 10^3/ul (0.0-0.1); BASOPHILS % 1.2 % (0.0-2.0); EOSINOPHILS # 0.5 10^3/ul (0.0-0.5); EOSINOPHILS % 5.5 % (0.0-7.0); HEMOGLOBIN 9.9 g/dl (12.0-16.0); LYMPHOCYTES # 1.8 10^3/ul (0.8-2.9); LYMPHOCYTES % 20.5 % (15.0-51.0); MEAN CORPUSCULAR HEMOGLOBIN 29.7 pg (29.0-33.0); MEAN CORPUSCULAR HGB CONC 30.9 g/dl (32.0-37.0); MEAN CORPUSCULAR VOLUME 96.1 fl (82.0-101.0); MEAN PLATELET VOLUME 10.2 fl (7.4-10.4); MONOCYTES % 11.1 % (0.0-11.0); NEUTROPHILS % 56.2 % (39.0-77.0); NUCLEATED RED BLOOD CELLS% 0.3 /100WBC (0.0-0.0); PLATELET COUNT 454 10^3/UL (140-415); RED BLOOD COUNT 3.33 10^6/ul (4.20-5.40); RED CELL DISTRIBUTION WIDTH 17.1 % (11.5-14.5)
[2018-03-05 07:15] LABS: WHITE BLOOD COUNT 8.9 10^3/ul (4.8-10.8)
[2018-03-05 07:16] LABS: POSITIVE DIFF @See below
[2018-03-05] MEDS: PROPOFOL 100 ML IV ×2 (07:21→19:33)
[2018-03-05] MEDS: LEVALBUTEROL (HFA) 15 GM INHALER INH ×2 (07:34→15:26)
[2018-03-05] MEDS: ACCU-CHEK XX ×2 (08:50→21:29)
[2018-03-05] MEDS: TPN 1,000 ML IV (08:51)
[2018-03-05] MEDS: GENTAMICIN 0.1% 15 GM OINT TOP ×2 (08:51→21:23)
[2018-03-05] MEDS: SODIUM HYPOCHLORITE (1/40) 1 APPLIC BTL IRR (08:51)
[2018-03-05] MEDS: ENOXAPARIN 30 MG/0.3 ML SYG SC ×2 (08:53→21:25)
[2018-03-05] MEDS: LEVOFLOXACIN 250MG/D5W (PMX) 50 ML IVPB (08:54)
[2018-03-05] MEDS: LORAZEPAM 2 MG INJ IV ×3 (09:13→23:10)
[2018-03-05 11:23] LABS: ADD UMIC YES; UR ASCORBIC ACID NEGATIVE (NEGATIVE); UR BACTERIA FEW /HPF (NONE SEEN); UR BILIRUBIN (Dip) NEGATIVE (NEGATIVE); UR BLOOD (Dip) 3+ mg/dL (NEGATIVE); UR BUDDING YEAST FEW /HPF (NONE SEEN); UR CLARITY CLEAR (CLEAR); UR COLOR YELLOW (YELLOW); UR GLUCOSE (Dip) NEGATIVE (NEGATIVE); UR KETONES (Dip) NEGATIVE (NEGATIVE); UR LEUKOCYTE ESTERASE (Dip) NEGATIVE Leu/ul (NEGATIVE); UR MUCUS FEW /HPF (NONE SEEN); UR NITRITE (Dip) NEGATIVE (NEGATIVE); UR RBC 168 /HPF (0-5); UR SPECIFIC GRAVITY (Dip) 1.015 (1.003-1.030); UR TOTAL PROTEIN (Dip) 1+ mg/dl (NEGATIVE); UR UROBILINOGEN (Dip) NEGATIVE (NEGATIVE); UR WBC 9 /HPF (0-5)
[2018-03-05] MEDS: FENTAnyl (DRIP) 1000 mcg/100mL 100 ML IV (12:02)
[2018-03-05] MEDS: IOHEXOL 14.3 MG(I)/ML (ADULT) BTL PO (13:36)
[2018-03-05] MEDS: IODIXANOL LOCM 100 ML BTL (16:28)
[2018-03-05] MEDS: SOD CHLORIDE 0.9% 100 ML (16:28)
[2018-03-05] MEDS: FAT EMULSION 20% 250 ML IV (16:54)
[2018-03-05] MEDS: EPOETIN 10000 UNITS/ML (NON ESRD/NON ONCOLOGY) SC (17:37)
[2018-03-06] MEDS: LEVALBUTEROL (HFA) 15 GM INHALER INH ×3 (01:47→15:08)
[2018-03-06] MEDS: TPN 1,000 ML IV ×2 (04:06→21:58)
[2018-03-06 05:13] LABS: ADD MAN DIFF? NO
[2018-03-06 05:20] LABS: WHITE BLOOD COUNT 6.4 10^3/ul (4.8-10.8)
[2018-03-06 05:20] LABS: BASOPHIL # 0.1 10^3/ul (0.0-0.1); BASOPHILS % 0.8 % (0.0-2.0); EOSINOPHILS # 0.7 10^3/ul (0.0-0.5); HEMATOCRIT 29.3 % (37.0-47.0); HEMOGLOBIN 9.2 g/dl (12.0-16.0); LYMPHOCYTES # 1.3 10^3/ul (0.8-2.9); LYMPHOCYTES % 20.8 % (15.0-51.0); MEAN CORPUSCULAR HEMOGLOBIN 29.9 pg (29.0-33.0); MEAN CORPUSCULAR HGB CONC 31.4 g/dl (32.0-37.0); MEAN CORPUSCULAR VOLUME 95.1 fl (82.0-101.0); MEAN PLATELET VOLUME 9.8 fl (7.4-10.4); MONOCYTE # 0.8 10^3/ul (0.3-0.9); MONOCYTES % 12.4 % (0.0-11.0); NEUTROPHIL # 3.3 10^3/ul (1.6-7.5); NEUTROPHILS % 50.9 % (39.0-77.0); NUCLEATED RED BLOOD CELLS% 0.3 /100WBC (0.0-0.0); PLATELET COUNT 404 10^3/UL (140-415); RED BLOOD COUNT 3.08 10^6/ul (4.20-5.40); RED CELL DISTRIBUTION WIDTH 17.2 % (11.5-14.5)
[2018-03-06] MEDS: PANTOPRAZOLE 40 MG INJ IV (05:37)
[2018-03-06] MEDS: VALPROATE INJ 500 MG in SOD CHLORIDE 0.9% 50 ML IVPB ×3 (05:37→21:12)
[2018-03-06] MEDS: PIPER-TAZO 3.375 GM IV (PMX) 100 ML IVPB ×3 (05:38→18:29)
[2018-03-06 06:15] LABS: TRIGLYCERIDES 306 mg/dl (0-149)
[2018-03-06 06:27] LABS: ALBUMIN 2.7 g/dl (3.3-4.9); ALBUMIN/GLOBULIN RATIO 0.69; ALKALINE PHOSPHATASE 96 IU/L (42-121); ANION GAP 10 (8-16); ASPARTATE AMINO TRANSFERASE 21 IU/L (15-46); BILIRUBIN,INDIRECT 0.2 mg/dl (0-1.1); BILIRUBIN,TOTAL 0.2 mg/dl (0.2-1.3); BLOOD UREA NITROGEN 18 mg/dl (7-20); CALCIUM 8.9 mg/dl (8.4-10.2); CARBON DIOXIDE 24 mmol/L (21-31); CHLORIDE 108 mmol/L (97-110); CREATININE 0.69 mg/dl (0.44-1.00); GLUCOSE 131 mg/dl (70-220); POTASSIUM 4.5 mmol/L (3.5-5.1); SODIUM 137 mmol/L (135-144); TOTAL PROTEIN 6.6 g/dl (6.1-8.1)
[2018-03-06 06:30] LABS: ALANINE AMINOTRANSFERASE < 6 IU/L (13-69)
[2018-03-06 06:33] LABS: PHOSPHORUS 3.7 mg/dl (2.5-4.9)
[2018-03-06 06:33] LABS: MAGNESIUM 1.8 mg/dl (1.7-2.5)
[2018-03-06] MEDS: PROPOFOL 100 ML IV ×2 (08:00→19:30)
[2018-03-06] MEDS: LORAZEPAM 2 MG INJ IV ×2 (09:05→19:42)
[2018-03-06] MEDS: LEVOFLOXACIN 250MG/D5W (PMX) 50 ML IVPB (09:07)
[2018-03-06] MEDS: ENOXAPARIN 30 MG/0.3 ML SYG SC ×2 (09:09→21:03)
[2018-03-06] MEDS: SODIUM HYPOCHLORITE (1/40) 1 APPLIC BTL IRR (09:35)
[2018-03-06] MEDS: GENTAMICIN 0.1% 15 GM OINT TOP ×2 (09:35→21:02)
[2018-03-06] MEDS: ACCU-CHEK XX ×2 (09:36→21:13)
[2018-03-06] MEDS: FENTAnyl (DRIP) 1000 mcg/100mL 100 ML IV (12:22)
[2018-03-07] MEDS: PIPER-TAZO 3.375 GM IV (PMX) 100 ML IVPB ×4 (00:19→18:18)
[2018-03-07] MEDS: LEVALBUTEROL (HFA) 15 GM INHALER INH ×4 (00:20→23:07)
[2018-03-07] MEDS: FENTAnyl (DRIP) 1000 mcg/100mL 100 ML IV ×2 (02:30→18:40)
[2018-03-07] MEDS: LORAZEPAM 2 MG INJ IV ×3 (02:34→13:28)
[2018-03-07 05:06] LABS: ADD MAN DIFF? NO
[2018-03-07 05:09] LABS: BASOPHILS % 0.7 % (0.0-2.0); EOSINOPHILS # 0.8 10^3/ul (0.0-0.5); EOSINOPHILS % 12.6 % (0.0-7.0); HEMATOCRIT 27.7 % (37.0-47.0); HEMOGLOBIN 8.7 g/dl (12.0-16.0); LYMPHOCYTES # 1.4 10^3/ul (0.8-2.9); LYMPHOCYTES % 22.9 % (15.0-51.0); MEAN CORPUSCULAR HEMOGLOBIN 29.9 pg (29.0-33.0); MEAN CORPUSCULAR HGB CONC 31.4 g/dl (32.0-37.0); MEAN CORPUSCULAR VOLUME 95.2 fl (82.0-101.0); MONOCYTE # 0.7 10^3/ul (0.3-0.9); MONOCYTES % 12.2 % (0.0-11.0); NEUTROPHIL # 2.9 10^3/ul (1.6-7.5); NEUTROPHILS % 48.4 % (39.0-77.0); PLATELET COUNT 372 10^3/UL (140-415); RED BLOOD COUNT 2.91 10^6/ul (4.20-5.40); RED CELL DISTRIBUTION WIDTH 17.2 % (11.5-14.5)
[2018-03-07] MEDS: VALPROATE INJ 500 MG in SOD CHLORIDE 0.9% 50 ML IVPB ×3 (05:29→21:32)
[2018-03-07] MEDS: PANTOPRAZOLE 40 MG INJ IV (05:29)
[2018-03-07 05:44] LABS: PREALBUMIN 12.4 mg/dl (17.6-36.0)
[2018-03-07 05:45] LABS: ANION GAP 12 (8-16); BLOOD UREA NITROGEN 18 mg/dl (7-20); CALCIUM 8.8 mg/dl (8.4-10.2); CARBON DIOXIDE 25 mmol/L (21-31); CHLORIDE 108 mmol/L (97-110); CREATININE 0.66 mg/dl (0.44-1.00); GLUCOSE 117 mg/dl (70-220); MAGNESIUM 1.7 mg/dl (1.7-2.5); PHOSPHORUS 3.9 mg/dl (2.5-4.9); POTASSIUM 4.7 mmol/L (3.5-5.1); SODIUM 140 mmol/L (135-144)
[2018-03-07] MEDS: PROPOFOL 100 ML IV ×2 (08:00→19:35)
[2018-03-07] MEDS: ACCU-CHEK XX ×2 (09:00→21:28)
[2018-03-07] MEDS: LEVOFLOXACIN 250MG/D5W (PMX) 50 ML IVPB (09:16)
[2018-03-07] MEDS: GENTAMICIN 0.1% 15 GM OINT TOP ×2 (09:17→21:28)
[2018-03-07] MEDS: SODIUM HYPOCHLORITE (1/40) 1 APPLIC BTL IRR (09:17)
[2018-03-07] MEDS: ENOXAPARIN 30 MG/0.3 ML SYG SC ×2 (09:19→21:31)
[2018-03-07] MEDS: MAGNESIUM SULFATE 2 GM/50 ML 50 ML IVPB (11:30)
[2018-03-07] MEDS: FAT EMULSION 20% 250 ML IV (16:10)
[2018-03-07] MEDS: TPN 1,000 ML IV (17:59)
[2018-03-07] MEDS: EPOETIN 10000 UNITS/ML (NON ESRD/NON ONCOLOGY) SC (17:59)
[2018-03-08] MEDS: PIPER-TAZO 3.375 GM IV (PMX) 100 ML IVPB ×5 (00:11→23:56)
[2018-03-08 05:00] LABS: ADD MAN DIFF? NO
[2018-03-08 05:07] LABS: WHITE BLOOD COUNT 5.4 10^3/ul (4.8-10.8)
[2018-03-08 05:07] LABS: BASOPHIL # 0.1 10^3/ul (0.0-0.1); BASOPHILS % 0.9 % (0.0-2.0); EOSINOPHILS # 0.6 10^3/ul (0.0-0.5); EOSINOPHILS % 11.9 % (0.0-7.0); HEMATOCRIT 27.8 % (37.0-47.0); LYMPHOCYTES # 1.4 10^3/ul (0.8-2.9); LYMPHOCYTES % 26.3 % (15.0-51.0); MEAN CORPUSCULAR HEMOGLOBIN 30.4 pg (29.0-33.0); MEAN CORPUSCULAR HGB CONC 32.4 g/dl (32.0-37.0); MEAN CORPUSCULAR VOLUME 93.9 fl (82.0-101.0); MEAN PLATELET VOLUME 10.2 fl (7.4-10.4); MONOCYTE # 0.6 10^3/ul (0.3-0.9); MONOCYTES % 11.3 % (0.0-11.0); NEUTROPHIL # 2.5 10^3/ul (1.6-7.5); NEUTROPHILS % 46.5 % (39.0-77.0); PLATELET COUNT 423 10^3/UL (140-415); RED BLOOD COUNT 2.96 10^6/ul (4.20-5.40); RED CELL DISTRIBUTION WIDTH 17.5 % (11.5-14.5)
[2018-03-08 05:28] LABS: PHOSPHORUS 3.6 mg/dl (2.5-4.9)
[2018-03-08 05:28] LABS: MAGNESIUM 1.7 mg/dl (1.7-2.5)
[2018-03-08 05:37] LABS: ALANINE AMINOTRANSFERASE 8 IU/L (13-69); ALBUMIN 2.5 g/dl (3.3-4.9); ALBUMIN/GLOBULIN RATIO 0.67; ALKALINE PHOSPHATASE 92 IU/L (42-121); ANION GAP 9 (8-16); ASPARTATE AMINO TRANSFERASE 14 IU/L (15-46); BLOOD UREA NITROGEN 17 mg/dl (7-20); CARBON DIOXIDE 28 mmol/L (21-31); CHLORIDE 105 mmol/L (97-110); CREATININE 0.66 mg/dl (0.44-1.00); GLUCOSE 118 mg/dl (70-220); POTASSIUM 4.8 mmol/L (3.5-5.1); SODIUM 137 mmol/L (135-144); TOTAL PROTEIN 6.2 g/dl (6.1-8.1)
[2018-03-08] MEDS: PANTOPRAZOLE 40 MG INJ IV (05:43)
[2018-03-08] MEDS: VALPROATE INJ 500 MG in SOD CHLORIDE 0.9% 50 ML IVPB ×3 (06:34→22:16)
[2018-03-08] MEDS: LEVALBUTEROL (HFA) 15 GM INHALER INH ×2 (07:36→15:53)
[2018-03-08] MEDS: PROPOFOL 100 ML IV ×2 (08:00→20:00)
[2018-03-08] MEDS: LEVOFLOXACIN 250MG/D5W (PMX) 50 ML IVPB (08:50)
[2018-03-08] MEDS: ENOXAPARIN 30 MG/0.3 ML SYG SC ×2 (08:51→21:27)
[2018-03-08] MEDS: SODIUM HYPOCHLORITE (1/40) 1 APPLIC BTL IRR (08:52)
[2018-03-08] MEDS: ACCU-CHEK XX ×2 (08:53→21:13)
[2018-03-08] MEDS: GENTAMICIN 0.1% 15 GM OINT TOP ×2 (08:55→21:12)
[2018-03-08] MEDS: morphine 2 MG INJ IV ×2 (10:42→15:45)
[2018-03-08] MEDS: LORAZEPAM 2 MG INJ IV (11:47)
[2018-03-08] MEDS: morphine 4 MG/ML VIAL IV (12:08)
[2018-03-08] MEDS: FENTAnyl (DRIP) 1000 mcg/100mL 100 ML IV (12:30)
[2018-03-08] MEDS: MAGNESIUM SULFATE 2 GM/50 ML 50 ML IVPB (13:59)
[2018-03-08] MEDS: TPN 1,000 ML IV (15:00)
[2018-03-09] MEDS: FENTAnyl (DRIP) 1000 mcg/100mL 100 ML IV ×2 (00:02→14:28)
[2018-03-09] MEDS: PANTOPRAZOLE 40 MG INJ IV (05:43)
[2018-03-09] MEDS: PIPER-TAZO 3.375 GM IV (PMX) 100 ML IVPB ×3 (05:43→17:30)
[2018-03-09 05:55] LABS: ADD MAN DIFF? NO
[2018-03-09 05:57] LABS: BASOPHIL # 0.1 10^3/ul (0.0-0.1); BASOPHILS % 1.7 % (0.0-2.0); EOSINOPHILS # 0.5 10^3/ul (0.0-0.5); EOSINOPHILS % 9.9 % (0.0-7.0); HEMATOCRIT 30.3 % (37.0-47.0); HEMOGLOBIN 9.6 g/dl (12.0-16.0); LYMPHOCYTES # 1.6 10^3/ul (0.8-2.9); LYMPHOCYTES % 30.4 % (15.0-51.0); MEAN CORPUSCULAR HEMOGLOBIN 30.1 pg (29.0-33.0); MEAN CORPUSCULAR HGB CONC 31.7 g/dl (32.0-37.0); MEAN PLATELET VOLUME 10.1 fl (7.4-10.4); MONOCYTE # 0.7 10^3/ul (0.3-0.9); MONOCYTES % 12.4 % (0.0-11.0); NEUTROPHIL # 2.2 10^3/ul (1.6-7.5); NEUTROPHILS % 42.6 % (39.0-77.0); PLATELET COUNT 474 10^3/UL (140-415); RED BLOOD COUNT 3.19 10^6/ul (4.20-5.40); RED CELL DISTRIBUTION WIDTH 17.5 % (11.5-14.5)
[2018-03-09 05:57] LABS: WHITE BLOOD COUNT 5.3 10^3/ul (4.8-10.8)
[2018-03-09] MEDS: VALPROATE INJ 500 MG in SOD CHLORIDE 0.9% 50 ML IVPB ×3 (06:38→22:20)
[2018-03-09 06:41] LABS: ANION GAP 9 (8-16); BLOOD UREA NITROGEN 15 mg/dl (7-20); CALCIUM 8.9 mg/dl (8.4-10.2); CARBON DIOXIDE 28 mmol/L (21-31); CHLORIDE 105 mmol/L (97-110); CREATININE 0.72 mg/dl (0.44-1.00); GLUCOSE 120 mg/dl (70-220); MAGNESIUM 2.1 mg/dl (1.7-2.5); POTASSIUM 4.3 mmol/L (3.5-5.1); SODIUM 138 mmol/L (135-144)
[2018-03-09] MEDS: PROPOFOL 100 ML IV ×2 (08:00→19:35)
[2018-03-09] MEDS: LEVALBUTEROL (HFA) 15 GM INHALER INH ×3 (08:00→15:09)
[2018-03-09] MEDS: GENTAMICIN 0.1% 15 GM OINT TOP ×2 (08:23→21:49)
[2018-03-09] MEDS: SODIUM HYPOCHLORITE (1/40) 1 APPLIC BTL IRR (08:23)
[2018-03-09] MEDS: ENOXAPARIN 30 MG/0.3 ML SYG SC ×2 (08:25→21:51)
[2018-03-09] MEDS: ACCU-CHEK XX ×2 (08:27→21:48)
[2018-03-09] MEDS: LEVOFLOXACIN 250MG/D5W (PMX) 50 ML IVPB (09:52)
[2018-03-09] MEDS: TPN 1,000 ML IV (11:00)
[2018-03-09] MEDS: FAT EMULSION 20% 250 ML IV (15:38)
[2018-03-09] MEDS: EPOETIN 10000 UNITS/ML (NON ESRD/NON ONCOLOGY) SC (17:31)
[2018-03-09] MEDS: LORAZEPAM 2 MG INJ IV (17:52)
[2018-03-10] MEDS: PIPER-TAZO 3.375 GM IV (PMX) 100 ML IVPB ×4 (00:06→16:59)
[2018-03-10] MEDS: FENTAnyl (DRIP) 1000 mcg/100mL 100 ML IV ×3 (00:43→21:08)
[2018-03-10] MEDS: LEVALBUTEROL (HFA) 15 GM INHALER INH ×3 (00:51→15:07)
[2018-03-10] MEDS: PANTOPRAZOLE 40 MG INJ IV (05:56)
[2018-03-10 06:03] LABS: ANION GAP 10 (8-16); BLOOD UREA NITROGEN 12 mg/dl (7-20); CALCIUM 8.7 mg/dl (8.4-10.2); CARBON DIOXIDE 27 mmol/L (21-31); CHLORIDE 104 mmol/L (97-110); CREATININE 0.73 mg/dl (0.44-1.00); GLUCOSE 145 mg/dl (70-220); MAGNESIUM 1.8 mg/dl (1.7-2.5); PHOSPHORUS 4.4 mg/dl (2.5-4.9); POTASSIUM 4.1 mmol/L (3.5-5.1); SODIUM 137 mmol/L (135-144)
[2018-03-10] MEDS: VALPROATE INJ 500 MG in SOD CHLORIDE 0.9% 50 ML IVPB ×3 (06:46→21:31)
[2018-03-10] MEDS: TPN 1,000 ML IV ×2 (07:00→12:10)
[2018-03-10] MEDS: PROPOFOL 100 ML IV ×2 (08:00→20:00)
[2018-03-10] MEDS: GENTAMICIN 0.1% 15 GM OINT TOP ×2 (09:00→20:35)
[2018-03-10] MEDS: LEVOFLOXACIN 250MG/D5W (PMX) 50 ML IVPB (09:43)
[2018-03-10] MEDS: ACCU-CHEK XX ×2 (09:45→20:33)
[2018-03-10] MEDS: ENOXAPARIN 30 MG/0.3 ML SYG SC ×2 (09:46→20:36)
[2018-03-10] MEDS: LORAZEPAM 2 MG INJ IV ×2 (11:37→15:54)
[2018-03-10] MEDS: SODIUM HYPOCHLORITE (1/40) 1 APPLIC BTL IRR (15:54)
[2018-03-11] MEDS: PIPER-TAZO 3.375 GM IV (PMX) 100 ML IVPB ×4 (00:32→17:34)
[2018-03-11] MEDS: LEVALBUTEROL (HFA) 15 GM INHALER INH ×4 (01:04→23:15)
[2018-03-11 05:27] LABS: ADD MAN DIFF? NO
[2018-03-11 05:30] LABS: BASOPHILS % 0.8 % (0.0-2.0); EOSINOPHILS # 0.5 10^3/ul (0.0-0.5); EOSINOPHILS % 8.7 % (0.0-7.0); HEMATOCRIT 27.4 % (37.0-47.0); HEMOGLOBIN 8.8 g/dl (12.0-16.0); IMMATURE GRANS #M 0.07 10^3/ul; IMMATURE GRANS % (M) 1.4 %; LYMPHOCYTES # 1.2 10^3/ul (0.8-2.9); LYMPHOCYTES % 22.7 % (15.0-51.0); MEAN CORPUSCULAR HEMOGLOBIN 30.8 pg (29.0-33.0); MEAN CORPUSCULAR HGB CONC 32.1 g/dl (32.0-37.0); MEAN CORPUSCULAR VOLUME 95.8 fl (82.0-101.0); MONOCYTE # 0.6 10^3/ul (0.3-0.9); MONOCYTES % 12.2 % (0.0-11.0); NEUTROPHIL # 2.8 10^3/ul (1.6-7.5); NEUTROPHILS % 54.2 % (39.0-77.0); PLATELET COUNT 435 10^3/UL (140-415); RED BLOOD COUNT 2.86 10^6/ul (4.20-5.40); RED CELL DISTRIBUTION WIDTH 18.1 % (11.5-14.5)
[2018-03-11 05:30] LABS: WHITE BLOOD COUNT 5.2 10^3/ul (4.8-10.8)
[2018-03-11 05:46] LABS: ANION GAP 12 (8-16); BLOOD UREA NITROGEN 11 mg/dl (7-20); CALCIUM 8.8 mg/dl (8.4-10.2); CARBON DIOXIDE 25 mmol/L (21-31); CHLORIDE 106 mmol/L (97-110); CREATININE 0.78 mg/dl (0.44-1.00); GLUCOSE 163 mg/dl (70-220); MAGNESIUM 1.8 mg/dl (1.7-2.5); POTASSIUM 4.4 mmol/L (3.5-5.1); SODIUM 139 mmol/L (135-144)
[2018-03-11] MEDS: PANTOPRAZOLE 40 MG INJ IV (06:48)
[2018-03-11] MEDS: TPN 1,000 ML IV ×2 (07:02→23:47)
[2018-03-11] MEDS: VALPROATE INJ 500 MG in SOD CHLORIDE 0.9% 50 ML IVPB ×3 (07:31→23:47)
[2018-03-11] MEDS: PROPOFOL 100 ML IV ×2 (08:00→20:00)
[2018-03-11] MEDS: ACCU-CHEK XX ×2 (09:00→21:28)
[2018-03-11] MEDS: GENTAMICIN 0.1% 15 GM OINT TOP ×2 (09:00→21:19)
[2018-03-11] MEDS: SODIUM HYPOCHLORITE (1/40) 1 APPLIC BTL IRR (09:00)
[2018-03-11] MEDS: ENOXAPARIN 30 MG/0.3 ML SYG SC ×2 (10:08→21:20)
[2018-03-11] MEDS: LEVOFLOXACIN 250MG/D5W (PMX) 50 ML IVPB (10:09)
[2018-03-11] MEDS: FENTAnyl (DRIP) 1000 mcg/100mL 100 ML IV ×3 (11:32→23:50)
[2018-03-11] MEDS: LORAZEPAM 2 MG INJ IV ×2 (11:35→17:35)
[2018-03-11 14:06] LABS: PROCALCITONIN 0.25 ng/mL (<0.10)
[2018-03-12] MEDS: PIPER-TAZO 3.375 GM IV (PMX) 100 ML IVPB ×4 (00:57→18:12)
[2018-03-12 05:07] LABS: AADO2 Arterial 84.5 mmHg (7.0-24.0); Allen Test ACCEPTAB; Arterial Base Excess -0.5 mmol/L (-3.0-3); Arterial COHb 0.8 % (0.0-3.0); Arterial Fraction of Oxyhgb 95.8 % (93.0-99.0); Arterial HCO3 23.1 mmol/L (22.0-26.0); Arterial MetHb 0.4 % (0.0-1.5); Arterial Total Hemglobin 8.7 g/dl (12.0-18.0); Arterial pCO2 33.9 mmhg (35-45); MODE VENT - AC; Site Right Radial
[2018-03-12] MEDS: PANTOPRAZOLE 40 MG INJ IV (05:27)
[2018-03-12 05:51] LABS: ADD MAN DIFF? NO
[2018-03-12 06:09] LABS: BASOPHIL # 0.1 10^3/ul (0.0-0.1); BASOPHILS % 0.8 % (0.0-2.0); EOSINOPHILS # 0.8 10^3/ul (0.0-0.5); HEMATOCRIT 29.8 % (37.0-47.0); HEMOGLOBIN 9.3 g/dl (12.0-16.0); IMMATURE GRANS #M 0.13 10^3/ul; IMMATURE GRANS % (M) 1.6 %; LYMPHOCYTES # 1.1 10^3/ul (0.8-2.9); LYMPHOCYTES % 13.2 % (15.0-51.0); MEAN CORPUSCULAR HEMOGLOBIN 29.9 pg (29.0-33.0); MEAN CORPUSCULAR HGB CONC 31.2 g/dl (32.0-37.0); MEAN CORPUSCULAR VOLUME 95.8 fl (82.0-101.0); MEAN PLATELET VOLUME 10.2 fl (7.4-10.4); MONOCYTES % 11.4 % (0.0-11.0); NEUTROPHIL # 5.3 10^3/ul (1.6-7.5); PLATELET COUNT 452 10^3/UL (140-415); RED BLOOD COUNT 3.11 10^6/ul (4.20-5.40); RED CELL DISTRIBUTION WIDTH 18.3 % (11.5-14.5)
[2018-03-12 06:09] LABS: WHITE BLOOD COUNT 8.3 10^3/ul (4.8-10.8)
[2018-03-12 06:19] LABS: ANION GAP 15 (8-16); BLOOD UREA NITROGEN 13 mg/dl (7-20); CALCIUM 9.1 mg/dl (8.4-10.2); CARBON DIOXIDE 25 mmol/L (21-31); CHLORIDE 104 mmol/L (97-110); CREATININE 0.71 mg/dl (0.44-1.00); GLUCOSE 113 mg/dl (70-220); POTASSIUM 4.5 mmol/L (3.5-5.1); SODIUM 139 mmol/L (135-144)
[2018-03-12] MEDS: VALPROATE INJ 500 MG in SOD CHLORIDE 0.9% 50 ML IVPB ×3 (06:56→21:53)
[2018-03-12] MEDS: LEVALBUTEROL (HFA) 15 GM INHALER INH ×3 (07:52→23:14)
[2018-03-12] MEDS: PROPOFOL 100 ML IV ×2 (08:00→19:19)
[2018-03-12] MEDS: SODIUM HYPOCHLORITE (1/40) 1 APPLIC BTL IRR (09:50)
[2018-03-12] MEDS: LEVOFLOXACIN 250MG/D5W (PMX) 50 ML IVPB (09:50)
[2018-03-12] MEDS: GENTAMICIN 0.1% 15 GM OINT TOP ×2 (09:50→21:53)
[2018-03-12] MEDS: ACCU-CHEK XX ×2 (09:53→21:51)
[2018-03-12] MEDS: ENOXAPARIN 30 MG/0.3 ML SYG SC ×2 (09:54→21:57)
[2018-03-12] MEDS: LORAZEPAM 2 MG INJ IV (11:44)
[2018-03-12] MEDS: FAT EMULSION 20% 250 ML IV (16:00)
[2018-03-12] MEDS: TPN 1,000 ML IV (18:15)
[2018-03-12] MEDS: EPOETIN 10000 UNITS/ML (NON ESRD/NON ONCOLOGY) SC (18:15)
[2018-03-12] MEDS: FENTAnyl (DRIP) 1000 mcg/100mL 100 ML IV (18:23)
[2018-03-13] MEDS: PIPER-TAZO 3.375 GM IV (PMX) 100 ML IVPB ×2 (00:12→05:29)
[2018-03-13] MEDS: PANTOPRAZOLE 40 MG INJ IV (05:28)
[2018-03-13] MEDS: VALPROATE INJ 500 MG in SOD CHLORIDE 0.9% 50 ML IVPB ×3 (05:29→21:47)
[2018-03-13 05:44] LABS: ANION GAP 14 (8-16); BLOOD UREA NITROGEN 13 mg/dl (7-20); CALCIUM 9.1 mg/dl (8.4-10.2); CARBON DIOXIDE 24 mmol/L (21-31); CHLORIDE 106 mmol/L (97-110); CREATININE 0.69 mg/dl (0.44-1.00); GLUCOSE 108 mg/dl (70-220); MAGNESIUM 1.7 mg/dl (1.7-2.5); PHOSPHORUS 3.3 mg/dl (2.5-4.9); POTASSIUM 4.5 mmol/L (3.5-5.1); SODIUM 139 mmol/L (135-144)
[2018-03-13] MEDS: LORAZEPAM 2 MG INJ IV ×5 (06:05→21:19)
[2018-03-13] MEDS: FENTAnyl (DRIP) 1000 mcg/100mL 100 ML IV ×3 (06:32→23:21)
[2018-03-13] MEDS: PROPOFOL 100 ML IV ×2 (08:00→20:00)
[2018-03-13] MEDS: SODIUM HYPOCHLORITE (1/40) 1 APPLIC BTL IRR (08:28)
[2018-03-13] MEDS: GENTAMICIN 0.1% 15 GM OINT TOP ×2 (08:29→20:51)
[2018-03-13] MEDS: ENOXAPARIN 30 MG/0.3 ML SYG SC ×2 (08:29→20:48)
[2018-03-13] MEDS: MIDODRINE 5 MG TAB PO ×3 (08:35→16:33)
[2018-03-13] MEDS: ACCU-CHEK XX ×2 (08:38→20:42)
[2018-03-13] MEDS: LEVALBUTEROL (HFA) 15 GM INHALER INH ×3 (08:42→23:35)
[2018-03-14] MEDS: morphine 2 MG INJ IV (01:50)
[2018-03-14] MEDS: LORAZEPAM 2 MG INJ IV ×5 (03:18→21:22)
[2018-03-14 05:09] LABS: ADD MAN DIFF? NO
[2018-03-14 05:14] LABS: WHITE BLOOD COUNT 7.4 10^3/ul (4.8-10.8)
[2018-03-14 05:14] LABS: BASOPHIL # 0.1 10^3/ul (0.0-0.1); HEMATOCRIT 29.7 % (37.0-47.0); HEMOGLOBIN 9.4 g/dl (12.0-16.0); IMMATURE GRANS #M 0.07 10^3/ul; LYMPHOCYTES # 1.7 10^3/ul (0.8-2.9); LYMPHOCYTES % 23.5 % (15.0-51.0); MEAN CORPUSCULAR HEMOGLOBIN 29.9 pg (29.0-33.0); MEAN CORPUSCULAR HGB CONC 31.6 g/dl (32.0-37.0); MEAN CORPUSCULAR VOLUME 94.6 fl (82.0-101.0); MEAN PLATELET VOLUME 10.1 fl (7.4-10.4); MONOCYTE # 0.8 10^3/ul (0.3-0.9); MONOCYTES % 10.5 % (0.0-11.0); NEUTROPHIL # 3.7 10^3/ul (1.6-7.5); PLATELET COUNT 449 10^3/UL (140-415); RED BLOOD COUNT 3.14 10^6/ul (4.20-5.40); RED CELL DISTRIBUTION WIDTH 18.1 % (11.5-14.5)
[2018-03-14 05:29] LABS: ALBUMIN 2.8 g/dl (3.3-4.9); ALKALINE PHOSPHATASE 89 IU/L (42-121); ANION GAP 15 (8-16); ASPARTATE AMINO TRANSFERASE 21 IU/L (15-46); BILIRUBIN,INDIRECT 0.1 mg/dl (0-1.1); BILIRUBIN,TOTAL 0.1 mg/dl (0.2-1.3); CALCIUM 9.1 mg/dl (8.4-10.2); CARBON DIOXIDE 26 mmol/L (21-31); CHLORIDE 104 mmol/L (97-110); CREATININE 0.65 mg/dl (0.44-1.00); GLUCOSE 108 mg/dl (70-220); SODIUM 141 mmol/L (135-144); TOTAL PROTEIN 6.8 g/dl (6.1-8.1)
[2018-03-14 05:35] LABS: BLOOD UREA NITROGEN 14 mg/dl (7-20)
[2018-03-14 05:37] LABS: ALANINE AMINOTRANSFERASE < 6 IU/L (13-69)
[2018-03-14] MEDS: VALPROATE INJ 500 MG in SOD CHLORIDE 0.9% 50 ML IVPB ×3 (05:39→21:22)
[2018-03-14] MEDS: PANTOPRAZOLE 40 MG INJ IV (05:39)
[2018-03-14] MEDS: PROPOFOL 100 ML IV ×2 (08:00→19:28)
[2018-03-14] MEDS: ENOXAPARIN 30 MG/0.3 ML SYG SC ×2 (08:34→21:21)
[2018-03-14] MEDS: GENTAMICIN 0.1% 15 GM OINT TOP ×2 (08:36→21:22)
[2018-03-14] MEDS: SODIUM HYPOCHLORITE (1/40) 1 APPLIC BTL IRR (08:37)
[2018-03-14] MEDS: MIDODRINE 5 MG TAB PO ×3 (08:37→17:00)
[2018-03-14] MEDS: ACCU-CHEK XX ×2 (09:00→21:22)
[2018-03-14] MEDS: LEVALBUTEROL (HFA) 15 GM INHALER INH ×2 (09:50→16:48)
[2018-03-14] MEDS: FENTAnyl (DRIP) 1000 mcg/100mL 100 ML IV (11:03)
[2018-03-14] MEDS: ONDANSETRON 4 MG INJ IV (12:18)
[2018-03-14] MEDS: EPOETIN 10000 UNITS/ML (NON ESRD/NON ONCOLOGY) SC (17:12)
[2018-03-15] MEDS: LEVALBUTEROL (HFA) 15 GM INHALER INH ×4 (00:05→23:15)
[2018-03-15] MEDS: LORAZEPAM 2 MG INJ IV ×5 (00:35→21:29)
[2018-03-15] MEDS: FENTAnyl (DRIP) 1000 mcg/100mL 100 ML IV ×2 (02:42→16:35)
[2018-03-15] MEDS: PANTOPRAZOLE 40 MG INJ IV (05:10)
[2018-03-15] MEDS: VALPROATE INJ 500 MG in SOD CHLORIDE 0.9% 50 ML IVPB ×3 (05:10→21:44)
[2018-03-15 05:40] LABS: ANION GAP 15 (8-16); BLOOD UREA NITROGEN 13 mg/dl (7-20); CALCIUM 9.2 mg/dl (8.4-10.2); CARBON DIOXIDE 24 mmol/L (21-31); CHLORIDE 107 mmol/L (97-110); CREATININE 0.73 mg/dl (0.44-1.00); GLUCOSE 100 mg/dl (70-220); MAGNESIUM 1.7 mg/dl (1.7-2.5); POTASSIUM 3.9 mmol/L (3.5-5.1); SODIUM 142 mmol/L (135-144)
[2018-03-15 07:29] LABS: AADO2 Arterial 66.5 mmHg (7.0-24.0); Arterial Blood Gas Oxygen Sat 97.9 mmHG (95.0-100.0); Arterial COHb 0.4 % (0.0-3.0); Arterial Fraction of Oxyhgb 97.2 % (93.0-99.0); Arterial HCO3 26.4 mmol/L (22.0-26.0); Arterial MetHb 0.3 % (0.0-1.5); Arterial pCO2 36.3 mmhg (35-45); MODE VENT - AC; Site Right Brachial
[2018-03-15] MEDS: PROPOFOL 100 ML IV ×2 (07:37→19:35)
[2018-03-15] MEDS: GENTAMICIN 0.1% 15 GM OINT TOP ×2 (08:00→21:24)
[2018-03-15] MEDS: SODIUM HYPOCHLORITE (1/40) 1 APPLIC BTL IRR (08:00)
[2018-03-15] MEDS: MIDODRINE 5 MG TAB PO ×3 (08:01→17:27)
[2018-03-15] MEDS: ENOXAPARIN 30 MG/0.3 ML SYG SC ×2 (08:02→21:23)
[2018-03-15] MEDS: ACCU-CHEK XX ×2 (08:27→21:24)
[2018-03-15] MEDS: POTASSIUM CHLORIDE 100 ML IVPB (15:17)
[2018-03-15] MEDS: MAGNESIUM SULFATE 2 GM/50 ML 50 ML IVPB (17:26)
[2018-03-16] MEDS: LORAZEPAM 2 MG INJ IV (02:30)
[2018-03-16] MEDS: VALPROATE INJ 500 MG in SOD CHLORIDE 0.9% 50 ML IVPB ×3 (05:08→22:38)
[2018-03-16] MEDS: PANTOPRAZOLE 40 MG INJ IV (05:08)
[2018-03-16 05:12] LABS: ADD MAN DIFF? NO
[2018-03-16 05:16] LABS: WHITE BLOOD COUNT 7.1 10^3/ul (4.8-10.8)
[2018-03-16 05:16] LABS: BASOPHIL # 0.1 10^3/ul (0.0-0.1); EOSINOPHILS # 0.4 10^3/ul (0.0-0.5); EOSINOPHILS % 5.9 % (0.0-7.0); HEMATOCRIT 29.3 % (37.0-47.0); HEMOGLOBIN 9.5 g/dl (12.0-16.0); LYMPHOCYTES # 1.8 10^3/ul (0.8-2.9); LYMPHOCYTES % 25.3 % (15.0-51.0); MEAN CORPUSCULAR HEMOGLOBIN 30.6 pg (29.0-33.0); MEAN CORPUSCULAR HGB CONC 32.4 g/dl (32.0-37.0); MEAN CORPUSCULAR VOLUME 94.5 fl (82.0-101.0); MEAN PLATELET VOLUME 9.8 fl (7.4-10.4); MONOCYTE # 0.9 10^3/ul (0.3-0.9); NEUTROPHIL # 3.8 10^3/ul (1.6-7.5); NEUTROPHILS % 54.2 % (39.0-77.0); PLATELET COUNT 391 10^3/UL (140-415); RED CELL DISTRIBUTION WIDTH 18.5 % (11.5-14.5)
[2018-03-16 05:55] LABS: ANION GAP 12 (8-16); BLOOD UREA NITROGEN 11 mg/dl (7-20); CALCIUM 8.9 mg/dl (8.4-10.2); CARBON DIOXIDE 24 mmol/L (21-31); CHLORIDE 106 mmol/L (97-110); CREATININE 0.65 mg/dl (0.44-1.00); GLUCOSE 153 mg/dl (70-220); MAGNESIUM 2.1 mg/dl (1.7-2.5); POTASSIUM 3.9 mmol/L (3.5-5.1); SODIUM 138 mmol/L (135-144)
[2018-03-16] MEDS: FENTAnyl (DRIP) 1000 mcg/100mL 100 ML IV ×2 (07:19→21:55)
[2018-03-16] MEDS: PROPOFOL 100 ML IV ×2 (08:00→19:46)
[2018-03-16] MEDS: LEVALBUTEROL (HFA) 15 GM INHALER INH ×2 (08:38→17:14)
[2018-03-16] MEDS: MIDODRINE 5 MG TAB PO ×3 (08:52→16:29)
[2018-03-16] MEDS: ACCU-CHEK XX ×2 (09:00→20:51)
[2018-03-16] MEDS: SODIUM HYPOCHLORITE (1/40) 1 APPLIC BTL IRR (09:03)
[2018-03-16] MEDS: ENOXAPARIN 30 MG/0.3 ML SYG SC ×2 (09:16→20:52)
[2018-03-16] MEDS: GENTAMICIN 0.1% 15 GM OINT TOP ×2 (13:00→21:02)
[2018-03-16] MEDS: EPOETIN 10000 UNITS/ML (NON ESRD/NON ONCOLOGY) SC (16:30)
[2018-03-16] MEDS: HYDROCORTISONE 100 MG INJ IV ×2 (16:30→22:16)
[2018-03-17] MEDS: LEVALBUTEROL (HFA) 15 GM INHALER INH ×3 (01:17→16:55)
[2018-03-17 05:33] LABS: ADD MAN DIFF? NO
[2018-03-17 05:35] LABS: BASOPHILS % 0.3 % (0.0-2.0); HEMATOCRIT 30.8 % (37.0-47.0); HEMOGLOBIN 9.9 g/dl (12.0-16.0); LYMPHOCYTES % 16.2 % (15.0-51.0); MEAN CORPUSCULAR HEMOGLOBIN 30.7 pg (29.0-33.0); MEAN CORPUSCULAR HGB CONC 32.1 g/dl (32.0-37.0); MEAN CORPUSCULAR VOLUME 95.7 fl (82.0-101.0); MEAN PLATELET VOLUME 10.1 fl (7.4-10.4); MONOCYTE # 0.1 10^3/ul (0.3-0.9); MONOCYTES % 2.4 % (0.0-11.0); NEUTROPHIL # 4.7 10^3/ul (1.6-7.5); NEUTROPHILS % 79.6 % (39.0-77.0); PLATELET COUNT 369 10^3/UL (140-415); RED BLOOD COUNT 3.22 10^6/ul (4.20-5.40); RED CELL DISTRIBUTION WIDTH 18.4 % (11.5-14.5)
[2018-03-17 05:35] LABS: WHITE BLOOD COUNT 5.9 10^3/ul (4.8-10.8)
[2018-03-17 05:58] LABS: ANION GAP 16 (8-16); BLOOD UREA NITROGEN 18 mg/dl (7-20); CALCIUM 9.4 mg/dl (8.4-10.2); CARBON DIOXIDE 24 mmol/L (21-31); CHLORIDE 107 mmol/L (97-110); CREATININE 0.72 mg/dl (0.44-1.00); GLUCOSE 153 mg/dl (70-220); MAGNESIUM 2.1 mg/dl (1.7-2.5); POTASSIUM 4.7 mmol/L (3.5-5.1); SODIUM 142 mmol/L (135-144)
[2018-03-17] MEDS: PANTOPRAZOLE 40 MG INJ IV (06:22)
[2018-03-17] MEDS: HYDROCORTISONE 100 MG INJ IV ×3 (06:22→21:37)
[2018-03-17] MEDS: VALPROATE INJ 500 MG in SOD CHLORIDE 0.9% 50 ML IVPB ×3 (06:23→21:37)
[2018-03-17] MEDS: PROPOFOL 100 ML IV ×2 (08:00→20:00)
[2018-03-17] MEDS: MIDODRINE 5 MG TAB PO ×3 (08:48→16:28)
[2018-03-17] MEDS: SODIUM HYPOCHLORITE (1/40) 1 APPLIC BTL IRR (08:48)
[2018-03-17] MEDS: ENOXAPARIN 30 MG/0.3 ML SYG SC ×2 (08:55→21:20)
[2018-03-17] MEDS: GENTAMICIN 0.1% 15 GM OINT TOP ×2 (09:00→21:15)
[2018-03-17] MEDS: ACCU-CHEK XX ×2 (09:00→21:29)
[2018-03-17] MEDS: morphine 2 MG INJ IV ×5 (10:24→21:37)
[2018-03-17] MEDS: FENTAnyl (DRIP) 1000 mcg/100mL 100 ML IV ×2 (14:13→14:16)
[2018-03-18] MEDS: LEVALBUTEROL (HFA) 15 GM INHALER INH ×3 (00:18→17:32)
[2018-03-18] MEDS: LORAZEPAM 2 MG INJ IV ×3 (03:23→17:16)
[2018-03-18] MEDS: morphine 2 MG INJ IV ×2 (05:32→21:37)
[2018-03-18 05:50] LABS: ADD MAN DIFF? NO
[2018-03-18 05:55] LABS: WHITE BLOOD COUNT 5.4 10^3/ul (4.8-10.8)
[2018-03-18 05:55] LABS: BASOPHILS % 0.2 % (0.0-2.0); HEMATOCRIT 28.9 % (37.0-47.0); HEMOGLOBIN 9.2 g/dl (12.0-16.0); LYMPHOCYTES % 17.9 % (15.0-51.0); MEAN CORPUSCULAR HEMOGLOBIN 30.8 pg (29.0-33.0); MEAN CORPUSCULAR HGB CONC 31.8 g/dl (32.0-37.0); MEAN CORPUSCULAR VOLUME 96.7 fl (82.0-101.0); MEAN PLATELET VOLUME 10.3 fl (7.4-10.4); MONOCYTE # 0.3 10^3/ul (0.3-0.9); NEUTROPHILS % 74.1 % (39.0-77.0); PLATELET COUNT 308 10^3/UL (140-415); RED BLOOD COUNT 2.99 10^6/ul (4.20-5.40); RED CELL DISTRIBUTION WIDTH 18.5 % (11.5-14.5)
[2018-03-18] MEDS: HYDROCORTISONE 100 MG INJ IV ×3 (06:08→21:28)
[2018-03-18] MEDS: PANTOPRAZOLE 40 MG INJ IV (06:08)
[2018-03-18] MEDS: VALPROATE INJ 500 MG in SOD CHLORIDE 0.9% 50 ML IVPB ×3 (06:08→21:29)
[2018-03-18 06:44] LABS: ANION GAP 12 (8-16); BLOOD UREA NITROGEN 28 mg/dl (7-20); CALCIUM 9.5 mg/dl (8.4-10.2); CARBON DIOXIDE 25 mmol/L (21-31); CHLORIDE 107 mmol/L (97-110); CREATININE 0.64 mg/dl (0.44-1.00); GLUCOSE 141 mg/dl (70-220); MAGNESIUM 1.9 mg/dl (1.7-2.5); PHOSPHORUS 3.9 mg/dl (2.5-4.9); POTASSIUM 4.3 mmol/L (3.5-5.1); SODIUM 140 mmol/L (135-144)
[2018-03-18] MEDS: FENTAnyl (DRIP) 1000 mcg/100mL 100 ML IV (06:49)
[2018-03-18] MEDS: PROPOFOL 100 ML IV ×2 (07:45→20:00)
[2018-03-18] MEDS: SODIUM HYPOCHLORITE (1/40) 1 APPLIC BTL IRR (08:09)
[2018-03-18] MEDS: MIDODRINE 5 MG TAB PO ×3 (08:09→16:37)
[2018-03-18] MEDS: ENOXAPARIN 30 MG/0.3 ML SYG SC ×2 (08:10→21:33)
[2018-03-18] MEDS: GENTAMICIN 0.1% 15 GM OINT TOP ×2 (08:17→21:27)
[2018-03-18] MEDS: ACCU-CHEK XX ×2 (09:00→21:00)
[2018-03-18] MEDS: morphine 4 MG/ML VIAL IV ×2 (11:12→14:36)
[2018-03-19] MEDS: FENTAnyl (DRIP) 1000 mcg/100mL 100 ML IV (01:27)
[2018-03-19] MEDS: LEVALBUTEROL (HFA) 15 GM INHALER INH ×4 (01:49→23:41)
[2018-03-19] MEDS: morphine 2 MG INJ IV ×3 (04:01→14:46)
[2018-03-19] MEDS: HYDROCORTISONE 100 MG INJ IV ×3 (06:19→21:46)
[2018-03-19] MEDS: PANTOPRAZOLE 40 MG INJ IV (06:19)
[2018-03-19] MEDS: VALPROATE INJ 500 MG in SOD CHLORIDE 0.9% 50 ML IVPB ×3 (06:25→21:46)
[2018-03-19] MEDS: PROPOFOL 100 ML IV (08:00)
[2018-03-19] MEDS: MIDODRINE 5 MG TAB PO ×3 (08:44→16:35)
[2018-03-19] MEDS: ENOXAPARIN 30 MG/0.3 ML SYG SC ×2 (08:56→21:00)
[2018-03-19] MEDS: LORAZEPAM 2 MG INJ IV ×2 (08:59→15:41)
[2018-03-19] MEDS: ACCU-CHEK XX ×2 (09:00→21:47)
[2018-03-19] MEDS: SODIUM HYPOCHLORITE (1/40) 1 APPLIC BTL IRR (09:06)
[2018-03-19] MEDS: GENTAMICIN 0.1% 15 GM OINT TOP ×2 (09:07→21:47)
[2018-03-19] MEDS: HYDROCODONE/APAP (5/325) TAB PO (12:38)
[2018-03-19] MEDS: FENTAnyl PATCH 50 MCG/HR TRANSDERM (13:39)
[2018-03-19] MEDS: EPOETIN 10000 UNITS/ML (NON ESRD/NON ONCOLOGY) SC (16:37)
[2018-03-19] MEDS: CEFAZOLIN 2 GM/50 ML (PMX) 50 ML IVPB (17:30)
[2018-03-20] MEDS: LORAZEPAM 2 MG INJ IV ×3 (00:12→17:36)
[2018-03-20 05:31] LABS: ADD MAN DIFF? NO; BASOPHILS % 0.2 % (0.0-2.0); HEMATOCRIT 29.2 % (37.0-47.0); HEMOGLOBIN 9.3 g/dl (12.0-16.0); LYMPHOCYTES % 18.2 % (15.0-51.0); MEAN CORPUSCULAR HEMOGLOBIN 30.7 pg (29.0-33.0); MEAN CORPUSCULAR HGB CONC 31.8 g/dl (32.0-37.0); MEAN CORPUSCULAR VOLUME 96.4 fl (82.0-101.0); MEAN PLATELET VOLUME 10.4 fl (7.4-10.4); MONOCYTE # 0.3 10^3/ul (0.3-0.9); MONOCYTES % 5.4 % (0.0-11.0); NEUTROPHIL # 4.3 10^3/ul (1.6-7.5); NEUTROPHILS % 74.5 % (39.0-77.0); NUCLEATED RED BLOOD CELLS% 0.3 /100WBC (0.0-0.0); PLATELET COUNT 295 10^3/UL (140-415); RED BLOOD COUNT 3.03 10^6/ul (4.20-5.40); RED CELL DISTRIBUTION WIDTH 18.2 % (11.5-14.5)
[2018-03-20 05:31] LABS: WHITE BLOOD COUNT 5.7 10^3/ul (4.8-10.8)
[2018-03-20] MEDS: PANTOPRAZOLE 40 MG INJ IV (05:42)
[2018-03-20] MEDS: HYDROCORTISONE 100 MG INJ IV ×3 (05:43→22:07)
[2018-03-20] MEDS: VALPROATE INJ 500 MG in SOD CHLORIDE 0.9% 50 ML IVPB ×3 (05:43→22:11)
[2018-03-20] MEDS: morphine 2 MG INJ IV ×3 (05:43→22:08)
[2018-03-20 05:47] LABS: ANION GAP 14 (8-16); BLOOD UREA NITROGEN 36 mg/dl (7-20); CALCIUM 9.6 mg/dl (8.4-10.2); CARBON DIOXIDE 26 mmol/L (21-31); CHLORIDE 109 mmol/L (97-110); CREATININE 0.66 mg/dl (0.44-1.00); GLUCOSE 136 mg/dl (70-220); MAGNESIUM 1.8 mg/dl (1.7-2.5); SODIUM 145 mmol/L (135-144)
[2018-03-20] MEDS: ACCU-CHEK XX ×2 (09:00→22:18)
[2018-03-20] MEDS: MIDODRINE 5 MG TAB PO ×3 (09:00→17:00)
[2018-03-20] MEDS: ENOXAPARIN 30 MG/0.3 ML SYG SC ×2 (09:00→22:10)
[2018-03-20] MEDS: SODIUM HYPOCHLORITE (1/40) 1 APPLIC BTL IRR (09:33)
[2018-03-20] MEDS: GENTAMICIN 0.1% 15 GM OINT TOP ×2 (09:34→22:11)
[2018-03-20] MEDS: LEVALBUTEROL (HFA) 15 GM INHALER INH ×3 (11:41→23:58)
[2018-03-20] MEDS: CEFAZOLIN 1 GM/50 ML (PMX) 50 ML IVPB (13:30)
[2018-03-21] MEDS: VALPROATE INJ 500 MG in SOD CHLORIDE 0.9% 50 ML IVPB ×3 (05:07→21:31)
[2018-03-21] MEDS: PANTOPRAZOLE 40 MG INJ IV (05:07)
[2018-03-21] MEDS: HYDROCORTISONE 100 MG INJ IV (05:07)
[2018-03-21 05:26] LABS: ADD MAN DIFF? NO
[2018-03-21 05:30] LABS: BASOPHILS % 0.1 % (0.0-2.0); HEMATOCRIT 33.1 % (37.0-47.0); HEMOGLOBIN 10.7 g/dl (12.0-16.0); LYMPHOCYTES # 1.1 10^3/ul (0.8-2.9); LYMPHOCYTES % 15.3 % (15.0-51.0); MEAN CORPUSCULAR HEMOGLOBIN 30.9 pg (29.0-33.0); MEAN CORPUSCULAR HGB CONC 32.3 g/dl (32.0-37.0); MEAN CORPUSCULAR VOLUME 95.7 fl (82.0-101.0); MEAN PLATELET VOLUME 10.4 fl (7.4-10.4); MONOCYTE # 0.4 10^3/ul (0.3-0.9); NEUTROPHIL # 5.4 10^3/ul (1.6-7.5); NEUTROPHILS % 76.8 % (39.0-77.0); PLATELET COUNT 304 10^3/UL (140-415); RED BLOOD COUNT 3.46 10^6/ul (4.20-5.40); RED CELL DISTRIBUTION WIDTH 18.1 % (11.5-14.5)
[2018-03-21 05:53] LABS: ANION GAP 12 (8-16); BLOOD UREA NITROGEN 35 mg/dl (7-20); CALCIUM 9.3 mg/dl (8.4-10.2); CARBON DIOXIDE 28 mmol/L (21-31); CHLORIDE 109 mmol/L (97-110); CREATININE 0.68 mg/dl (0.44-1.00); GLUCOSE 140 mg/dl (70-220); MAGNESIUM 1.8 mg/dl (1.7-2.5); POTASSIUM 3.5 mmol/L (3.5-5.1); SODIUM 145 mmol/L (135-144)
[2018-03-21] MEDS: LEVALBUTEROL (HFA) 15 GM INHALER INH ×3 (08:18→23:24)
[2018-03-21] MEDS: ACCU-CHEK XX ×2 (09:00→21:00)
[2018-03-21] MEDS: GENTAMICIN 0.1% 15 GM OINT TOP ×2 (09:49→21:32)
[2018-03-21] MEDS: SODIUM HYPOCHLORITE (1/40) 1 APPLIC BTL IRR (09:50)
[2018-03-21] MEDS: ENOXAPARIN 30 MG/0.3 ML SYG SC ×2 (09:52→21:35)
[2018-03-21] MEDS: morphine 2 MG INJ IV ×2 (11:10→15:43)
[2018-03-21] MEDS: LORAZEPAM 2 MG INJ IV ×3 (12:40→21:31)
[2018-03-21] MEDS: POTASSIUM CHLORIDE 100 ML IVPB (15:47)
[2018-03-21] MEDS: MAGNESIUM SULFATE 2 GM/50 ML 50 ML IVPB (17:49)
[2018-03-21] MEDS: EPOETIN 10000 UNITS/ML (NON ESRD/NON ONCOLOGY) SC (17:52)
[2018-03-21] MEDS: morphine 4 MG/ML VIAL IV (22:22)
[2018-03-22 05:08] LABS: ADD MAN DIFF? NO
[2018-03-22 05:13] LABS: WHITE BLOOD COUNT 11.8 10^3/ul (4.8-10.8)
[2018-03-22 05:13] LABS: BASOPHILS % 0.2 % (0.0-2.0); EOSINOPHILS % 0.2 % (0.0-7.0); HEMATOCRIT 31.3 % (37.0-47.0); HEMOGLOBIN 10.1 g/dl (12.0-16.0); LYMPHOCYTES % 16.5 % (15.0-51.0); MEAN CORPUSCULAR HEMOGLOBIN 31.2 pg (29.0-33.0); MEAN CORPUSCULAR HGB CONC 32.3 g/dl (32.0-37.0); MEAN CORPUSCULAR VOLUME 96.6 fl (82.0-101.0); MEAN PLATELET VOLUME 10.1 fl (7.4-10.4); MONOCYTE # 1.2 10^3/ul (0.3-0.9); MONOCYTES % 10.3 % (0.0-11.0); NEUTROPHIL # 8.5 10^3/ul (1.6-7.5); NUCLEATED RED BLOOD CELLS% 0.2 /100WBC (0.0-0.0); PLATELET COUNT 299 10^3/UL (140-415); RED BLOOD COUNT 3.24 10^6/ul (4.20-5.40); RED CELL DISTRIBUTION WIDTH 18.6 % (11.5-14.5)
[2018-03-22 05:43] LABS: ANION GAP 15 (8-16); BLOOD UREA NITROGEN 41 mg/dl (7-20); CALCIUM 9.1 mg/dl (8.4-10.2); CARBON DIOXIDE 23 mmol/L (21-31); CHLORIDE 110 mmol/L (97-110); CREATININE 0.63 mg/dl (0.44-1.00); GLUCOSE 161 mg/dl (70-220); MAGNESIUM 2.1 mg/dl (1.7-2.5); POTASSIUM 3.4 mmol/L (3.5-5.1); SODIUM 145 mmol/L (135-144)
[2018-03-22] MEDS: VALPROATE INJ 500 MG in SOD CHLORIDE 0.9% 50 ML IVPB ×3 (06:43→21:10)
[2018-03-22] MEDS: PANTOPRAZOLE 40 MG INJ IV (06:43)
[2018-03-22] MEDS: LEVALBUTEROL (HFA) 15 GM INHALER INH ×3 (07:47→23:39)
[2018-03-22] MEDS: ENOXAPARIN 30 MG/0.3 ML SYG SC ×2 (08:59→21:23)
[2018-03-22] MEDS: ACCU-CHEK XX ×2 (09:00→21:00)
[2018-03-22] MEDS: SODIUM HYPOCHLORITE (1/40) 1 APPLIC BTL IRR (09:02)
[2018-03-22] MEDS: GENTAMICIN 0.1% 15 GM OINT TOP ×2 (09:03→21:10)
[2018-03-22] MEDS: NEOMYC/POLYMYX/BACIT 30 GM OINT TOP (11:16)
[2018-03-22] MEDS: FENTAnyl PATCH 50 MCG/HR TRANSDERM (13:58)
[2018-03-22] MEDS: POTASSIUM CHLORIDE 100 ML IVPB ×2 (14:06→16:30)
[2018-03-22] MEDS: morphine 2 MG INJ IV ×2 (18:07→21:10)
[2018-03-22] MEDS: LORAZEPAM 2 MG INJ IV (22:26)
[2018-03-23] MEDS: IOHEXOL 300MG/ML 150 ML BTL (01:32)
[2018-03-23] MEDS: SOD CHLORIDE 0.9% 100 ML (01:32)
[2018-03-23 06:19] LABS: WHITE BLOOD COUNT 9.2 10^3/ul (4.8-10.8)
[2018-03-23 06:19] LABS: ADD MAN DIFF? NO; BASOPHILS % 0.1 % (0.0-2.0); EOSINOPHILS # 0.1 10^3/ul (0.0-0.5); EOSINOPHILS % 0.7 % (0.0-7.0); HEMATOCRIT 22.3 % (37.0-47.0); HEMOGLOBIN 7.1 g/dl (12.0-16.0); LYMPHOCYTES # 2.1 10^3/ul (0.8-2.9); LYMPHOCYTES % 22.9 % (15.0-51.0); MEAN CORPUSCULAR HEMOGLOBIN 31.4 pg (29.0-33.0); MEAN CORPUSCULAR HGB CONC 31.8 g/dl (32.0-37.0); MEAN CORPUSCULAR VOLUME 98.7 fl (82.0-101.0); MEAN PLATELET VOLUME 10.4 fl (7.4-10.4); NEUTROPHILS % 64.6 % (39.0-77.0); PLATELET COUNT 229 10^3/UL (140-415); RED BLOOD COUNT 2.26 10^6/ul (4.20-5.40); RED CELL DISTRIBUTION WIDTH 19.6 % (11.5-14.5)
[2018-03-23] MEDS: PANTOPRAZOLE 40 MG INJ IV (06:26)
[2018-03-23] MEDS ORDERED: DICYCLOMINE 10 MG CAP PO (06:30)
[2018-03-23] MEDS ORDERED: NAPROXEN 500 MG TAB PO (06:30)
[2018-03-23 07:08] LABS: ANION GAP 9 (8-16); BLOOD UREA NITROGEN 39 mg/dl (7-20); CARBON DIOXIDE 27 mmol/L (21-31); CHLORIDE 110 mmol/L (97-110); CREATININE 0.73 mg/dl (0.44-1.00); GLUCOSE 121 mg/dl (70-220); MAGNESIUM 2.1 mg/dl (1.7-2.5); SODIUM 142 mmol/L (135-144)
[2018-03-23] MEDS: GENTAMICIN 0.1% 15 GM OINT TOP ×2 (08:37→21:01)
[2018-03-23] MEDS: DIVALPROEX (ER) 500 MG TAB PO (08:37)
[2018-03-23] MEDS: SODIUM HYPOCHLORITE (1/40) 1 APPLIC BTL IRR (08:37)
[2018-03-23] MEDS: LOSARTAN 50 MG TAB PO (08:38)
[2018-03-23] MEDS: CIPROFLOXACIN 500 MG TAB PO (08:38)
[2018-03-23] MEDS: metroNIDAZOLE 500 MG TAB PO (08:38)
[2018-03-23] MEDS: DOCUSATE SODIUM 100 MG CAP PO (08:38)
[2018-03-23] MEDS: AMLODIPINE 5 MG TAB PO (08:38)
[2018-03-23] MEDS: NEOMYC/POLYMYX/BACIT 30 GM OINT TOP (08:39)
[2018-03-23] MEDS: ACCU-CHEK XX ×2 (08:39→21:01)
[2018-03-23] MEDS: ENOXAPARIN 30 MG/0.3 ML SYG SC (08:48)
[2018-03-23] MEDS: LEVALBUTEROL (HFA) 15 GM INHALER INH ×2 (09:46→15:09)
[2018-03-23] MEDS ORDERED: CEPHALEXIN 500 MG CAP PO (14:00)
[2018-03-23] MEDS: CEFTRIAXONE 1 GM/50 ML (PMX) 50 ML IVPB (16:56)
[2018-03-23 17:10] LABS: INR 1.28; PROTIME 16.2 Sec (11.9-14.9); PT RATIO 1.3
[2018-03-23 17:11] LABS: PARTIAL THROMBOPLASTIN TIME 64.5 Sec (25.0-35.0)
[2018-03-23] MEDS: EPOETIN 10000 UNITS/ML (NON ESRD/NON ONCOLOGY) SC (17:35)
[2018-03-23] MEDS: FUROSEMIDE 20 MG INJ IV (18:30)
[2018-03-24] MEDS: LEVALBUTEROL (HFA) 15 GM INHALER INH ×3 (00:03→17:11)
[2018-03-24 02:51] LABS: IMMEDIATE SPIN CROSSMATCH 1 4
[2018-03-24] MEDS: FUROSEMIDE 20 MG INJ IV (02:58)
[2018-03-24] MEDS: PANTOPRAZOLE 40 MG INJ IV (06:06)
[2018-03-24] MEDS ORDERED: GENTAMICIN IV PER PHARMACY XX (07:00)
[2018-03-24] MEDS: ACCU-CHEK XX ×2 (09:00→21:00)
[2018-03-24] MEDS: GENTAMICIN 0.1% 15 GM OINT TOP ×2 (09:00→21:29)
[2018-03-24] MEDS: NEOMYC/POLYMYX/BACIT 30 GM OINT TOP (09:00)
[2018-03-24] MEDS ORDERED: ENOXAPARIN 30 MG/0.3 ML SYG SC (09:00)
[2018-03-24 09:21] LABS: ADD MAN DIFF? NO
[2018-03-24 09:25] LABS: WHITE BLOOD COUNT 14.2 10^3/ul (4.8-10.8)
[2018-03-24 09:25] LABS: BASOPHILS % 0.1 % (0.0-2.0); EOSINOPHILS % 0.3 % (0.0-7.0); HEMOGLOBIN 8.8 g/dl (12.0-16.0); LYMPHOCYTES # 1.7 10^3/ul (0.8-2.9); LYMPHOCYTES % 11.9 % (15.0-51.0); MEAN CORPUSCULAR HEMOGLOBIN 30.4 pg (29.0-33.0); MEAN CORPUSCULAR HGB CONC 32.6 g/dl (32.0-37.0); MEAN CORPUSCULAR VOLUME 93.4 fl (82.0-101.0); MEAN PLATELET VOLUME 10.6 fl (7.4-10.4); MONOCYTE # 1.2 10^3/ul (0.3-0.9); MONOCYTES % 8.3 % (0.0-11.0); NEUTROPHIL # 11.1 10^3/ul (1.6-7.5); NEUTROPHILS % 78.7 % (39.0-77.0); PLATELET COUNT 185 10^3/UL (140-415); RED BLOOD COUNT 2.89 10^6/ul (4.20-5.40); RED CELL DISTRIBUTION WIDTH 18.8 % (11.5-14.5)
[2018-03-24] MEDS: SODIUM HYPOCHLORITE (1/40) 1 APPLIC BTL IRR (09:30)
[2018-03-24 09:39] LABS: ANION GAP 11 (8-16); BLOOD UREA NITROGEN 37 mg/dl (7-20); CALCIUM 8.9 mg/dl (8.4-10.2); CARBON DIOXIDE 27 mmol/L (21-31); CHLORIDE 109 mmol/L (97-110); CREATININE 0.99 mg/dl (0.44-1.00); GLUCOSE 162 mg/dl (70-220); SODIUM 143 mmol/L (135-144)
[2018-03-24] MEDS: GENTAMICIN 300 MG in DEXTROSE 5% 100 ML IVPB (11:26)
[2018-03-24 11:40] LABS: ADD UMIC YES; UR ASCORBIC ACID NEGATIVE (NEGATIVE); UR BACTERIA MODERATE /HPF (NONE SEEN); UR BILIRUBIN (Dip) NEGATIVE (NEGATIVE); UR BLOOD (Dip) 1+ mg/dL (NEGATIVE); UR CLARITY SLIGHTLY CLOUDY (CLEAR); UR COLOR YELLOW (YELLOW); UR GLUCOSE (Dip) NEGATIVE (NEGATIVE); UR KETONES (Dip) NEGATIVE (NEGATIVE); UR LEUKOCYTE ESTERASE (Dip) TRACE Leu/ul (NEGATIVE); UR MUCUS FEW /HPF (NONE SEEN); UR NITRITE (Dip) POSITIVE (NEGATIVE); UR RBC 1 /HPF (0-5); UR SPECIFIC GRAVITY (Dip) 1.016 (1.003-1.030); UR TOTAL PROTEIN (Dip) 1+ mg/dl (NEGATIVE); UR UROBILINOGEN (Dip) NEGATIVE (NEGATIVE); UR WBC 6 /HPF (0-5)
[2018-03-24 12:52] LABS: HEMATOCRIT 26.7 % (37.0-47.0); HEMOGLOBIN 8.6 g/dl (12.0-16.0)
[2018-03-24] MEDS: morphine 2 MG INJ IV (14:35)
[2018-03-24 16:47] LABS: HEMOGLOBIN 8.8 g/dl (12.0-16.0)
[2018-03-24 19:48] LABS: HEMATOCRIT 27.5 % (37.0-47.0); HEMOGLOBIN 8.8 g/dl (12.0-16.0)
[2018-03-24 20:12] LABS: GENTAMICIN,RANDOM 5.2 ug/ml
[2018-03-25] MEDS: morphine 2 MG INJ IV ×2 (00:36→05:33)
[2018-03-25 00:51] LABS: HEMATOCRIT 25.7 % (37.0-47.0); HEMOGLOBIN 8.2 g/dl (12.0-16.0)
[2018-03-25] MEDS: PANTOPRAZOLE 40 MG INJ IV (05:23)
[2018-03-25 06:16] LABS: ADD MAN DIFF? NO
[2018-03-25 06:25] LABS: WHITE BLOOD COUNT 13.7 10^3/ul (4.8-10.8)
[2018-03-25 06:25] LABS: BASOPHILS % 0.1 % (0.0-2.0); EOSINOPHILS # 0.5 10^3/ul (0.0-0.5); EOSINOPHILS % 3.3 % (0.0-7.0); HEMATOCRIT 24.4 % (37.0-47.0); HEMOGLOBIN 7.8 g/dl (12.0-16.0); LYMPHOCYTES # 1.9 10^3/ul (0.8-2.9); LYMPHOCYTES % 13.6 % (15.0-51.0); MEAN CORPUSCULAR HEMOGLOBIN 30.2 pg (29.0-33.0); MEAN CORPUSCULAR VOLUME 94.6 fl (82.0-101.0); MEAN PLATELET VOLUME 11.1 fl (7.4-10.4); MONOCYTE # 1.1 10^3/ul (0.3-0.9); MONOCYTES % 8.3 % (0.0-11.0); NEUTROPHIL # 10.1 10^3/ul (1.6-7.5); NEUTROPHILS % 74.1 % (39.0-77.0); PLATELET COUNT 191 10^3/UL (140-415); RED BLOOD COUNT 2.58 10^6/ul (4.20-5.40); RED CELL DISTRIBUTION WIDTH 19.3 % (11.5-14.5)
[2018-03-25 06:50] LABS: ANION GAP 10 (8-16); BLOOD UREA NITROGEN 47 mg/dl (7-20); CARBON DIOXIDE 27 mmol/L (21-31); CHLORIDE 109 mmol/L (97-110); CREATININE 1.11 mg/dl (0.44-1.00); GLUCOSE 128 mg/dl (70-220); POTASSIUM 4.4 mmol/L (3.5-5.1); SODIUM 142 mmol/L (135-144)
[2018-03-25] MEDS: LEVALBUTEROL (HFA) 15 GM INHALER INH ×3 (08:00→17:00)
[2018-03-25] MEDS: SODIUM HYPOCHLORITE (1/40) 1 APPLIC BTL IRR (09:12)
[2018-03-25] MEDS: NEOMYC/POLYMYX/BACIT 30 GM OINT TOP (09:12)
[2018-03-25] MEDS: ACCU-CHEK XX ×2 (09:16→21:00)
[2018-03-25 11:35] LABS: HEMOGLOBIN 7.6 g/dl (12.0-16.0)
[2018-03-25 11:58] LABS: PARTIAL THROMBOPLASTIN TIME 69.4 Sec (25.0-35.0)
[2018-03-25] MEDS: FENTAnyl PATCH 50 MCG/HR TRANSDERM (15:42)
[2018-03-25] MEDS: morphine 4 MG/ML VIAL IV ×2 (16:52→21:33)
[2018-03-25] MEDS: PHYTONADIONE 10 MG/ML INJ SC (17:34)
[2018-03-25] MEDS: SOD CHLORIDE 0.9% IV (17:35)
[2018-03-25] MEDS: DESMOPRESSIN IV (17:35)
[2018-03-25 20:33] LABS: HEMATOCRIT 27.3 % (37.0-47.0)
[2018-03-25 21:54] LABS: INR 1.09; PROTIME 14.3 Sec (11.9-14.9); PT RATIO 1.1
[2018-03-25 21:55] LABS: PARTIAL THROMBOPLASTIN TIME 61.5 Sec (25.0-35.0)
[2018-03-25] MEDS: GENTAMICIN 300 MG in DEXTROSE 5% 100 ML IVPB (23:19)
[2018-03-25 23:58] LABS: HEMATOCRIT 25.1 % (37.0-47.0)
[2018-03-26] MEDS: LEVALBUTEROL (HFA) 15 GM INHALER INH ×3 (00:02→15:17)
[2018-03-26 05:59] LABS: ADD MAN DIFF? NO
[2018-03-26 06:03] LABS: BASOPHILS % 0.2 % (0.0-2.0); EOSINOPHILS # 1.3 10^3/ul (0.0-0.5); HEMOGLOBIN 8.2 g/dl (12.0-16.0); LYMPHOCYTES # 1.8 10^3/ul (0.8-2.9); LYMPHOCYTES % 16.3 % (15.0-51.0); MEAN CORPUSCULAR HEMOGLOBIN 29.6 pg (29.0-33.0); MEAN CORPUSCULAR HGB CONC 31.5 g/dl (32.0-37.0); MEAN CORPUSCULAR VOLUME 93.9 fl (82.0-101.0); MEAN PLATELET VOLUME 11.1 fl (7.4-10.4); MONOCYTE # 0.8 10^3/ul (0.3-0.9); MONOCYTES % 7.5 % (0.0-11.0); NEUTROPHILS % 63.6 % (39.0-77.0); PLATELET COUNT 219 10^3/UL (140-415); RED BLOOD COUNT 2.77 10^6/ul (4.20-5.40); RED CELL DISTRIBUTION WIDTH 18.7 % (11.5-14.5)
[2018-03-26] MEDS: PANTOPRAZOLE 40 MG INJ IV (06:04)
[2018-03-26 06:21] LABS: INR 1.13; PROTIME 14.7 Sec (11.9-14.9); PT RATIO 1.1
[2018-03-26 06:22] LABS: PARTIAL THROMBOPLASTIN TIME 59.2 Sec (25.0-35.0)
[2018-03-26 06:33] LABS: ANION GAP 10 (8-16); BLOOD UREA NITROGEN 48 mg/dl (7-20); CALCIUM 8.9 mg/dl (8.4-10.2); CARBON DIOXIDE 28 mmol/L (21-31); CHLORIDE 108 mmol/L (97-110); CREATININE 0.83 mg/dl (0.44-1.00); GLUCOSE 137 mg/dl (70-220); MAGNESIUM 2.1 mg/dl (1.7-2.5); POTASSIUM 4.2 mmol/L (3.5-5.1); SODIUM 142 mmol/L (135-144)
[2018-03-26] MEDS: NEOMYC/POLYMYX/BACIT 30 GM OINT TOP (09:20)
[2018-03-26] MEDS: SODIUM HYPOCHLORITE (1/40) 1 APPLIC BTL IRR (09:22)
[2018-03-26] MEDS: ACCU-CHEK XX ×2 (09:22→21:00)
[2018-03-26] MEDS: morphine 2 MG INJ IV ×3 (09:28→16:20)
[2018-03-26] MEDS: DIVALPROEX SPRINKLE 125 MG CAP GTB ×2 (13:45→21:38)
[2018-03-26] MEDS: EPOETIN 10000 UNITS/ML (NON ESRD/NON ONCOLOGY) SC (16:21)
[2018-03-26] MEDS: morphine 4 MG/ML VIAL IV ×2 (18:03→22:16)
[2018-03-26 20:41] LABS: PARTIAL THROMBOPLASTIN TIME 55.7 Sec (25.0-35.0)
[2018-03-26] MEDS: PHYTONADIONE (1 MG/ML PO SYG) GTB (21:35)
[2018-03-26 21:52] LABS: 50/50 PTT IMMED 35.6 Sec
[2018-03-26] MEDS: LORAZEPAM 2 MG INJ IV (22:16)
[2018-03-27] MEDS: LEVALBUTEROL (HFA) 15 GM INHALER INH ×3 (00:57→16:54)
[2018-03-27 05:51] LABS: ADD MAN DIFF? NO
[2018-03-27] MEDS: PHYTONADIONE (1 MG/ML PO SYG) GTB ×3 (05:54→22:04)
[2018-03-27] MEDS: PANTOPRAZOLE 40 MG INJ IV (05:54)
[2018-03-27 06:01] LABS: WHITE BLOOD COUNT 9.3 10^3/ul (4.8-10.8)
[2018-03-27 06:01] LABS: BASOPHILS % 0.4 % (0.0-2.0); EOSINOPHILS # 0.8 10^3/ul (0.0-0.5); EOSINOPHILS % 8.4 % (0.0-7.0); HEMOGLOBIN 8.9 g/dl (12.0-16.0); LYMPHOCYTES # 1.6 10^3/ul (0.8-2.9); LYMPHOCYTES % 17.1 % (15.0-51.0); MEAN CORPUSCULAR HGB CONC 31.8 g/dl (32.0-37.0); MEAN CORPUSCULAR VOLUME 94.3 fl (82.0-101.0); MEAN PLATELET VOLUME 10.9 fl (7.4-10.4); MONOCYTE # 0.9 10^3/ul (0.3-0.9); MONOCYTES % 9.9 % (0.0-11.0); NEUTROPHIL # 5.9 10^3/ul (1.6-7.5); NEUTROPHILS % 63.8 % (39.0-77.0); PLATELET COUNT 289 10^3/UL (140-415); RED BLOOD COUNT 2.97 10^6/ul (4.20-5.40); RED CELL DISTRIBUTION WIDTH 17.6 % (11.5-14.5)
[2018-03-27 06:24] LABS: PARTIAL THROMBOPLASTIN TIME 48.9 Sec (25.0-35.0)
[2018-03-27 06:29] LABS: ANION GAP 12 (8-16); BLOOD UREA NITROGEN 41 mg/dl (7-20); CALCIUM 9.1 mg/dl (8.4-10.2); CARBON DIOXIDE 29 mmol/L (21-31); CHLORIDE 106 mmol/L (97-110); CREATININE 0.79 mg/dl (0.44-1.00); GLUCOSE 102 mg/dl (70-220); MAGNESIUM 1.9 mg/dl (1.7-2.5); POTASSIUM 4.1 mmol/L (3.5-5.1); SODIUM 143 mmol/L (135-144)
[2018-03-27] MEDS: morphine 4 MG/ML VIAL IV ×2 (08:44→16:19)
[2018-03-27] MEDS: DIVALPROEX SPRINKLE 125 MG CAP GTB ×3 (08:44→20:43)
[2018-03-27] MEDS: LORAZEPAM 2 MG INJ IV ×2 (08:44→19:17)
[2018-03-27] MEDS: NEOMYC/POLYMYX/BACIT 30 GM OINT TOP (08:45)
[2018-03-27] MEDS: SODIUM HYPOCHLORITE (1/40) 1 APPLIC BTL IRR (08:45)
[2018-03-27] MEDS: ACCU-CHEK XX ×2 (09:09→21:00)
[2018-03-27] MEDS: GENTAMICIN 300 MG in DEXTROSE 5% 100 ML IVPB (12:20)
[2018-03-27] MEDS: morphine 2 MG INJ IV (18:55)
[2018-03-28] MEDS: LEVALBUTEROL (HFA) 15 GM INHALER INH ×4 (00:33→23:03)
[2018-03-28] MEDS: LORAZEPAM 2 MG INJ IV ×2 (01:17→22:48)
[2018-03-28] MEDS: morphine 2 MG INJ IV ×3 (01:17→17:00)
[2018-03-28] MEDS: PANTOPRAZOLE 40 MG INJ IV (05:42)
[2018-03-28] MEDS: PHYTONADIONE (1 MG/ML PO SYG) GTB ×2 (05:42→12:20)
[2018-03-28 06:18] LABS: ADD MAN DIFF? NO
[2018-03-28 06:39] LABS: WHITE BLOOD COUNT 9.7 10^3/ul (4.8-10.8)
[2018-03-28 06:39] LABS: BASOPHIL # 0.1 10^3/ul (0.0-0.1); BASOPHILS % 0.5 % (0.0-2.0); EOSINOPHILS # 0.6 10^3/ul (0.0-0.5); HEMATOCRIT 27.9 % (37.0-47.0); HEMOGLOBIN 8.9 g/dl (12.0-16.0); LYMPHOCYTES # 1.8 10^3/ul (0.8-2.9); LYMPHOCYTES % 18.9 % (15.0-51.0); MEAN CORPUSCULAR HEMOGLOBIN 30.5 pg (29.0-33.0); MEAN CORPUSCULAR HGB CONC 31.9 g/dl (32.0-37.0); MEAN CORPUSCULAR VOLUME 95.5 fl (82.0-101.0); MEAN PLATELET VOLUME 10.7 fl (7.4-10.4); MONOCYTE # 0.9 10^3/ul (0.3-0.9); MONOCYTES % 8.8 % (0.0-11.0); NEUTROPHIL # 6.3 10^3/ul (1.6-7.5); NEUTROPHILS % 65.4 % (39.0-77.0); PLATELET COUNT 370 10^3/UL (140-415); RED BLOOD COUNT 2.92 10^6/ul (4.20-5.40)
[2018-03-28 06:40] LABS: INR 1.08; PROTIME 14.1 Sec (11.9-14.9); PT RATIO 1.1
[2018-03-28 06:42] LABS: PARTIAL THROMBOPLASTIN TIME 61.4 Sec (25.0-35.0)
[2018-03-28 07:21] LABS: ANION GAP 13 (8-16); BLOOD UREA NITROGEN 41 mg/dl (7-20); CALCIUM 9.1 mg/dl (8.4-10.2); CARBON DIOXIDE 25 mmol/L (21-31); CHLORIDE 106 mmol/L (97-110); CREATININE 0.86 mg/dl (0.44-1.00); GLUCOSE 92 mg/dl (70-220); MAGNESIUM 1.8 mg/dl (1.7-2.5); POTASSIUM 4.7 mmol/L (3.5-5.1); SODIUM 139 mmol/L (135-144)
[2018-03-28] MEDS: ACCU-CHEK XX ×2 (07:58→21:00)
[2018-03-28] MEDS: DIVALPROEX SPRINKLE 125 MG CAP GTB ×3 (08:00→22:37)
[2018-03-28] MEDS: NEOMYC/POLYMYX/BACIT 30 GM OINT TOP (08:00)
[2018-03-28] MEDS: SODIUM HYPOCHLORITE (1/40) 1 APPLIC BTL IRR (08:01)
[2018-03-28] MEDS: MAGNESIUM SULFATE 2 GM/50 ML 50 ML IVPB (12:20)
[2018-03-28] MEDS: NYSTATIN 30 GM POWDER BTL TOP ×2 (14:11→22:38)
[2018-03-28] MEDS: FENTAnyl PATCH 50 MCG/HR TRANSDERM (14:41)
[2018-03-28] MEDS: EPOETIN 10000 UNITS/ML (NON ESRD/NON ONCOLOGY) SC (16:08)
[2018-03-28] MEDS ORDERED: VITAMIN A & D 5 GM OINT PACKET TOP (17:08)
[2018-03-29] MEDS: morphine 2 MG INJ IV ×3 (03:21→21:35)
[2018-03-29] MEDS: PANTOPRAZOLE 40 MG INJ IV (05:36)
[2018-03-29 06:20] LABS: ADD MAN DIFF? NO
[2018-03-29 06:26] LABS: BASOPHILS % 0.2 % (0.0-2.0); EOSINOPHILS # 0.6 10^3/ul (0.0-0.5); EOSINOPHILS % 7.3 % (0.0-7.0); HEMATOCRIT 28.7 % (37.0-47.0); HEMOGLOBIN 9.2 g/dl (12.0-16.0); LYMPHOCYTES # 1.5 10^3/ul (0.8-2.9); LYMPHOCYTES % 18.2 % (15.0-51.0); MEAN CORPUSCULAR HEMOGLOBIN 30.2 pg (29.0-33.0); MEAN CORPUSCULAR HGB CONC 32.1 g/dl (32.0-37.0); MEAN CORPUSCULAR VOLUME 94.1 fl (82.0-101.0); MEAN PLATELET VOLUME 10.7 fl (7.4-10.4); MONOCYTE # 0.7 10^3/ul (0.3-0.9); MONOCYTES % 7.9 % (0.0-11.0); NEUTROPHIL # 5.4 10^3/ul (1.6-7.5); NEUTROPHILS % 65.8 % (39.0-77.0); PLATELET COUNT 423 10^3/UL (140-415); RED BLOOD COUNT 3.05 10^6/ul (4.20-5.40); RED CELL DISTRIBUTION WIDTH 16.2 % (11.5-14.5)
[2018-03-29 06:26] LABS: WHITE BLOOD COUNT 8.2 10^3/ul (4.8-10.8)
[2018-03-29 06:43] LABS: INR 1.07; PT RATIO 1.1
[2018-03-29 06:44] LABS: PARTIAL THROMBOPLASTIN TIME 59.2 Sec (25.0-35.0)
[2018-03-29 06:51] LABS: ANION GAP 11 (8-16); BLOOD UREA NITROGEN 39 mg/dl (7-20); CALCIUM 9.1 mg/dl (8.4-10.2); CARBON DIOXIDE 26 mmol/L (21-31); CHLORIDE 104 mmol/L (97-110); CREATININE 0.76 mg/dl (0.44-1.00); GLUCOSE 95 mg/dl (70-220); MAGNESIUM 2.2 mg/dl (1.7-2.5); POTASSIUM 4.1 mmol/L (3.5-5.1); SODIUM 137 mmol/L (135-144)
[2018-03-29] MEDS: SODIUM HYPOCHLORITE (1/40) 1 APPLIC BTL IRR (08:56)
[2018-03-29] MEDS: DIVALPROEX SPRINKLE 125 MG CAP GTB ×3 (08:56→21:31)
[2018-03-29] MEDS: NYSTATIN 30 GM POWDER BTL TOP ×2 (08:57→21:34)
[2018-03-29] MEDS: NEOMYC/POLYMYX/BACIT 30 GM OINT TOP (08:58)
[2018-03-29] MEDS: ACCU-CHEK XX ×2 (08:58→21:32)
[2018-03-29] MEDS: LEVALBUTEROL (HFA) 15 GM INHALER INH ×3 (11:11→23:01)
[2018-03-29] MEDS ORDERED: GENTAMICIN 300 MG in DEXTROSE 5% 100 ML IVPB (12:30)
[2018-03-29] MEDS: PHYTONADIONE 10 MG in DEXTROSE 5% 50 ML IVPB ×3 (12:46→23:13)
[2018-03-29] MEDS: HYDROCODONE/APAP (5/325) TAB PO (14:32)
[2018-03-29] MEDS: CHOLESTYRAMINE 4 GM PACKET PO (21:31)
[2018-03-30] MEDS: LORAZEPAM 2 MG INJ IV ×3 (01:25→22:16)
[2018-03-30] MEDS: PANTOPRAZOLE 40 MG INJ IV (05:40)
[2018-03-30] MEDS: morphine 2 MG INJ IV ×3 (05:41→14:55)
[2018-03-30 07:51] LABS: ADD MAN DIFF? NO
[2018-03-30 07:59] LABS: WHITE BLOOD COUNT 7.3 10^3/ul (4.8-10.8)
[2018-03-30 07:59] LABS: BASOPHILS % 0.5 % (0.0-2.0); EOSINOPHILS # 0.4 10^3/ul (0.0-0.5); EOSINOPHILS % 5.5 % (0.0-7.0); HEMATOCRIT 28.7 % (37.0-47.0); HEMOGLOBIN 9.1 g/dl (12.0-16.0); LYMPHOCYTES # 1.4 10^3/ul (0.8-2.9); LYMPHOCYTES % 19.2 % (15.0-51.0); MEAN CORPUSCULAR HEMOGLOBIN 29.4 pg (29.0-33.0); MEAN CORPUSCULAR HGB CONC 31.7 g/dl (32.0-37.0); MEAN CORPUSCULAR VOLUME 92.9 fl (82.0-101.0); MEAN PLATELET VOLUME 10.7 fl (7.4-10.4); MONOCYTE # 0.7 10^3/ul (0.3-0.9); MONOCYTES % 9.6 % (0.0-11.0); NEUTROPHIL # 4.7 10^3/ul (1.6-7.5); NEUTROPHILS % 64.4 % (39.0-77.0); PLATELET COUNT 427 10^3/UL (140-415); RED BLOOD COUNT 3.09 10^6/ul (4.20-5.40); RED CELL DISTRIBUTION WIDTH 15.9 % (11.5-14.5)
[2018-03-30 08:16] LABS: PARTIAL THROMBOPLASTIN TIME 59.6 Sec (25.0-35.0)
[2018-03-30] MEDS: LEVALBUTEROL (HFA) 15 GM INHALER INH ×3 (08:17→23:13)
[2018-03-30 08:21] LABS: ANION GAP 15 (8-16); BLOOD UREA NITROGEN 37 mg/dl (7-20); CALCIUM 9.1 mg/dl (8.4-10.2); CARBON DIOXIDE 25 mmol/L (21-31); CHLORIDE 105 mmol/L (97-110); CREATININE 0.74 mg/dl (0.44-1.00); GLUCOSE 96 mg/dl (70-220); MAGNESIUM 2.1 mg/dl (1.7-2.5); POTASSIUM 4.1 mmol/L (3.5-5.1); SODIUM 141 mmol/L (135-144)
[2018-03-30] MEDS: DIVALPROEX SPRINKLE 125 MG CAP GTB ×3 (08:37→21:58)
[2018-03-30] MEDS: CHOLESTYRAMINE 4 GM PACKET PO ×2 (08:38→21:58)
[2018-03-30] MEDS: ACCU-CHEK XX ×2 (08:38→21:59)
[2018-03-30] MEDS: SODIUM HYPOCHLORITE (1/40) 1 APPLIC BTL IRR (08:38)
[2018-03-30] MEDS: NEOMYC/POLYMYX/BACIT 30 GM OINT TOP (08:38)
[2018-03-30] MEDS: NYSTATIN 30 GM POWDER BTL TOP ×2 (08:38→21:59)
[2018-03-30] MEDS: PHYTONADIONE 10 MG in DEXTROSE 5% 50 ML IVPB ×3 (08:52→21:58)
[2018-03-30] MEDS: EPOETIN 10000 UNITS/ML (NON ESRD/NON ONCOLOGY) SC (18:12)
[2018-03-31] MEDS: morphine 4 MG/ML VIAL IV (01:14)
[2018-03-31] MEDS: PANTOPRAZOLE 40 MG INJ IV (05:24)
[2018-03-31 06:41] LABS: PARTIAL THROMBOPLASTIN TIME 61.8 Sec (25.0-35.0)
[2018-03-31] MEDS: LEVALBUTEROL (HFA) 15 GM INHALER INH ×3 (08:11→23:58)
[2018-03-31] MEDS: DIVALPROEX SPRINKLE 125 MG CAP GTB ×3 (08:32→21:24)
[2018-03-31] MEDS: NYSTATIN 30 GM POWDER BTL TOP ×2 (08:32→21:24)
[2018-03-31] MEDS: CHOLESTYRAMINE 4 GM PACKET PO ×2 (08:32→21:23)
[2018-03-31] MEDS: HYDROCODONE/APAP (5/325) TAB PO (08:32)
[2018-03-31] MEDS: NEOMYC/POLYMYX/BACIT 30 GM OINT TOP (08:33)
[2018-03-31] MEDS: ACCU-CHEK XX ×2 (08:33→21:24)
[2018-03-31] MEDS: SODIUM HYPOCHLORITE (1/40) 1 APPLIC BTL IRR (08:33)
[2018-03-31] MEDS: LORAZEPAM 2 MG INJ IV (10:33)
[2018-03-31] MEDS: FENTAnyl PATCH 50 MCG/HR TRANSDERM (15:07)
[2018-03-31] MEDS: morphine 2 MG INJ IV (19:02)
[2018-04-01] MEDS: LORAZEPAM 2 MG INJ IV ×2 (00:17→22:09)
[2018-04-01] MEDS: morphine 2 MG INJ IV ×2 (01:19→23:09)
[2018-04-01] MEDS: morphine 4 MG/ML VIAL IV ×2 (03:51→06:23)
[2018-04-01] MEDS: PANTOPRAZOLE 40 MG INJ IV (05:16)
[2018-04-01 05:45] LABS: ADD MAN DIFF? NO
[2018-04-01 05:54] LABS: BASOPHILS % 0.6 % (0.0-2.0); EOSINOPHILS # 0.5 10^3/ul (0.0-0.5); EOSINOPHILS % 7.1 % (0.0-7.0); HEMATOCRIT 28.6 % (37.0-47.0); LYMPHOCYTES # 1.5 10^3/ul (0.8-2.9); LYMPHOCYTES % 21.9 % (15.0-51.0); MEAN CORPUSCULAR HEMOGLOBIN 29.3 pg (29.0-33.0); MEAN CORPUSCULAR HGB CONC 31.5 g/dl (32.0-37.0); MEAN CORPUSCULAR VOLUME 93.2 fl (82.0-101.0); MEAN PLATELET VOLUME 10.5 fl (7.4-10.4); MONOCYTE # 0.4 10^3/ul (0.3-0.9); NEUTROPHIL # 4.4 10^3/ul (1.6-7.5); NEUTROPHILS % 63.8 % (39.0-77.0); PLATELET COUNT 432 10^3/UL (140-415); RED BLOOD COUNT 3.07 10^6/ul (4.20-5.40); RED CELL DISTRIBUTION WIDTH 15.4 % (11.5-14.5)
[2018-04-01 05:54] LABS: WHITE BLOOD COUNT 6.9 10^3/ul (4.8-10.8)
[2018-04-01 06:13] LABS: PARTIAL THROMBOPLASTIN TIME 59.2 Sec (25.0-35.0)
[2018-04-01 06:18] LABS: ALANINE AMINOTRANSFERASE 7 IU/L (13-69); ALBUMIN/GLOBULIN RATIO 0.83; ALKALINE PHOSPHATASE 126 IU/L (42-121); ANION GAP 14 (8-16); ASPARTATE AMINO TRANSFERASE 24 IU/L (15-46); BILIRUBIN,INDIRECT 0.3 mg/dl (0-1.1); BILIRUBIN,TOTAL 0.3 mg/dl (0.2-1.3); BLOOD UREA NITROGEN 31 mg/dl (7-20); CALCIUM 9.1 mg/dl (8.4-10.2); CARBON DIOXIDE 26 mmol/L (21-31); CHLORIDE 102 mmol/L (97-110); CREATININE 0.74 mg/dl (0.44-1.00); GLUCOSE 104 mg/dl (70-220); MAGNESIUM 1.9 mg/dl (1.7-2.5); POTASSIUM 4.3 mmol/L (3.5-5.1); SODIUM 138 mmol/L (135-144); TOTAL PROTEIN 6.6 g/dl (6.1-8.1)
[2018-04-01] MEDS: CHOLESTYRAMINE 4 GM PACKET PO ×2 (08:41→21:51)
[2018-04-01] MEDS: DIVALPROEX SPRINKLE 125 MG CAP GTB ×3 (08:41→21:51)
[2018-04-01] MEDS: NYSTATIN 30 GM POWDER BTL TOP ×2 (08:57→21:52)
[2018-04-01] MEDS: SODIUM HYPOCHLORITE (1/40) 1 APPLIC BTL IRR (08:57)
[2018-04-01] MEDS: NEOMYC/POLYMYX/BACIT 30 GM OINT TOP (08:57)
[2018-04-01] MEDS: ACCU-CHEK XX ×2 (08:58→21:53)
[2018-04-01] MEDS: LEVALBUTEROL (HFA) 15 GM INHALER INH ×2 (11:57→17:22)
[2018-04-01] MEDS: HYDROCODONE/APAP (5/325) TAB PO (14:46)
[2018-04-02] MEDS: LORAZEPAM 2 MG INJ IV ×3 (00:58→13:24)
[2018-04-02] MEDS: LEVALBUTEROL (HFA) 15 GM INHALER INH ×4 (01:21→23:35)
[2018-04-02] MEDS: PANTOPRAZOLE 40 MG INJ IV (05:59)
[2018-04-02 06:07] LABS: ADD MAN DIFF? NO
[2018-04-02 06:13] LABS: WHITE BLOOD COUNT 6.3 10^3/ul (4.8-10.8)
[2018-04-02 06:13] LABS: BASOPHILS % 0.5 % (0.0-2.0); EOSINOPHILS # 0.4 10^3/ul (0.0-0.5); EOSINOPHILS % 6.9 % (0.0-7.0); HEMATOCRIT 29.2 % (37.0-47.0); HEMOGLOBIN 9.1 g/dl (12.0-16.0); LYMPHOCYTES # 1.2 10^3/ul (0.8-2.9); LYMPHOCYTES % 19.4 % (15.0-51.0); MEAN CORPUSCULAR HEMOGLOBIN 29.4 pg (29.0-33.0); MEAN CORPUSCULAR HGB CONC 31.2 g/dl (32.0-37.0); MEAN CORPUSCULAR VOLUME 94.2 fl (82.0-101.0); MEAN PLATELET VOLUME 9.9 fl (7.4-10.4); MONOCYTE # 0.3 10^3/ul (0.3-0.9); MONOCYTES % 5.2 % (0.0-11.0); NEUTROPHIL # 4.3 10^3/ul (1.6-7.5); NEUTROPHILS % 67.2 % (39.0-77.0); PLATELET COUNT 445 10^3/UL (140-415); RED CELL DISTRIBUTION WIDTH 15.1 % (11.5-14.5)
[2018-04-02 06:38] LABS: PARTIAL THROMBOPLASTIN TIME 58.5 Sec (25.0-35.0)
[2018-04-02 06:40] LABS: ANION GAP 13 (8-16); BLOOD UREA NITROGEN 31 mg/dl (7-20); CALCIUM 9.1 mg/dl (8.4-10.2); CARBON DIOXIDE 27 mmol/L (21-31); CHLORIDE 103 mmol/L (97-110); CREATININE 0.74 mg/dl (0.44-1.00); GLUCOSE 113 mg/dl (70-220); MAGNESIUM 1.8 mg/dl (1.7-2.5); POTASSIUM 4.3 mmol/L (3.5-5.1); SODIUM 139 mmol/L (135-144)
[2018-04-02] MEDS: ACCU-CHEK XX ×2 (09:00→21:00)
[2018-04-02] MEDS: morphine 4 MG/ML VIAL IV ×2 (09:18→16:49)
[2018-04-02] MEDS: CHOLESTYRAMINE 4 GM PACKET PO ×2 (09:21→22:13)
[2018-04-02] MEDS: DIVALPROEX SPRINKLE 125 MG CAP GTB ×3 (09:21→22:13)
[2018-04-02] MEDS: NYSTATIN 30 GM POWDER BTL TOP ×2 (09:21→22:14)
[2018-04-02] MEDS: SODIUM HYPOCHLORITE (1/40) 1 APPLIC BTL IRR (09:22)
[2018-04-02] MEDS: NEOMYC/POLYMYX/BACIT 30 GM OINT TOP (09:24)
[2018-04-02] MEDS: MAGNESIUM SULFATE 2 GM/50 ML 50 ML IVPB (11:35)
[2018-04-02] MEDS: EPOETIN 10000 UNITS/ML (NON ESRD/NON ONCOLOGY) SC (16:44)
[2018-04-03] MEDS: HYDROCODONE/APAP (5/325) TAB PO ×2 (00:25→20:07)
[2018-04-03] MEDS: morphine 2 MG INJ IV ×2 (02:10→09:14)
[2018-04-03] MEDS: LORAZEPAM 2 MG INJ IV ×3 (03:34→23:42)
[2018-04-03 06:02] LABS: ADD MAN DIFF? NO
[2018-04-03 06:11] LABS: BASOPHILS % 0.5 % (0.0-2.0); EOSINOPHILS # 0.4 10^3/ul (0.0-0.5); EOSINOPHILS % 5.8 % (0.0-7.0); HEMATOCRIT 31.3 % (37.0-47.0); HEMOGLOBIN 9.9 g/dl (12.0-16.0); LYMPHOCYTES # 1.4 10^3/ul (0.8-2.9); MEAN CORPUSCULAR HEMOGLOBIN 29.3 pg (29.0-33.0); MEAN CORPUSCULAR HGB CONC 31.6 g/dl (32.0-37.0); MEAN CORPUSCULAR VOLUME 92.6 fl (82.0-101.0); MONOCYTE # 0.4 10^3/ul (0.3-0.9); MONOCYTES % 5.1 % (0.0-11.0); NEUTROPHIL # 5.3 10^3/ul (1.6-7.5); NEUTROPHILS % 69.8 % (39.0-77.0); PLATELET COUNT 509 10^3/UL (140-415); RED BLOOD COUNT 3.38 10^6/ul (4.20-5.40); RED CELL DISTRIBUTION WIDTH 15.2 % (11.5-14.5)
[2018-04-03 06:11] LABS: WHITE BLOOD COUNT 7.7 10^3/ul (4.8-10.8)
[2018-04-03 06:26] LABS: PARTIAL THROMBOPLASTIN TIME 64.9 Sec (25.0-35.0)
[2018-04-03] MEDS: PANTOPRAZOLE 40 MG INJ IV (06:32)
[2018-04-03] MEDS: morphine 4 MG/ML VIAL IV ×2 (06:32→18:30)
[2018-04-03 06:39] LABS: ANION GAP 11 (8-16); BLOOD UREA NITROGEN 33 mg/dl (7-20); CALCIUM 9.7 mg/dl (8.4-10.2); CARBON DIOXIDE 29 mmol/L (21-31); CHLORIDE 99 mmol/L (97-110); CREATININE 0.89 mg/dl (0.44-1.00); GLUCOSE 112 mg/dl (70-220); MAGNESIUM 2.5 mg/dl (1.7-2.5); POTASSIUM 4.5 mmol/L (3.5-5.1); SODIUM 134 mmol/L (135-144)
[2018-04-03] MEDS: LEVALBUTEROL (HFA) 15 GM INHALER INH ×3 (07:48→23:17)
[2018-04-03] MEDS: CHOLESTYRAMINE 4 GM PACKET PO ×2 (09:14→20:07)
[2018-04-03] MEDS: DIVALPROEX SPRINKLE 125 MG CAP GTB ×3 (09:14→20:07)
[2018-04-03] MEDS: NYSTATIN 30 GM POWDER BTL TOP ×2 (09:15→20:07)
[2018-04-03] MEDS: NEOMYC/POLYMYX/BACIT 30 GM OINT TOP (09:15)
[2018-04-03] MEDS: SODIUM HYPOCHLORITE (1/40) 1 APPLIC BTL IRR (09:15)
[2018-04-03] MEDS: ACCU-CHEK XX ×2 (09:15→21:00)
[2018-04-03] MEDS: [UNRECOGNIZED DRUG - OTHER] XX ×2 (09:30→17:30)
[2018-04-03 10:56] LABS: FACTOR VIII ACTIVITY 187 % normal (50-180)
[2018-04-03] MEDS: FENTAnyl PATCH 50 MCG/HR TRANSDERM (14:01)
[2018-04-04] MEDS: LORAZEPAM 2 MG INJ IV ×4 (02:00→12:04)
[2018-04-04] MEDS: [UNRECOGNIZED DRUG - OTHER] XX ×2 (02:05→10:46)
[2018-04-04] MEDS: morphine 4 MG/ML VIAL IV (04:21)
[2018-04-04] MEDS: PANTOPRAZOLE 40 MG INJ IV (05:11)
[2018-04-04 06:39] LABS: PARTIAL THROMBOPLASTIN TIME 54.8 Sec (25.0-35.0)
[2018-04-04] MEDS: LEVALBUTEROL (HFA) 15 GM INHALER INH (07:48)
[2018-04-04] MEDS: CHOLESTYRAMINE 4 GM PACKET PO (08:54)
[2018-04-04] MEDS: NYSTATIN 30 GM POWDER BTL TOP (08:56)
[2018-04-04] MEDS: SODIUM HYPOCHLORITE (1/40) 1 APPLIC BTL IRR (09:06)
[2018-04-04] MEDS: NEOMYC/POLYMYX/BACIT 30 GM OINT TOP (09:06)
[2018-04-04] MEDS: DIVALPROEX SPRINKLE 125 MG CAP GTB ×2 (10:34→13:23)
== END 2018-04-04 15:45 | DRG 3 ==
LOC: REC 11:54 → ICU 02-15 06:22 → 6WM 03-23 06:13 → ICU 03-23 06:13 → MS1 22:47 → ICU 02-15 06:22 → REC 22:47 → MS1 02-07 04:40 → REC 02-07 04:40 → MS1 02-07 04:40 → REC 02-07 04:40 → MS1 02-07 04:06 → REC 02-07 04:37 → ICU 02-07 07:29 → MS1 02-07 04:37 → ICU 02-15 06:22 → REC 02-07 04:06 → ICU 02-19 19:49 → 6WM 03-23 06:13 → REC 02-07 04:40 → MS1 02-07 04:40 → REC 02-07 04:40 → ICU 02-07 07:29
PROVIDERS: Surgery
PROC: 0DBN4ZZ Excision of Sigmoid Colon, Percutaneous Endoscopic Approach (ICD-10-PCS; principal; 2018-02-02 14:30)
PROC: 0DBP4ZZ Excision of Rectum, Percutaneous Endoscopic Approach (ICD-10-PCS; 2018-02-02 14:30)
PROC: 0B110F4 Bypass Trachea to Cutaneous with Tracheostomy Device, Open Approach (ICD-10-PCS; 2018-02-02 15:06)
PROC: 5A1955Z Respiratory Ventilation, Greater than 96 Consecutive Hours (ICD-10-PCS; 2018-02-02 15:06)
PROC: 0D1B0Z4 Bypass Ileum to Cutaneous, Open Approach (ICD-10-PCS; 2018-02-02 15:06)
PROC: 0W9F0ZZ Drainage of Abdominal Wall, Open Approach (ICD-10-PCS; 2018-02-02 15:06)
PROC: 3E0336Z Introduction of Nutritional Substance into Peripheral Vein, Percutaneous Approach (ICD-10-PCS; 2018-02-02 15:06)
PROC: 0DH63UZ Insertion of Feeding Device into Stomach, Percutaneous Approach (ICD-10-PCS; 2018-02-02 15:06)
PROC: 02HV33Z Insertion of Infusion Device into Superior Vena Cava, Percutaneous Approach (ICD-10-PCS; 2018-02-02 15:06)
PROC: B548ZZA Ultrasonography of Superior Vena Cava, Guidance (ICD-10-PCS; 2018-02-02 15:06)
PROC: 30233N1 Transfusion of Nonautologous Red Blood Cells into Peripheral Vein, Percutaneous Approach (ICD-10-PCS; 2018-02-02 15:06)
DX: K57.20 Diverticulitis of large intestine with perforation and abscess without bleeding (principal); R65.21 Severe sepsis with septic shock; N17.0 Acute kidney failure with tubular necrosis; A41.52 Sepsis due to Pseudomonas; K65.1 Peritoneal abscess; G92 Toxic encephalopathy; Z68.41 Body mass index [BMI] 40.0-44.9, adult; L03.311 Cellulitis of abdominal wall; K91.89 Other postprocedural complications and disorders of digestive system; E87.2 Acidosis; K56.0 Paralytic ileus; Z99.11 Dependence on respirator [ventilator] status; D61.818 Other pancytopenia; D68.9 Coagulation defect, unspecified; G62.81 Critical illness polyneuropathy; G72.81 Critical illness myopathy; T81.4XXA Infection following a procedure, initial encounter; L02.211 Cutaneous abscess of abdominal wall; J96.11 Chronic respiratory failure with hypoxia; N73.9 Female pelvic inflammatory disease, unspecified; E66.01 Morbid (severe) obesity due to excess calories; Z71.3 Dietary counseling and surveillance; G40.909 Epilepsy, unspecified, not intractable, without status epilepticus; R73.03 Prediabetes; F70 Mild intellectual disabilities; D50.9 Iron deficiency anemia, unspecified; Y83.2 Surgical operation with anastomosis, bypass or graft as the cause of abnormal reaction of the patient, or of later complication, without mention of misadventure at the time of the procedure; Y73.8 Miscellaneous gastroenterology and urology devices associated with adverse incidents, not elsewhere classified; Y92.239 Unspecified place in hospital as the place of occurrence of the external cause; M81.0 Age-related osteoporosis without current pathological fracture; E83.51 Hypocalcemia; E88.09 Other disorders of plasma-protein metabolism, not elsewhere classified; I11.0 Hypertensive heart disease with heart failure; I50.9 Heart failure, unspecified; I35.0 Nonrheumatic aortic (valve) stenosis; Y83.8 Other surgical procedures as the cause of abnormal reaction of the patient, or of later complication, without mention of misadventure at the time of the procedure; G47.30 Sleep apnea, unspecified; E87.6 Hypokalemia; E83.42 Hypomagnesemia; M79.81 Nontraumatic hematoma of soft tissue
CPT/HCPCS: 36430; 36569; 36600; 71045; 72192; 74018; 74176; 74177; 76937; 77012; 80048; 80053; 80076; 80164; 80170; 81001; 82150; 82533; 82668; 82728; 82803; 82962; 83540; 83605; 83690; 83735; 83880; 84100; 84134; 84145; 84155; 84300; 84439; 84443; 84478; 85014; 85018; 85025; 85045; 85240; 85250; 85270; 85280; 85335; 85378; 85384; 85610; 85730; 86850; 86900; 86901; 86920; 87040; 87070; 87075; 87081; 87086; 87102; 87116; 88307; 89190; 89220; 93005; 93306; 93970; 94002; 94003; 94640; 94770

== ENCOUNTER → 2018-09-03 | Outpatient (CLI) | payer MEDICARE, OTHER ==
[2018-09-03] MEDS: IOHEXOL 300MG/ML 150 ML BTL (11:15)
[2018-09-03] MEDS: SOD CHLORIDE 0.9% 100 ML (11:15)
[2018-09-03] MEDS: IOHEXOL 300MG/ML 30 ML BTL ×2 (11:27)
== END | disposition home or self-care (01) ==
LOC: C/S 09:16
DX: K62.89 Other specified diseases of anus and rectum (principal)
CPT/HCPCS: 74177

== ENCOUNTER → 2018-10-01 | Outpatient (CLI) | payer MEDICARE, OTHER | END | disposition home or self-care (01) | LOC: PUL 11:34 | DX: R06.02 Shortness of breath (principal) | CPT/HCPCS: 94010 ==

== ENCOUNTER 2019-01-11 09:59 | Inpatient (IN) | payer MEDICARE, OTHER ==
[~2019-01-11 09:59] MED LIST changes: -ACETAMINOPHEN 1000 MG/100 ML IVPB; -ALBUMIN HUMAN 5% 250 ML INJ; -CA CHLORIDE 10% 10 ML SYRINGE; -CEFAZOLIN 1 GM INJ; +CEFAZOLIN 2 GM/50 ML (PMX) 50 ML IVPB; -DEXAMETHASONE 4 MG/ML 1 ML INJ; +EPHEDrine 25 MG/5 ML SYG; -ONDANSETRON 4 MG INJ; +PHENYLephrine (100 MCG/ML) 10ML SYG; -SUGAMMADEX SODIUM 200 MG/2 ML VIAL IV; -metroNIDAZOLE 500 MG/100 ML NS IVPB
[2019-01-11] MEDS ORDERED: MIDAZOLAM 1 MG/ML 2 ML INJ (14:29)
[2019-01-11] MEDS ORDERED: ETOMIDATE 20 MG INJ (14:29)
[2019-01-11] MEDS ORDERED: ROCURONIUM 50 MG INJ (14:29)
[2019-01-11] MEDS ORDERED: LIDOCAINE 1% (MDV) 20 ML INJ (14:29)
[2019-01-11] MEDS ORDERED: FENTAnyl 50 MCG/ML VIAL (16:35)
[2019-01-11] MEDS: LIDOCAINE 1% (MPF) 30 ML INJ (16:40)
[2019-01-11] MEDS: BUPIVACAINE 0.5%/EPI (SDV) 30 ML INJ (16:40)
[2019-01-11] MEDS ORDERED: DEXAMETHASONE 4 MG/ML 5 ML INJ (17:23)
[2019-01-11] MEDS ORDERED: ONDANSETRON 4 MG INJ (17:23)
[2019-01-11] MEDS ORDERED: HYDROmorphONE 1 MG/5 ML IV SYRINGE IV ×2 (18:00)
[2019-01-11] MEDS ORDERED: LABETALOL HCL 20MG INJ IV (18:00)
[2019-01-11] MEDS ORDERED: NALOXONE (0.4 MG/ML) INJ IV (18:00)
[2019-01-11] MEDS ORDERED: ONDANSETRON 4 MG INJ IV (18:00)
[2019-01-11] MEDS ORDERED: FENTAnyl 2MCG/ML-ROPIV 0.2% 100 ML BAG EPI (18:00)
[2019-01-11] MEDS ORDERED: hydrALAzine 20 MG INJ IV (18:00)
[2019-01-11] MEDS ORDERED: SUGAMMADEX SODIUM 200 MG/2 ML VIAL IV (18:03)
[2019-01-11] MEDS ORDERED: IBUPROFEN 800 MG TAB PO (18:30)
[2019-01-11] MEDS ORDERED: HYDROCODONE/APAP (5/325) TAB PO (18:30)
[2019-01-11] MEDS ORDERED: ACETAMINOPHEN 325 MG TAB PO (18:30)
[2019-01-11] MEDS ORDERED: EPHEDrine 25 MG/5 ML SYG (18:33)
[2019-01-11] MEDS ORDERED: EPHEDrine 25 MG/5 ML SYG IV (19:00)
[2019-01-11] MEDS: FENTAnyl 2MCG/ML-ROPIV 0.2% 100 ML BAG EPI (19:20)
[2019-01-11] MEDS ORDERED: LACTATED RINGER'S 500 ML IV (19:30)
[2019-01-11 20:09] LABS: ADD MAN DIFF? NO
[2019-01-11 20:13] LABS: WHITE BLOOD COUNT 7.3 10^3/ul (4.8-10.8)
[2019-01-11 20:13] LABS: BASOPHIL # 0.1 10^3/ul (0.0-0.1); BASOPHILS % 0.7 % (0.0-2.0); EOSINOPHILS % 0.3 % (0.0-7.0); HEMATOCRIT 28.8 % (37.0-47.0); HEMOGLOBIN 9.6 g/dl (12.0-16.0); LYMPHOCYTES % 14.1 % (15.0-51.0); MEAN CORPUSCULAR HGB CONC 33.3 g/dl (32.0-37.0); MEAN PLATELET VOLUME 9.5 fl (7.4-10.4); MONOCYTE # 0.3 10^3/ul (0.3-0.9); MONOCYTES % 4.1 % (0.0-11.0); NEUTROPHIL # 5.8 10^3/ul (1.6-7.5); NEUTROPHILS % 79.8 % (39.0-77.0); PLATELET COUNT 143 10^3/UL (140-415); RED BLOOD COUNT 2.91 10^6/ul (4.20-5.40); RED CELL DISTRIBUTION WIDTH 14.4 % (11.5-14.5)
[2019-01-11] MEDS ORDERED: D5W-0.45 NACL + KCL 20 MEQ 1,000 ML IV (20:21)
[2019-01-11 20:22] LABS: HOLD TRANSMISSIONS 1
[2019-01-11 20:30] LABS: LACTIC ACID 1.8 mmol/L (0.5-2.0)
[2019-01-11 20:33] LABS: ALANINE AMINOTRANSFERASE 13 IU/L (13-69); ALBUMIN 2.3 g/dl (3.3-4.9); ALBUMIN/GLOBULIN RATIO 0.82; ALKALINE PHOSPHATASE 61 IU/L (42-121); ANION GAP 5 (5-13); ASPARTATE AMINO TRANSFERASE 36 IU/L (15-46); BILIRUBIN,INDIRECT 0.1 mg/dl (0-1.1); BILIRUBIN,TOTAL 0.1 mg/dl (0.2-1.3); BLOOD UREA NITROGEN 15 mg/dl (7-20); CALCIUM 7.5 mg/dl (8.4-10.2); CARBON DIOXIDE 18 mmol/L (21-31); CHLORIDE 116 mmol/L (97-110); CREATINE KINASE 36 IU/L (23-200); CREATININE 0.77 mg/dl (0.44-1.00); GLUCOSE 135 mg/dl (70-220); POTASSIUM 3.5 mmol/L (3.5-5.1); SODIUM 139 mmol/L (135-144); TOTAL PROTEIN 5.1 g/dl (6.1-8.1)
[2019-01-11 20:34] LABS: INR 1.02; PROTIME 13.5 Sec (11.9-14.9); PT RATIO 1.1
[2019-01-11] MEDS: D5W-0.45 NACL + KCL 20 MEQ 1,000 ML IV (20:42)
[2019-01-11 20:43] LABS: CK INDEX 2.7; CK-MB 0.98 ng/ml (0.0-2.4); TROPONIN-I < 0.012 ng/ml (0.000-0.120)
[2019-01-11 21:02] LABS: PARTIAL THROMBOPLASTIN TIME 45.7 Sec (23.0-35.0)
[2019-01-11] MEDS: HYDROmorphONE 0.5 MG/0.5 ML SYG IV (23:23)
[2019-01-12] MEDS: FENTAnyl 2MCG/ML-ROPIV 0.2% 100 ML BAG EPI ×2 (01:11→06:10)
[2019-01-12 05:56] LABS: ADD MAN DIFF? NO
[2019-01-12 05:58] LABS: BASOPHILS % 0.3 % (0.0-2.0); HEMATOCRIT 34.1 % (37.0-47.0); HEMOGLOBIN 11.3 g/dl (12.0-16.0); LYMPHOCYTES # 0.7 10^3/ul (0.8-2.9); LYMPHOCYTES % 5.8 % (15.0-51.0); MEAN CORPUSCULAR HEMOGLOBIN 32.9 pg (29.0-33.0); MEAN CORPUSCULAR HGB CONC 33.1 g/dl (32.0-37.0); MEAN CORPUSCULAR VOLUME 99.4 fl (82.0-101.0); MONOCYTE # 0.6 10^3/ul (0.3-0.9); MONOCYTES % 4.9 % (0.0-11.0); NEUTROPHIL # 10.9 10^3/ul (1.6-7.5); NEUTROPHILS % 87.7 % (39.0-77.0); PLATELET COUNT 261 10^3/UL (140-415); RED BLOOD COUNT 3.43 10^6/ul (4.20-5.40); RED CELL DISTRIBUTION WIDTH 14.6 % (11.5-14.5)
[2019-01-12 05:58] LABS: WHITE BLOOD COUNT 12.4 10^3/ul (4.8-10.8)
[2019-01-12 06:46] LABS: ANION GAP 11 (5-13); BLOOD UREA NITROGEN 15 mg/dl (7-20); CALCIUM 8.4 mg/dl (8.4-10.2); CARBON DIOXIDE 16 mmol/L (21-31); CHLORIDE 113 mmol/L (97-110); CREATININE 0.94 mg/dl (0.44-1.00); GLUCOSE 190 mg/dl (70-220); POTASSIUM 4.4 mmol/L (3.5-5.1); SODIUM 140 mmol/L (135-144)
[2019-01-12] MEDS: D5W-0.45 NACL + KCL 20 MEQ 1,000 ML IV (13:32)
[2019-01-12] MEDS: HYDROmorphONE 0.5 MG/0.5 ML SYG IV ×4 (14:38→22:03)
[2019-01-13] MEDS: HYDROmorphONE 0.5 MG/0.5 ML SYG IV ×6 (02:00→21:37)
[2019-01-13 05:13] LABS: ADD MAN DIFF? NO
[2019-01-13 05:19] LABS: WHITE BLOOD COUNT 6.6 10^3/ul (4.8-10.8)
[2019-01-13 05:19] LABS: BASOPHILS % 0.3 % (0.0-2.0); EOSINOPHILS % 0.2 % (0.0-7.0); HEMATOCRIT 28.3 % (37.0-47.0); HEMOGLOBIN 9.4 g/dl (12.0-16.0); LYMPHOCYTES # 1.6 10^3/ul (0.8-2.9); LYMPHOCYTES % 24.5 % (15.0-51.0); MEAN CORPUSCULAR HEMOGLOBIN 33.1 pg (29.0-33.0); MEAN CORPUSCULAR HGB CONC 33.2 g/dl (32.0-37.0); MEAN CORPUSCULAR VOLUME 99.6 fl (82.0-101.0); MEAN PLATELET VOLUME 9.9 fl (7.4-10.4); MONOCYTE # 0.5 10^3/ul (0.3-0.9); MONOCYTES % 8.2 % (0.0-11.0); NEUTROPHIL # 4.3 10^3/ul (1.6-7.5); PLATELET COUNT 138 10^3/UL (140-415); RED BLOOD COUNT 2.84 10^6/ul (4.20-5.40); RED CELL DISTRIBUTION WIDTH 14.6 % (11.5-14.5)
[2019-01-13 05:41] LABS: ALANINE AMINOTRANSFERASE 9 IU/L (13-69); ALBUMIN 2.5 g/dl (3.3-4.9); ALKALINE PHOSPHATASE 56 IU/L (42-121); ANION GAP 5 (5-13); ASPARTATE AMINO TRANSFERASE 15 IU/L (15-46); BILIRUBIN,INDIRECT 0.2 mg/dl (0-1.1); BILIRUBIN,TOTAL 0.2 mg/dl (0.2-1.3); BLOOD UREA NITROGEN 14 mg/dl (7-20); CALCIUM 8.4 mg/dl (8.4-10.2); CARBON DIOXIDE 22 mmol/L (21-31); CHLORIDE 111 mmol/L (97-110); CREATININE 0.81 mg/dl (0.44-1.00); GLUCOSE 120 mg/dl (70-220); POTASSIUM 4.5 mmol/L (3.5-5.1); SODIUM 138 mmol/L (135-144); TOTAL PROTEIN 5.6 g/dl (6.1-8.1)
[2019-01-13] MEDS: D5W-0.45 NACL + KCL 20 MEQ 1,000 ML IV ×2 (06:04→21:37)
[2019-01-13] MEDS: ONDANSETRON 4 MG INJ IV (14:09)
[2019-01-13 15:24] LABS: ADD UMIC YES; UR ASCORBIC ACID NEGATIVE (NEGATIVE); UR BILIRUBIN (Dip) NEGATIVE (NEGATIVE); UR BLOOD (Dip) 2+ mg/dL (NEGATIVE); UR CLARITY CLEAR (CLEAR); UR COLOR YELLOW (YELLOW); UR GLUCOSE (Dip) NEGATIVE (NEGATIVE); UR KETONES (Dip) NEGATIVE (NEGATIVE); UR LEUKOCYTE ESTERASE (Dip) NEGATIVE Leu/ul (NEGATIVE); UR MUCUS FEW /HPF (NONE SEEN); UR NITRITE (Dip) NEGATIVE (NEGATIVE); UR RBC 9 /HPF (0-5); UR SPECIFIC GRAVITY (Dip) 1.014 (1.003-1.030); UR TOTAL PROTEIN (Dip) NEGATIVE (NEGATIVE); UR UROBILINOGEN (Dip) NEGATIVE (NEGATIVE); UR WBC 2 /HPF (0-5)
[2019-01-13] MEDS: ACETAMINOPHEN 650MG/20.3ML CUP PO (16:44)
[2019-01-13] MEDS: HYDROCODONE/HOMATROPINE 5ML CUP PO (21:36)
[2019-01-14] MEDS: HYDROmorphONE 0.5 MG/0.5 ML SYG IV ×3 (00:02→22:44)
[2019-01-14] MEDS: ONDANSETRON 4 MG INJ IV ×3 (03:03→13:40)
[2019-01-14 06:53] LABS: ADD MAN DIFF? NO; BASOPHILS % 0.3 % (0.0-2.0); EOSINOPHILS % 0.3 % (0.0-7.0); HEMATOCRIT 30.7 % (37.0-47.0); HEMOGLOBIN 10.2 g/dl (12.0-16.0); LYMPHOCYTES # 1.3 10^3/ul (0.8-2.9); LYMPHOCYTES % 20.8 % (15.0-51.0); MEAN CORPUSCULAR HEMOGLOBIN 33.1 pg (29.0-33.0); MEAN CORPUSCULAR HGB CONC 33.2 g/dl (32.0-37.0); MEAN CORPUSCULAR VOLUME 99.7 fl (82.0-101.0); MEAN PLATELET VOLUME 9.7 fl (7.4-10.4); MONOCYTE # 0.6 10^3/ul (0.3-0.9); MONOCYTES % 9.7 % (0.0-11.0); NEUTROPHIL # 4.2 10^3/ul (1.6-7.5); NEUTROPHILS % 68.4 % (39.0-77.0); PLATELET COUNT 164 10^3/UL (140-415); RED BLOOD COUNT 3.08 10^6/ul (4.20-5.40); RED CELL DISTRIBUTION WIDTH 14.7 % (11.5-14.5)
[2019-01-14 06:53] LABS: WHITE BLOOD COUNT 6.1 10^3/ul (4.8-10.8)
[2019-01-14 07:16] LABS: ANION GAP 3 (5-13); BLOOD UREA NITROGEN 16 mg/dl (7-20); CALCIUM 8.9 mg/dl (8.4-10.2); CARBON DIOXIDE 27 mmol/L (21-31); CHLORIDE 107 mmol/L (97-110); CREATININE 0.92 mg/dl (0.44-1.00); GLUCOSE 134 mg/dl (70-220); POTASSIUM 4.5 mmol/L (3.5-5.1); SODIUM 137 mmol/L (135-144)
[2019-01-14] MEDS: D5W-0.45 NACL + KCL 20 MEQ 1,000 ML IV (13:41)
[2019-01-15] MEDS: ONDANSETRON 4 MG INJ IV ×2 (03:20→20:52)
[2019-01-15] MEDS: HYDROmorphONE 0.5 MG/0.5 ML SYG IV ×2 (04:43→14:46)
[2019-01-15 06:48] LABS: ADD MAN DIFF? NO
[2019-01-15 06:53] LABS: BASOPHILS % 0.4 % (0.0-2.0); EOSINOPHILS % 0.2 % (0.0-7.0); HEMATOCRIT 30.1 % (37.0-47.0); HEMOGLOBIN 9.9 g/dl (12.0-16.0); LYMPHOCYTES # 1.3 10^3/ul (0.8-2.9); LYMPHOCYTES % 24.8 % (15.0-51.0); MEAN CORPUSCULAR HEMOGLOBIN 32.9 pg (29.0-33.0); MEAN CORPUSCULAR HGB CONC 32.9 g/dl (32.0-37.0); MEAN PLATELET VOLUME 9.6 fl (7.4-10.4); MONOCYTE # 0.6 10^3/ul (0.3-0.9); NEUTROPHIL # 3.3 10^3/ul (1.6-7.5); PLATELET COUNT 186 10^3/UL (140-415); RED BLOOD COUNT 3.01 10^6/ul (4.20-5.40); RED CELL DISTRIBUTION WIDTH 14.2 % (11.5-14.5)
[2019-01-15 06:53] LABS: WHITE BLOOD COUNT 5.3 10^3/ul (4.8-10.8)
[2019-01-15 07:35] LABS: ALANINE AMINOTRANSFERASE 40 IU/L (13-69); ALBUMIN 2.7 g/dl (3.3-4.9); ALBUMIN/GLOBULIN RATIO 0.87; ALKALINE PHOSPHATASE 192 IU/L (42-121); AMYLASE 34 U/L (11-123); ANION GAP 6 (5-13); ASPARTATE AMINO TRANSFERASE 38 IU/L (15-46); BILIRUBIN,INDIRECT 0.3 mg/dl (0-1.1); BILIRUBIN,TOTAL 0.3 mg/dl (0.2-1.3); BLOOD UREA NITROGEN 24 mg/dl (7-20); CALCIUM 8.5 mg/dl (8.4-10.2); CARBON DIOXIDE 39 mmol/L (21-31); CHLORIDE 96 mmol/L (97-110); CREATININE 1.06 mg/dl (0.44-1.00); GLUCOSE 126 mg/dl (70-220); LIPASE 23 U/L (23-300); POTASSIUM 3.8 mmol/L (3.5-5.1); SODIUM 141 mmol/L (135-144); TOTAL PROTEIN 5.8 g/dl (6.1-8.1)
[2019-01-15] MEDS: D5-NS + KCL 20 MEQ 1,000 ML IV (14:46)
[2019-01-16] MEDS: HYDROmorphONE 0.5 MG/0.5 ML SYG IV (02:38)
[2019-01-16] MEDS: D5-NS + KCL 20 MEQ 1,000 ML IV (04:02)
[2019-01-16 06:48] LABS: ADD MAN DIFF? NO
[2019-01-16 06:54] LABS: BASOPHILS % 0.4 % (0.0-2.0); EOSINOPHILS # 0.1 10^3/ul (0.0-0.5); EOSINOPHILS % 0.9 % (0.0-7.0); HEMATOCRIT 28.4 % (37.0-47.0); LYMPHOCYTES # 1.4 10^3/ul (0.8-2.9); LYMPHOCYTES % 24.7 % (15.0-51.0); MEAN CORPUSCULAR HEMOGLOBIN 32.5 pg (29.0-33.0); MEAN CORPUSCULAR HGB CONC 31.7 g/dl (32.0-37.0); MEAN CORPUSCULAR VOLUME 102.5 fl (82.0-101.0); MEAN PLATELET VOLUME 9.3 fl (7.4-10.4); MONOCYTE # 0.6 10^3/ul (0.3-0.9); MONOCYTES % 11.5 % (0.0-11.0); NEUTROPHIL # 3.4 10^3/ul (1.6-7.5); NEUTROPHILS % 62.1 % (39.0-77.0); PLATELET COUNT 211 10^3/UL (140-415); RED BLOOD COUNT 2.77 10^6/ul (4.20-5.40); RED CELL DISTRIBUTION WIDTH 14.3 % (11.5-14.5)
[2019-01-16 06:54] LABS: WHITE BLOOD COUNT 5.5 10^3/ul (4.8-10.8)
[2019-01-16 07:22] LABS: ALANINE AMINOTRANSFERASE 24 IU/L (13-69); ALBUMIN 2.4 g/dl (3.3-4.9); ALBUMIN/GLOBULIN RATIO 0.88; ALKALINE PHOSPHATASE 127 IU/L (42-121); ANION GAP 4 (5-13); ASPARTATE AMINO TRANSFERASE 21 IU/L (15-46); BILIRUBIN,INDIRECT 0.3 mg/dl (0-1.1); BILIRUBIN,TOTAL 0.3 mg/dl (0.2-1.3); BLOOD UREA NITROGEN 26 mg/dl (7-20); CARBON DIOXIDE 38 mmol/L (21-31); CHLORIDE 103 mmol/L (97-110); CREATININE 0.94 mg/dl (0.44-1.00); GLUCOSE 117 mg/dl (70-220); POTASSIUM 3.5 mmol/L (3.5-5.1); SODIUM 145 mmol/L (135-144); TOTAL PROTEIN 5.1 g/dl (6.1-8.1)
[2019-01-16] MEDS: IOHEXOL 300MG/ML 150 ML BTL (15:35)
[2019-01-16] MEDS: D5W-0.45 NACL + KCL 30 MEQ 1,000 ML IV (17:56)
[2019-01-16] MEDS: ENOXAPARIN 40 MG/0.4 ML SYG SC (18:25)
[2019-01-16] MEDS: ONDANSETRON 4 MG INJ IV (21:39)
[2019-01-17] MEDS: HYDROmorphONE 0.5 MG/0.5 ML SYG IV ×5 (01:45→22:19)
[2019-01-17] MEDS: D5W-0.45 NACL + KCL 30 MEQ 1,000 ML IV ×2 (02:20→09:25)
[2019-01-17 06:41] LABS: ADD MAN DIFF? NO
[2019-01-17 06:50] LABS: BASOPHILS % 0.4 % (0.0-2.0); EOSINOPHILS % 0.5 % (0.0-7.0); HEMATOCRIT 29.8 % (37.0-47.0); HEMOGLOBIN 9.4 g/dl (12.0-16.0); LYMPHOCYTES % 12.6 % (15.0-51.0); MEAN CORPUSCULAR HEMOGLOBIN 33.1 pg (29.0-33.0); MEAN CORPUSCULAR HGB CONC 31.5 g/dl (32.0-37.0); MEAN CORPUSCULAR VOLUME 104.9 fl (82.0-101.0); MEAN PLATELET VOLUME 9.5 fl (7.4-10.4); MONOCYTE # 0.8 10^3/ul (0.3-0.9); MONOCYTES % 10.1 % (0.0-11.0); NEUTROPHIL # 5.8 10^3/ul (1.6-7.5); NEUTROPHILS % 75.6 % (39.0-77.0); PLATELET COUNT 240 10^3/UL (140-415); RED BLOOD COUNT 2.84 10^6/ul (4.20-5.40); RED CELL DISTRIBUTION WIDTH 14.4 % (11.5-14.5)
[2019-01-17 06:50] LABS: WHITE BLOOD COUNT 7.6 10^3/ul (4.8-10.8)
[2019-01-17 07:32] LABS: ALANINE AMINOTRANSFERASE 13 IU/L (13-69); ALBUMIN 2.4 g/dl (3.3-4.9); ALBUMIN/GLOBULIN RATIO 0.82; ALKALINE PHOSPHATASE 110 IU/L (42-121); ANION GAP 8 (5-13); ASPARTATE AMINO TRANSFERASE 16 IU/L (15-46); BILIRUBIN,INDIRECT 0.3 mg/dl (0-1.1); BILIRUBIN,TOTAL 0.3 mg/dl (0.2-1.3); BLOOD UREA NITROGEN 27 mg/dl (7-20); CARBON DIOXIDE 33 mmol/L (21-31); CHLORIDE 108 mmol/L (97-110); CREATININE 0.96 mg/dl (0.44-1.00); GLUCOSE 142 mg/dl (70-220); SODIUM 149 mmol/L (135-144); TOTAL PROTEIN 5.3 g/dl (6.1-8.1)
[2019-01-17] MEDS: ENOXAPARIN 40 MG/0.4 ML SYG SC (09:37)
[2019-01-17] MEDS ORDERED: *CONTINUE SAME TPN IV (12:00)
[2019-01-17] MEDS ORDERED: ACCU-CHEK XX (17:00)
[2019-01-18] MEDS: ONDANSETRON 4 MG INJ IV ×3 (00:56→19:51)
[2019-01-18] MEDS: HYDROmorphONE 0.5 MG/0.5 ML SYG IV ×7 (01:00→22:57)
[2019-01-18 07:46] LABS: ADD MAN DIFF? NO
[2019-01-18 07:51] LABS: BASOPHIL # 0.1 10^3/ul (0.0-0.1); BASOPHILS % 0.7 % (0.0-2.0); EOSINOPHILS # 0.1 10^3/ul (0.0-0.5); EOSINOPHILS % 1.8 % (0.0-7.0); HEMOGLOBIN 9.7 g/dl (12.0-16.0); LYMPHOCYTES # 1.1 10^3/ul (0.8-2.9); LYMPHOCYTES % 13.8 % (15.0-51.0); MEAN CORPUSCULAR HEMOGLOBIN 32.9 pg (29.0-33.0); MEAN CORPUSCULAR HGB CONC 31.3 g/dl (32.0-37.0); MEAN CORPUSCULAR VOLUME 105.1 fl (82.0-101.0); MEAN PLATELET VOLUME 9.3 fl (7.4-10.4); MONOCYTE # 0.8 10^3/ul (0.3-0.9); MONOCYTES % 10.2 % (0.0-11.0); NEUTROPHIL # 5.5 10^3/ul (1.6-7.5); NEUTROPHILS % 72.5 % (39.0-77.0); PLATELET COUNT 339 10^3/UL (140-415); RED BLOOD COUNT 2.95 10^6/ul (4.20-5.40); RED CELL DISTRIBUTION WIDTH 14.1 % (11.5-14.5)
[2019-01-18 07:51] LABS: WHITE BLOOD COUNT 7.6 10^3/ul (4.8-10.8)
[2019-01-18 08:11] LABS: MAGNESIUM 1.4 mg/dl (1.7-2.5)
[2019-01-18 08:11] LABS: PHOSPHORUS 4.8 mg/dl (2.5-4.9)
[2019-01-18 08:14] LABS: ALANINE AMINOTRANSFERASE 19 IU/L (13-69); ALKALINE PHOSPHATASE 124 IU/L (42-121); ANION GAP 7 (5-13); ASPARTATE AMINO TRANSFERASE 19 IU/L (15-46); BILIRUBIN,TOTAL 0.3 mg/dl (0.2-1.3); BLOOD UREA NITROGEN 29 mg/dl (7-20); CALCIUM 8.4 mg/dl (8.4-10.2); CARBON DIOXIDE 38 mmol/L (21-31); CHLORIDE 102 mmol/L (97-110); CREATININE 1.14 mg/dl (0.44-1.00); GLUCOSE 131 mg/dl (70-220); POTASSIUM 3.7 mmol/L (3.5-5.1); SODIUM 147 mmol/L (135-144)
[2019-01-18 08:15] LABS: ALBUMIN 2.7 g/dl (3.3-4.9); BILIRUBIN,INDIRECT 0.3 mg/dl (0-1.1); TOTAL PROTEIN 5.7 g/dl (6.1-8.1)
[2019-01-18] MEDS: HYDROCODONE/HOMATROPINE 5ML CUP PO ×2 (09:39→22:14)
[2019-01-18] MEDS: ENOXAPARIN 40 MG/0.4 ML SYG SC (09:49)
[2019-01-18] MEDS: MAGNESIUM SULFATE 2 GM/50 ML 50 ML IVPB (14:09)
[2019-01-18] MEDS ORDERED: ACCU-CHEK XX (17:00)
[2019-01-19] MEDS: ONDANSETRON 4 MG INJ IV ×3 (01:31→08:23)
[2019-01-19] MEDS: HYDROCODONE/HOMATROPINE 5ML CUP PO (03:47)
[2019-01-19 06:11] LABS: ADD MAN DIFF? NO
[2019-01-19 06:17] LABS: WHITE BLOOD COUNT 5.5 10^3/ul (4.8-10.8)
[2019-01-19 06:17] LABS: BASOPHILS % 0.5 % (0.0-2.0); EOSINOPHILS % 0.7 % (0.0-7.0); HEMATOCRIT 30.7 % (37.0-47.0); HEMOGLOBIN 9.7 g/dl (12.0-16.0); LYMPHOCYTES # 1.3 10^3/ul (0.8-2.9); LYMPHOCYTES % 22.7 % (15.0-51.0); MEAN CORPUSCULAR HEMOGLOBIN 32.7 pg (29.0-33.0); MEAN CORPUSCULAR HGB CONC 31.6 g/dl (32.0-37.0); MEAN CORPUSCULAR VOLUME 103.4 fl (82.0-101.0); MEAN PLATELET VOLUME 9.5 fl (7.4-10.4); MONOCYTE # 0.7 10^3/ul (0.3-0.9); NEUTROPHIL # 3.5 10^3/ul (1.6-7.5); NEUTROPHILS % 63.4 % (39.0-77.0); PLATELET COUNT 372 10^3/UL (140-415); RED BLOOD COUNT 2.97 10^6/ul (4.20-5.40); RED CELL DISTRIBUTION WIDTH 13.6 % (11.5-14.5)
[2019-01-19 06:42] LABS: ANION GAP 5 (5-13); BLOOD UREA NITROGEN 31 mg/dl (7-20); CALCIUM 8.3 mg/dl (8.4-10.2); CARBON DIOXIDE 37 mmol/L (21-31); CHLORIDE 98 mmol/L (97-110); CREATININE 1.09 mg/dl (0.44-1.00); GLUCOSE 137 mg/dl (70-220); MAGNESIUM 1.9 mg/dl (1.7-2.5); POTASSIUM 3.4 mmol/L (3.5-5.1); SODIUM 140 mmol/L (135-144)
[2019-01-19] MEDS: ENOXAPARIN 40 MG/0.4 ML SYG SC (08:30)
[2019-01-19] MEDS: HYDROmorphONE 0.5 MG/0.5 ML SYG IV ×3 (08:36→20:32)
[2019-01-19] MEDS: POTASSIUM CHLORIDE 30 MEQ in DEXTROSE 5% 1,000 ML IV ×2 (09:44→23:19)
[2019-01-19] MEDS ORDERED: ACETAMINOPHEN 650MG/20.3ML CUP PO (20:00)
[2019-01-19] MEDS: POTASSIUM CHLORIDE 100 ML IVPB (20:36)
[2019-01-19] MEDS: METOCLOPRAMIDE 10 MG INJ IV (22:29)
[2019-01-19] MEDS: ZOLPIDEM 5 MG TAB PO (22:49)
[2019-01-19] MEDS: MAGNESIUM SULFATE 1 GM/D5W 100 ML IVPB (23:30)
[2019-01-20] MEDS: METOCLOPRAMIDE 10 MG INJ IV ×4 (02:11→19:49)
[2019-01-20] MEDS: ONDANSETRON 4 MG INJ IV ×3 (03:35→23:29)
[2019-01-20] MEDS: HYDROCODONE/HOMATROPINE 5ML CUP PO ×2 (05:50→05:51)
[2019-01-20 06:11] LABS: ADD MAN DIFF? NO
[2019-01-20 06:22] LABS: WHITE BLOOD COUNT 9.4 10^3/ul (4.8-10.8)
[2019-01-20 06:22] LABS: BASOPHIL # 0.1 10^3/ul (0.0-0.1); BASOPHILS % 0.7 % (0.0-2.0); EOSINOPHILS % 0.1 % (0.0-7.0); HEMATOCRIT 34.5 % (37.0-47.0); LYMPHOCYTES # 1.6 10^3/ul (0.8-2.9); LYMPHOCYTES % 17.2 % (15.0-51.0); MEAN CORPUSCULAR HEMOGLOBIN 32.2 pg (29.0-33.0); MEAN CORPUSCULAR HGB CONC 31.9 g/dl (32.0-37.0); MEAN CORPUSCULAR VOLUME 100.9 fl (82.0-101.0); MEAN PLATELET VOLUME 9.7 fl (7.4-10.4); MONOCYTE # 0.9 10^3/ul (0.3-0.9); MONOCYTES % 9.8 % (0.0-11.0); NEUTROPHIL # 6.7 10^3/ul (1.6-7.5); NEUTROPHILS % 71.4 % (39.0-77.0); PLATELET COUNT 510 10^3/UL (140-415); RED BLOOD COUNT 3.42 10^6/ul (4.20-5.40); RED CELL DISTRIBUTION WIDTH 13.2 % (11.5-14.5)
[2019-01-20 06:45] LABS: ANION GAP 6 (5-13); BLOOD UREA NITROGEN 33 mg/dl (7-20); CALCIUM 8.1 mg/dl (8.4-10.2); CARBON DIOXIDE 38 mmol/L (21-31); CHLORIDE 93 mmol/L (97-110); CREATININE 1.22 mg/dl (0.44-1.00); GLUCOSE 152 mg/dl (70-220); MAGNESIUM 2.5 mg/dl (1.7-2.5); SODIUM 137 mmol/L (135-144)
[2019-01-20 07:30] LABS: POTASSIUM 3.3 mmol/L (3.5-5.1)
[2019-01-20] MEDS: ENOXAPARIN 40 MG/0.4 ML SYG SC (08:20)
[2019-01-20] MEDS: HYDROmorphONE 0.5 MG/0.5 ML SYG IV (10:18)
[2019-01-20] MEDS: POTASSIUM CHLORIDE 30 MEQ in DEXTROSE 5% 1,000 ML IV (14:32)
[2019-01-20] MEDS: POTASSIUM CHLORIDE 100 ML IVPB (16:12)
[2019-01-20] MEDS: D5W-0.45 NACL + KCL 20 MEQ 1,000 ML IV (16:18)
[2019-01-21] MEDS: METOCLOPRAMIDE 10 MG INJ IV ×4 (03:36→21:17)
[2019-01-21] MEDS: HYDROmorphONE 0.5 MG/0.5 ML SYG IV ×3 (04:05→15:08)
[2019-01-21] MEDS: D5W-0.45 NACL + KCL 20 MEQ 1,000 ML IV (05:06)
[2019-01-21 06:26] LABS: WHITE BLOOD COUNT 15.8 10^3/ul (4.8-10.8)
[2019-01-21 06:26] LABS: HEMATOCRIT 35.4 % (37.0-47.0); HEMOGLOBIN 11.4 g/dl (12.0-16.0); MEAN CORPUSCULAR HEMOGLOBIN 31.8 pg (29.0-33.0); MEAN CORPUSCULAR HGB CONC 32.2 g/dl (32.0-37.0); MEAN CORPUSCULAR VOLUME 98.9 fl (82.0-101.0); MEAN PLATELET VOLUME 9.6 fl (7.4-10.4); PLATELET COUNT 523 10^3/UL (140-415); RED BLOOD COUNT 3.58 10^6/ul (4.20-5.40); RED CELL DISTRIBUTION WIDTH 13.2 % (11.5-14.5)
[2019-01-21 06:33] LABS: ADD MAN DIFF? YES; POSITIVE DIFF @See below
[2019-01-21 06:40] LABS: ANION GAP 4 (5-13); BLOOD UREA NITROGEN 42 mg/dl (7-20); CALCIUM 7.9 mg/dl (8.4-10.2); CARBON DIOXIDE 39 mmol/L (21-31); CHLORIDE 93 mmol/L (97-110); GLUCOSE 178 mg/dl (70-220); MAGNESIUM 2.2 mg/dl (1.7-2.5); POTASSIUM 3.8 mmol/L (3.5-5.1); SODIUM 136 mmol/L (135-144)
[2019-01-21] MEDS: ENOXAPARIN 40 MG/0.4 ML SYG SC (08:45)
[2019-01-21 09:36] LABS: ANISOCYTOSIS 1+ (0-0); BAND NEUTROPHILS #M 5.3 10^3/ul (0.0-0.6); BAND NEUTROPHILS % (M) 34 % (0-4); GIANT THROMBO% (M) 1 % (0-0); LYMPHOCYTES #M 1.2 10^3/ul (0.8-2.9); LYMPHOCYTES % (M) 8 % (15-51); MONOCYTE #M 1.1 10^3/ul (0.3-0.9); MONOCYTES % (M) 7 % (0-11); PLATELET ESTIMATE INCREASED; REACTIVE LYMPHOCYTES #M 0.3 10^3/ul (0.0-0.0); REACTIVE LYMPHOCYTES% (M) 2 % (0-0); SEG NEUT #M 8.6 10^3/ul (1.6-7.5); SEGMENTED NEUTROPHILS (M) % 49 % (39-77); SMUDGE%M 10 % (0-0)
[2019-01-21] MEDS ORDERED: VANCOMYCIN IV PER PHARMACY XX (14:00)
[2019-01-21] MEDS: LEVALBUTEROL (NEB) 0.63 MG/3 ML AMP HHN ×2 (14:49→20:59)
[2019-01-21] MEDS: POTASSIUM CHLORIDE 100 ML IVPB (14:54)
[2019-01-21] MEDS: PIPER-TAZO 3.375 GM IV (PMX) 100 ML IVPB ×2 (14:54→21:27)
[2019-01-21] MEDS: FUROSEMIDE 20 MG INJ IV (14:54)
[2019-01-21] MEDS: VANCOMYCIN HCL 1.5 GM in SOD CHLORIDE 0.9% 250 ML IVPB (18:02)
[2019-01-22] MEDS: LEVALBUTEROL (NEB) 0.63 MG/3 ML AMP HHN ×4 (02:28→20:21)
[2019-01-22] MEDS: METOCLOPRAMIDE 10 MG INJ IV ×4 (02:39→21:42)
[2019-01-22] MEDS: IOHEXOL 14.3 MG(I)/ML (ADULT) BTL PO (03:28)
[2019-01-22] MEDS: ONDANSETRON 4 MG INJ IV (06:06)
[2019-01-22 06:22] LABS: WHITE BLOOD COUNT 20.9 10^3/ul (4.8-10.8)
[2019-01-22 06:22] LABS: HEMATOCRIT 30.2 % (37.0-47.0); HEMOGLOBIN 9.9 g/dl (12.0-16.0); MEAN CORPUSCULAR HEMOGLOBIN 32.4 pg (29.0-33.0); MEAN CORPUSCULAR HGB CONC 32.8 g/dl (32.0-37.0); MEAN CORPUSCULAR VOLUME 98.7 fl (82.0-101.0); MEAN PLATELET VOLUME 10.3 fl (7.4-10.4); PLATELET COUNT 441 10^3/UL (140-415); RED BLOOD COUNT 3.06 10^6/ul (4.20-5.40); RED CELL DISTRIBUTION WIDTH 13.3 % (11.5-14.5)
[2019-01-22 06:36] LABS: ADD MAN DIFF? YES; POSITIVE DIFF @See below
[2019-01-22 06:40] LABS: ALANINE AMINOTRANSFERASE 10 IU/L (13-69); ALBUMIN 2.3 g/dl (3.3-4.9); ALBUMIN/GLOBULIN RATIO 0.88; ALKALINE PHOSPHATASE 124 IU/L (42-121); ANION GAP 10 (5-13); ASPARTATE AMINO TRANSFERASE 11 IU/L (15-46); BILIRUBIN,INDIRECT 0.4 mg/dl (0-1.1); BILIRUBIN,TOTAL 0.4 mg/dl (0.2-1.3); BLOOD UREA NITROGEN 46 mg/dl (7-20); CALCIUM 8.1 mg/dl (8.4-10.2); CARBON DIOXIDE 31 mmol/L (21-31); CHLORIDE 94 mmol/L (97-110); CREATININE 1.84 mg/dl (0.44-1.00); GLUCOSE 130 mg/dl (70-220); POTASSIUM 3.9 mmol/L (3.5-5.1); SODIUM 135 mmol/L (135-144); TOTAL PROTEIN 4.9 g/dl (6.1-8.1)
[2019-01-22 06:41] LABS: LACTIC ACID 1.1 mmol/L (0.5-2.0)
[2019-01-22] MEDS: PIPER-TAZO 3.375 GM IV (PMX) 100 ML IVPB ×3 (06:45→21:42)
[2019-01-22 08:46] LABS: ADD UMIC YES; UR ASCORBIC ACID NEGATIVE (NEGATIVE); UR BACTERIA MODERATE /HPF (NONE SEEN); UR BILIRUBIN (Dip) NEGATIVE (NEGATIVE); UR BLOOD (Dip) 2+ mg/dL (NEGATIVE); UR CLARITY TURBID (CLEAR); UR COLOR YELLOW (YELLOW); UR GLUCOSE (Dip) NEGATIVE (NEGATIVE); UR KETONES (Dip) NEGATIVE (NEGATIVE); UR LEUKOCYTE ESTERASE (Dip) NEGATIVE Leu/ul (NEGATIVE); UR NITRITE (Dip) NEGATIVE (NEGATIVE); UR RBC 85 /HPF (0-5); UR RENAL EPITHELIAL CELL FEW /HPF (NONE SEEN); UR SPECIFIC GRAVITY (Dip) 1.024 (1.003-1.030); UR SQUAMOUS EPITHELIAL CELL FEW /HPF (FEW); UR TOTAL PROTEIN (Dip) NEGATIVE (NEGATIVE); UR URIC ACID CRYSTAL MANY /HPF (NONE SEEN); UR UROBILINOGEN (Dip) NEGATIVE (NEGATIVE); UR WBC 24 /HPF (0-5)
[2019-01-22] MEDS: L ACIDOPHIL/B LACTIS/B LONGUM CAPSULE PO ×2 (09:18→21:42)
[2019-01-22] MEDS: DAKINS 0.0125%(1/40) 473 ML SOLUTION TP (09:21)
[2019-01-22 09:30] LABS: ANISOCYTOSIS 1+ (0-0); BAND NEUTROPHILS #M 8.3 10^3/ul (0.0-0.6); BAND NEUTROPHILS % (M) 40 % (0-4); HYPOCHROMASIA 1+ (0-0); LYMPHOCYTES #M 2.2 10^3/ul (0.8-2.9); LYMPHOCYTES % (M) 11 % (15-51); MONOCYTE #M 0.6 10^3/ul (0.3-0.9); MONOCYTES % (M) 3 % (0-11); PLATELET ESTIMATE NORMAL; SEG NEUT #M 11.3 10^3/ul (1.6-7.5); SEGMENTED NEUTROPHILS (M) % 46 % (39-77); SMUDGE%M 2 % (0-0)
[2019-01-22] MEDS: ENOXAPARIN 40 MG/0.4 ML SYG SC (09:36)
[2019-01-22 10:59] LABS: PROCALCITONIN 0.52 ng/mL (0.00-0.10)
[2019-01-22] MEDS: SOD CHLORIDE 0.9% 1,000 ML IV (13:51)
[2019-01-22 14:56] LABS: SODIUM,URINE RANDOM < 13 mmol/L (30-90)
[2019-01-22 14:56] LABS: IRON 22 ug/dl (35-150)
[2019-01-22 14:59] LABS: CREATININE,URINE RANDOM 93.97 mg/dl (20-320)
[2019-01-22 15:05] LABS: % IRON SATURATION 16 % SAT (22-52); TOTAL IRON BINDING CAPACITY 139 ug/dl (241-421)
[2019-01-22] MEDS ORDERED: VANCOMYCIN 750 MG (PMX) 250 ML IVPB (17:00)
[2019-01-23] MEDS: METOCLOPRAMIDE 10 MG INJ IV ×4 (01:30→21:21)
[2019-01-23] MEDS: LEVALBUTEROL (NEB) 0.63 MG/3 ML AMP HHN ×4 (02:50→20:03)
[2019-01-23] MEDS: SOD CHLORIDE 0.9% 1,000 ML IV ×2 (03:12→18:09)
[2019-01-23] MEDS: PIPER-TAZO 3.375 GM IV (PMX) 100 ML IVPB ×3 (05:31→21:55)
[2019-01-23] MEDS: L ACIDOPHIL/B LACTIS/B LONGUM CAPSULE PO ×2 (08:35→21:21)
[2019-01-23] MEDS: DAKINS 0.0125%(1/40) 473 ML SOLUTION TP (08:36)
[2019-01-23] MEDS: ENOXAPARIN 30 MG/0.3 ML SYG SC (08:42)
[2019-01-23 10:59] LABS: HEMATOCRIT 25.3 % (37.0-47.0); HEMOGLOBIN 8.1 g/dl (12.0-16.0); MEAN CORPUSCULAR HEMOGLOBIN 32.7 pg (29.0-33.0); MEAN PLATELET VOLUME 10.1 fl (7.4-10.4); PLATELET COUNT 384 10^3/UL (140-415); RED BLOOD COUNT 2.48 10^6/ul (4.20-5.40); RED CELL DISTRIBUTION WIDTH 13.4 % (11.5-14.5)
[2019-01-23 10:59] LABS: WHITE BLOOD COUNT 7.4 10^3/ul (4.8-10.8)
[2019-01-23 11:01] LABS: ADD MAN DIFF? YES; POSITIVE DIFF @See below
[2019-01-23 11:20] LABS: ANION GAP 8 (5-13); BLOOD UREA NITROGEN 28 mg/dl (7-20); CALCIUM 7.8 mg/dl (8.4-10.2); CARBON DIOXIDE 28 mmol/L (21-31); CHLORIDE 101 mmol/L (97-110); CREATININE 1.16 mg/dl (0.44-1.00); GLUCOSE 86 mg/dl (70-220); SODIUM 137 mmol/L (135-144)
[2019-01-23 11:23] LABS: PHOSPHORUS 3.4 mg/dl (2.5-4.9)
[2019-01-23 11:59] LABS: POTASSIUM 2.9 mmol/L (3.5-5.1)
[2019-01-23 12:42] LABS: ANISOCYTOSIS 1+ (0-0); BAND NEUTROPHILS #M 1.4 10^3/ul (0.0-0.6); BAND NEUTROPHILS % (M) 20 % (0-4); EOSINOPHILS % (M) 2 % (0-7); GIANT THROMBO% (M) 2 % (0-0); LYMPHOCYTES #M 1.1 10^3/ul (0.8-2.9); LYMPHOCYTES % (M) 15 % (15-51); MONOCYTE #M 0.2 10^3/ul (0.3-0.9); MONOCYTES % (M) 3 % (0-11); PLATELET ESTIMATE NORMAL; POLYCHROMASIA 3+ (0-0); SEG NEUT #M 4.5 10^3/ul (1.6-7.5); SEGMENTED NEUTROPHILS (M) % 60 % (39-77); SMUDGE%M 6 % (0-0)
[2019-01-23] MEDS: SOD FERRIC GLUC COMPLX 125 MG in SOD CHLORIDE 0.9% 100 ML IVPB (13:06)
[2019-01-23] MEDS: POTASSIUM CHLORIDE 100 ML IVPB ×2 (14:05→16:11)
[2019-01-23] MEDS: TPN 1,000 ML IV (17:18)
[2019-01-24] MEDS: METOCLOPRAMIDE 10 MG INJ IV ×4 (01:26→20:11)
[2019-01-24] MEDS: LEVALBUTEROL (NEB) 0.63 MG/3 ML AMP HHN ×4 (02:00→21:18)
[2019-01-24] MEDS: PIPER-TAZO 3.375 GM IV (PMX) 100 ML IVPB ×3 (05:30→20:11)
[2019-01-24 06:52] LABS: ADD MAN DIFF? NO
[2019-01-24 06:59] LABS: WHITE BLOOD COUNT 6.2 10^3/ul (4.8-10.8)
[2019-01-24 06:59] LABS: BASOPHILS % 0.5 % (0.0-2.0); EOSINOPHILS # 0.1 10^3/ul (0.0-0.5); EOSINOPHILS % 1.3 % (0.0-7.0); HEMATOCRIT 23.5 % (37.0-47.0); HEMOGLOBIN 7.8 g/dl (12.0-16.0); LYMPHOCYTES # 1.8 10^3/ul (0.8-2.9); LYMPHOCYTES % 28.5 % (15.0-51.0); MEAN CORPUSCULAR HEMOGLOBIN 33.1 pg (29.0-33.0); MEAN CORPUSCULAR HGB CONC 33.2 g/dl (32.0-37.0); MEAN CORPUSCULAR VOLUME 99.6 fl (82.0-101.0); MEAN PLATELET VOLUME 9.7 fl (7.4-10.4); MONOCYTE # 0.2 10^3/ul (0.3-0.9); MONOCYTES % 3.7 % (0.0-11.0); NEUTROPHIL # 3.8 10^3/ul (1.6-7.5); NEUTROPHILS % 62.1 % (39.0-77.0); PLATELET COUNT 439 10^3/UL (140-415); RED BLOOD COUNT 2.36 10^6/ul (4.20-5.40); RED CELL DISTRIBUTION WIDTH 13.5 % (11.5-14.5)
[2019-01-24 07:22] LABS: TRIGLYCERIDES 141 mg/dl (0-149)
[2019-01-24 07:23] LABS: ALANINE AMINOTRANSFERASE 10 IU/L (13-69); ALBUMIN 2.1 g/dl (3.3-4.9); ALBUMIN/GLOBULIN RATIO 0.77; ALKALINE PHOSPHATASE 80 IU/L (42-121); ANION GAP 5 (5-13); ASPARTATE AMINO TRANSFERASE 12 IU/L (15-46); BILIRUBIN,INDIRECT 0.2 mg/dl (0-1.1); BILIRUBIN,TOTAL 0.2 mg/dl (0.2-1.3); BLOOD UREA NITROGEN 19 mg/dl (7-20); CALCIUM 7.9 mg/dl (8.4-10.2); CARBON DIOXIDE 28 mmol/L (21-31); CHLORIDE 106 mmol/L (97-110); GLUCOSE 129 mg/dl (70-220); PHOSPHORUS 2.5 mg/dl (2.5-4.9); POTASSIUM 3.3 mmol/L (3.5-5.1); SODIUM 139 mmol/L (135-144); TOTAL PROTEIN 4.8 g/dl (6.1-8.1)
[2019-01-24 07:42] LABS: PREALBUMIN 10.3 mg/dl (17.6-36.0)
[2019-01-24] MEDS: L ACIDOPHIL/B LACTIS/B LONGUM CAPSULE PO ×2 (08:04→20:11)
[2019-01-24] MEDS: DAKINS 0.0125%(1/40) 473 ML SOLUTION TP (08:36)
[2019-01-24] MEDS: ENOXAPARIN 30 MG/0.3 ML SYG SC (08:40)
[2019-01-24] MEDS: SOD FERRIC GLUC COMPLX 125 MG in SOD CHLORIDE 0.9% 100 ML IVPB (14:28)
[2019-01-24] MEDS: POTASSIUM CHLORIDE 20 MEQ/SW 100 ML IVPB (16:09)
[2019-01-24] MEDS: TPN 1,000 ML IV (16:26)
[2019-01-24] MEDS: SOD CHLORIDE 0.9% 1,000 ML IV (17:26)
[2019-01-25] MEDS: LEVALBUTEROL (NEB) 0.63 MG/3 ML AMP HHN ×4 (01:25→19:57)
[2019-01-25] MEDS: METOCLOPRAMIDE 10 MG INJ IV ×4 (02:12→22:44)
[2019-01-25] MEDS: PIPER-TAZO 3.375 GM IV (PMX) 100 ML IVPB ×3 (06:33→22:47)
[2019-01-25 08:21] LABS: ADD MAN DIFF? NO
[2019-01-25 08:32] LABS: ABNORMAL IP MESSAGE 1; BASOPHIL # 0.1 10^3/ul (0.0-0.1); BASOPHILS % 0.8 % (0.0-2.0); EOSINOPHILS # 0.2 10^3/ul (0.0-0.5); EOSINOPHILS % 2.3 % (0.0-7.0); LYMPHOCYTES % 31.4 % (15.0-51.0); MEAN PLATELET VOLUME 9.7 fl (7.4-10.4); MONOCYTE # 0.2 10^3/ul (0.3-0.9); MONOCYTES % 3.4 % (0.0-11.0); NEUTROPHIL # 3.6 10^3/ul (1.6-7.5); NEUTROPHILS % 55.7 % (39.0-77.0); PLATELET COUNT 537 10^3/UL (140-415); RED CELL DISTRIBUTION WIDTH 13.6 % (11.5-14.5)
[2019-01-25 08:32] LABS: WHITE BLOOD COUNT 6.4 10^3/ul (4.8-10.8)
[2019-01-25 08:33] LABS: POSITIVE DIFF @See below
[2019-01-25 08:47] LABS: ALANINE AMINOTRANSFERASE 15 IU/L (13-69); ALBUMIN 2.2 g/dl (3.3-4.9); ALBUMIN/GLOBULIN RATIO 0.75; ALKALINE PHOSPHATASE 74 IU/L (42-121); ANION GAP 4 (5-13); ASPARTATE AMINO TRANSFERASE 12 IU/L (15-46); BILIRUBIN,INDIRECT 0.2 mg/dl (0-1.1); BILIRUBIN,TOTAL 0.2 mg/dl (0.2-1.3); BLOOD UREA NITROGEN 17 mg/dl (7-20); CALCIUM 7.8 mg/dl (8.4-10.2); CARBON DIOXIDE 24 mmol/L (21-31); CHLORIDE 111 mmol/L (97-110); CREATININE 0.88 mg/dl (0.44-1.00); GLUCOSE 113 mg/dl (70-220); PHOSPHORUS 2.5 mg/dl (2.5-4.9); POTASSIUM 3.6 mmol/L (3.5-5.1); SODIUM 139 mmol/L (135-144); TOTAL PROTEIN 5.1 g/dl (6.1-8.1)
[2019-01-25] MEDS: ENOXAPARIN 30 MG/0.3 ML SYG SC (09:00)
[2019-01-25] MEDS: L ACIDOPHIL/B LACTIS/B LONGUM CAPSULE PO ×2 (09:00→21:00)
[2019-01-25] MEDS: DOXYCYCLINE 100 MG TAB PO ×2 (09:00→22:45)
[2019-01-25] MEDS: DAKINS 0.0125%(1/40) 473 ML SOLUTION TP (09:04)
[2019-01-25] MEDS: SOD CHLORIDE 0.9% 1,000 ML IV (09:41)
[2019-01-25 09:53] LABS: PROCALCITONIN 0.11 ng/mL (0.00-0.10)
[2019-01-25] MEDS: POTASSIUM CHLORIDE 20 MEQ/SW 100 ML IVPB (12:25)
[2019-01-25] MEDS: SOD FERRIC GLUC COMPLX 125 MG in SOD CHLORIDE 0.9% 100 ML IVPB (15:11)
[2019-01-25] MEDS ORDERED: DIVALPROEX (EC) 500 MG TAB PO (16:00)
[2019-01-25] MEDS: TPN 1,000 ML IV (16:51)
[2019-01-25] MEDS: FAT EMULSION 20% 250 ML IV (16:52)
[2019-01-25] MEDS: VALPROIC ACID LIQUID CUP 250 MG/5 ML CUP PO ×2 (16:52→22:44)
[2019-01-25] MEDS: HYDROCODONE/HOMATROPINE 5ML CUP PO (18:54)
[2019-01-26] MEDS: LEVALBUTEROL (NEB) 0.63 MG/3 ML AMP HHN ×4 (02:10→19:51)
[2019-01-26] MEDS: PIPER-TAZO 3.375 GM IV (PMX) 100 ML IVPB ×3 (06:12→23:01)
[2019-01-26] MEDS: METOCLOPRAMIDE 10 MG INJ IV ×4 (06:12→23:00)
[2019-01-26 09:09] LABS: ANION GAP 4 (5-13); BLOOD UREA NITROGEN 15 mg/dl (7-20); CALCIUM 7.8 mg/dl (8.4-10.2); CARBON DIOXIDE 23 mmol/L (21-31); CHLORIDE 111 mmol/L (97-110); CREATININE 0.77 mg/dl (0.44-1.00); GLUCOSE 117 mg/dl (70-220); MAGNESIUM 1.9 mg/dl (1.7-2.5); PHOSPHORUS 2.7 mg/dl (2.5-4.9); POTASSIUM 3.9 mmol/L (3.5-5.1); SODIUM 138 mmol/L (135-144)
[2019-01-26] MEDS: DOXYCYCLINE 100 MG TAB PO ×2 (09:16→23:01)
[2019-01-26] MEDS: VALPROIC ACID LIQUID CUP 250 MG/5 ML CUP PO ×3 (09:17→23:00)
[2019-01-26] MEDS: L ACIDOPHIL/B LACTIS/B LONGUM CAPSULE PO ×2 (09:17→23:27)
[2019-01-26] MEDS: ENOXAPARIN 30 MG/0.3 ML SYG SC (09:32)
[2019-01-26] MEDS: SOD FERRIC GLUC COMPLX 125 MG in SOD CHLORIDE 0.9% 100 ML IVPB (12:48)
[2019-01-26] MEDS: DAKINS 0.0125%(1/40) 473 ML SOLUTION TP (12:51)
[2019-01-26] MEDS: FAT EMULSION 20% 250 ML IV (13:30)
[2019-01-26] MEDS: HYDROCODONE/HOMATROPINE 5ML CUP PO (13:53)
[2019-01-26] MEDS: TPN 1,000 ML IV (17:55)
[2019-01-27] MEDS: METOCLOPRAMIDE 10 MG INJ IV ×4 (02:00→21:39)
[2019-01-27] MEDS: LEVALBUTEROL (NEB) 0.63 MG/3 ML AMP HHN ×4 (02:17→21:05)
[2019-01-27] MEDS: PIPER-TAZO 3.375 GM IV (PMX) 100 ML IVPB ×3 (05:53→21:39)
[2019-01-27 06:40] LABS: ABNORMAL IP MESSAGE 1; HEMATOCRIT 24.7 % (37.0-47.0); HEMOGLOBIN 8.3 g/dl (12.0-16.0); MEAN CORPUSCULAR HEMOGLOBIN 33.7 pg (29.0-33.0); MEAN CORPUSCULAR HGB CONC 33.6 g/dl (32.0-37.0); MEAN CORPUSCULAR VOLUME 100.4 fl (82.0-101.0); MEAN PLATELET VOLUME 9.3 fl (7.4-10.4); PLATELET COUNT 535 10^3/UL (140-415); RED BLOOD COUNT 2.46 10^6/ul (4.20-5.40)
[2019-01-27 06:40] LABS: WHITE BLOOD COUNT 8.1 10^3/ul (4.8-10.8)
[2019-01-27 06:44] LABS: ADD MAN DIFF? YES; POSITIVE DIFF @See below
[2019-01-27 07:10] LABS: ANION GAP 7 (5-13); BLOOD UREA NITROGEN 15 mg/dl (7-20); CALCIUM 8.3 mg/dl (8.4-10.2); CARBON DIOXIDE 21 mmol/L (21-31); CHLORIDE 112 mmol/L (97-110); CREATININE 0.78 mg/dl (0.44-1.00); GLUCOSE 118 mg/dl (70-220); MAGNESIUM 1.7 mg/dl (1.7-2.5); PHOSPHORUS 2.9 mg/dl (2.5-4.9); POTASSIUM 3.9 mmol/L (3.5-5.1); SODIUM 140 mmol/L (135-144)
[2019-01-27] MEDS: VALPROIC ACID LIQUID CUP 250 MG/5 ML CUP PO ×3 (08:19→21:38)
[2019-01-27] MEDS: L ACIDOPHIL/B LACTIS/B LONGUM CAPSULE PO ×2 (08:19→21:38)
[2019-01-27] MEDS: DOXYCYCLINE 100 MG TAB PO ×2 (08:19→21:38)
[2019-01-27 08:21] LABS: ANISOCYTOSIS 1+ (0-0); BAND NEUTROPHILS #M 0.6 10^3/ul (0.0-0.6); BAND NEUTROPHILS % (M) 8 % (0-4); BASOPHIL #M 0.1 10^3/ul (0.0-0.0); BASOPHILS % (M) 2 % (0-2); EOSINOPHILS % (M) 1 % (0-7); LYMPHOCYTES #M 1.4 10^3/ul (0.8-2.9); LYMPHOCYTES % (M) 18 % (15-51); METAMYELOCYTES %M 1 % (0-0); MONOCYTE #M 0.4 10^3/ul (0.3-0.9); MONOCYTES % (M) 5 % (0-11); MYELOCYTES % (M) 1 % (0-0); PLATELET ESTIMATE INCREASED; POLYCHROMASIA 1+ (0-0); SEG NEUT #M 5.2 10^3/ul (1.6-7.5); SEGMENTED NEUTROPHILS (M) % 64 % (39-77); SMUDGE%M 7 % (0-0)
[2019-01-27] MEDS: ENOXAPARIN 30 MG/0.3 ML SYG SC (08:26)
[2019-01-27] MEDS: DAKINS 0.0125%(1/40) 473 ML SOLUTION TP (08:32)
[2019-01-27] MEDS: SOD FERRIC GLUC COMPLX 125 MG in SOD CHLORIDE 0.9% 100 ML IVPB (12:44)
[2019-01-27] MEDS: TPN 1,000 ML IV (12:45)
[2019-01-27] MEDS: FAT EMULSION 20% 250 ML IV (13:55)
[2019-01-27] MEDS: MAGNESIUM SULFATE 2 GM/50 ML 50 ML IVPB (18:35)
[2019-01-28] MEDS: HYDROCODONE/HOMATROPINE 5ML CUP PO (00:14)
[2019-01-28] MEDS: LEVALBUTEROL (NEB) 0.63 MG/3 ML AMP HHN ×4 (02:07→19:19)
[2019-01-28] MEDS: METOCLOPRAMIDE 10 MG INJ IV ×4 (03:01→22:30)
[2019-01-28 06:48] LABS: ABNORMAL IP MESSAGE 1; HEMATOCRIT 24.4 % (37.0-47.0); HEMOGLOBIN 7.8 g/dl (12.0-16.0); MEAN CORPUSCULAR HEMOGLOBIN 32.4 pg (29.0-33.0); MEAN CORPUSCULAR VOLUME 101.2 fl (82.0-101.0); MEAN PLATELET VOLUME 9.3 fl (7.4-10.4); PLATELET COUNT 517 10^3/UL (140-415); RED BLOOD COUNT 2.41 10^6/ul (4.20-5.40); RED CELL DISTRIBUTION WIDTH 14.3 % (11.5-14.5)
[2019-01-28 07:06] LABS: ADD MAN DIFF? YES; POSITIVE DIFF @See below
[2019-01-28 07:28] LABS: ANION GAP 5 (5-13); BLOOD UREA NITROGEN 18 mg/dl (7-20); CALCIUM 8.1 mg/dl (8.4-10.2); CARBON DIOXIDE 20 mmol/L (21-31); CHLORIDE 113 mmol/L (97-110); CREATININE 0.67 mg/dl (0.44-1.00); GLUCOSE 101 mg/dl (70-220); MAGNESIUM 2.2 mg/dl (1.7-2.5); POTASSIUM 4.4 mmol/L (3.5-5.1); SODIUM 138 mmol/L (135-144)
[2019-01-28] MEDS: DAKINS 0.0125%(1/40) 473 ML SOLUTION TP (09:03)
[2019-01-28] MEDS: DOXYCYCLINE 100 MG TAB PO ×2 (09:03→22:30)
[2019-01-28] MEDS: L ACIDOPHIL/B LACTIS/B LONGUM CAPSULE PO ×2 (09:03→22:30)
[2019-01-28] MEDS: VALPROIC ACID LIQUID CUP 250 MG/5 ML CUP PO ×3 (09:03→22:30)
[2019-01-28] MEDS: ENOXAPARIN 30 MG/0.3 ML SYG SC (09:30)
[2019-01-28] MEDS: TPN 1,000 ML IV (09:31)
[2019-01-28 09:46] LABS: ANISOCYTOSIS 1+ (0-0); BAND NEUTROPHILS #M 0.2 10^3/ul (0.0-0.6); BAND NEUTROPHILS % (M) 2 % (0-4); BASOPHIL #M 0.3 10^3/ul (0.0-0.0); BASOPHILS % (M) 3 % (0-2); EOSINOPHILS % (M) 1 % (0-7); GIANT THROMBO% (M) 3 % (0-0); LYMPHOCYTES #M 2.8 10^3/ul (0.8-2.9); LYMPHOCYTES % (M) 28 % (15-51); MONOCYTE #M 0.5 10^3/ul (0.3-0.9); MONOCYTES % (M) 5 % (0-11); PLATELET ESTIMATE INCREASED; POLYCHROMASIA 1+ (0-0); SEG NEUT #M 6.1 10^3/ul (1.6-7.5); SEGMENTED NEUTROPHILS (M) % 61 % (39-77); SMUDGE%M 5 % (0-0)
[2019-01-28] MEDS: FAT EMULSION 20% 250 ML IV (13:25)
[2019-01-29] MEDS: LEVALBUTEROL (NEB) 0.63 MG/3 ML AMP HHN ×4 (01:32→19:23)
[2019-01-29] MEDS: METOCLOPRAMIDE 10 MG INJ IV ×4 (02:27→21:57)
[2019-01-29] MEDS: TPN 1,000 ML IV (06:53)
[2019-01-29 07:22] LABS: ANION GAP 5 (5-13); BLOOD UREA NITROGEN 19 mg/dl (7-20); CALCIUM 8.1 mg/dl (8.4-10.2); CARBON DIOXIDE 23 mmol/L (21-31); CHLORIDE 110 mmol/L (97-110); CREATININE 0.67 mg/dl (0.44-1.00); GLUCOSE 95 mg/dl (70-220); PHOSPHORUS 3.4 mg/dl (2.5-4.9); POTASSIUM 4.2 mmol/L (3.5-5.1); SODIUM 138 mmol/L (135-144)
[2019-01-29] MEDS: VALPROIC ACID LIQUID CUP 250 MG/5 ML CUP PO ×3 (08:17→22:02)
[2019-01-29] MEDS: DOXYCYCLINE 100 MG TAB PO ×2 (08:17→21:56)
[2019-01-29] MEDS: L ACIDOPHIL/B LACTIS/B LONGUM CAPSULE PO ×2 (08:17→21:00)
[2019-01-29] MEDS: DAKINS 0.0125%(1/40) 473 ML SOLUTION TP (08:20)
[2019-01-29] MEDS: ENOXAPARIN 30 MG/0.3 ML SYG SC (08:25)
[2019-01-29 12:22] LABS: ADD MAN DIFF? NO
[2019-01-29 12:26] LABS: BASOPHIL # 0.1 10^3/ul (0.0-0.1); BASOPHILS % 0.7 % (0.0-2.0); EOSINOPHILS # 0.3 10^3/ul (0.0-0.5); EOSINOPHILS % 3.1 % (0.0-7.0); HEMOGLOBIN 7.5 g/dl (12.0-16.0); LYMPHOCYTES # 2.6 10^3/ul (0.8-2.9); LYMPHOCYTES % 31.6 % (15.0-51.0); MEAN CORPUSCULAR HEMOGLOBIN 32.8 pg (29.0-33.0); MEAN CORPUSCULAR HGB CONC 32.6 g/dl (32.0-37.0); MEAN CORPUSCULAR VOLUME 100.4 fl (82.0-101.0); MEAN PLATELET VOLUME 9.5 fl (7.4-10.4); MONOCYTE # 0.4 10^3/ul (0.3-0.9); MONOCYTES % 4.4 % (0.0-11.0); NEUTROPHIL # 4.5 10^3/ul (1.6-7.5); NEUTROPHILS % 55.7 % (39.0-77.0); PLATELET COUNT 482 10^3/UL (140-415); RED BLOOD COUNT 2.29 10^6/ul (4.20-5.40); RED CELL DISTRIBUTION WIDTH 14.7 % (11.5-14.5)
[2019-01-29 12:26] LABS: WHITE BLOOD COUNT 8.2 10^3/ul (4.8-10.8)
[2019-01-29] MEDS: FAT EMULSION 20% 250 ML IV (14:14)
[2019-01-29] MEDS ORDERED: FAT EMULSION 20% 500 ML IV (15:30)
[2019-01-29] MEDS ORDERED: FAT EMULSION 20% 250 ML IV (16:00)
[2019-01-29] MEDS: FAT EMULSION 20% 500 ML IV (16:33)
[2019-01-29 17:02] LABS: IMMEDIATE SPIN CROSSMATCH 1 1
[2019-01-30] MEDS: TPN 1,000 ML IV (00:37)
[2019-01-30] MEDS: LEVALBUTEROL (NEB) 0.63 MG/3 ML AMP HHN ×4 (01:12→20:22)
[2019-01-30] MEDS: METOCLOPRAMIDE 10 MG INJ IV ×3 (02:26→15:32)
[2019-01-30 06:40] LABS: ANION GAP 5 (5-13); BLOOD UREA NITROGEN 19 mg/dl (7-20); CARBON DIOXIDE 25 mmol/L (21-31); CHLORIDE 107 mmol/L (97-110); CREATININE 0.64 mg/dl (0.44-1.00); GLUCOSE 108 mg/dl (70-220); MAGNESIUM 1.9 mg/dl (1.7-2.5); PHOSPHORUS 3.5 mg/dl (2.5-4.9); POTASSIUM 4.1 mmol/L (3.5-5.1); SODIUM 137 mmol/L (135-144)
[2019-01-30] MEDS: L ACIDOPHIL/B LACTIS/B LONGUM CAPSULE PO (08:43)
[2019-01-30] MEDS: VALPROIC ACID LIQUID CUP 250 MG/5 ML CUP PO ×2 (08:43→15:33)
[2019-01-30] MEDS: DOXYCYCLINE 100 MG TAB PO (08:43)
[2019-01-30 12:34] LABS: OCCULT BLOOD STOOL NEGATIVE (NEGATIVE)
[2019-01-30] MEDS: DAKINS 0.0125%(1/40) 473 ML SOLUTION TP (15:33)
== END 2019-01-30 20:40 | disposition other institution (70) | DRG 329 ==
LOC: TEL 01-13 16:53 → REC 09:59 → ICU 22:04
PROC: 0DBB0ZZ Excision of Ileum, Open Approach (ICD-10-PCS; principal; 2019-01-11 12:00)
PROC: 0DNG0ZZ Release Left Large Intestine, Open Approach (ICD-10-PCS; 2019-01-11 12:00)
PROC: 30233N1 Transfusion of Nonautologous Red Blood Cells into Peripheral Vein, Percutaneous Approach (ICD-10-PCS; 2019-01-11 14:27)
DX: Z43.2 Encounter for attention to ileostomy (principal); N17.0 Acute kidney failure with tubular necrosis; J18.9 Pneumonia, unspecified organism; E87.0 Hyperosmolality and hypernatremia; K56.7 Ileus, unspecified; I95.2 Hypotension due to drugs; E87.6 Hypokalemia; E83.42 Hypomagnesemia; I11.0 Hypertensive heart disease with heart failure; I50.9 Heart failure, unspecified; E66.9 Obesity, unspecified; Z68.28 Body mass index [BMI] 28.0-28.9, adult; D50.9 Iron deficiency anemia, unspecified; R19.7 Diarrhea, unspecified
CPT/HCPCS: 36430; 71045; 71250; 74018; 74176; 74250; 80048; 80053; 81001; 82150; 82270; 82550; 82553; 82728; 83540; 83605; 83690; 83735; 84100; 84134; 84145; 84155; 84300; 84478; 84484; 85025; 85610; 85730; 86850; 86900; 86901; 86920; 87040-91; 87070; 87075; 87081; 87086; 88304; 92526; 92610; 93005; 94640; 94664; 94667; 94668; 97110; 97162; 97530